=== PATIENT | female | born 1940 | race Caucasian/White ===

== ENCOUNTER 2017-10-14 16:54 | Inpatient (IN) | payer MEDICARE ==
[~2017-10-14] VITALS: Ht 170.2 cm; Wt 63.6 kg
[~2017-10-14 16:54] MED LIST: ALBUTEROL SULF8.5 GM; ALLOPURINOL100 MG PO; AMLODIPINE BESY10 MG PO; FISH OIL500 M1 PO; FUROSEMIDE40 MG PO; KIONEX15 GM/60 M PO; METOPROLOL TART50 MG PO; RENVELA800 MG PO; SODIUM BICARBO650 MG PO; VITAMIN D-32000 UNIT PO; WARFARIN SODIU7.5 MG PO; WARFARIN SODIUM1 MG PO
[2017-10-14] MEDS ORDERED: ONDANSETRON HCL INJ 2 MG/ML VIAL IV STA (17:24)
[2017-10-14] MEDS ORDERED: PANTOPRAZOLE 40 MG 10ML VIAL IV STA (17:24)
[2017-10-14] MEDS ORDERED: SODIUM CHLORIDE 0.9% 1000ML 500 ML IV STA (17:24)
[2017-10-14] MEDS ORDERED: SODIUM CHLORIDE 0.9% 1000ML 1,000 ML IV STA (17:24)
[2017-10-14 17:56] LABS: BASOPHILS % 0.2 % (0.0-1.0); HEMATOCRIT 40.5 % (34.2-44.1); HEMOGLOBIN 13.7 g/dL (12.0-16.0); LYMPHOCYTES # (AUTO) 0.8 (1.0-3.2); LYMPHOCYTES % 12.6 % (18.0-39.1); MEAN CORPUSCULAR HEMOGLOBIN 32.8 pg (28-32); MEAN CORPUSCULAR HGB CONC 33.8 g/dL (31-35); MEAN CORPUSCULAR VOLUME 96.9 fL (81-99); MONOCYTES # (AUTO) 0.7 (0.2-0.8); MONOCYTES % 11.6 % (4.4-11.3); NEUTROPHILS # (AUTO) 4.6 (2.1-6.9); NEUTROPHILS % 75.3 % (38.7-80.0); PLATELET COUNT 208 x10e3/uL (140-360); RED BLOOD COUNT 4.18 x10e6/uL (3.6-5.1); RED CELL DISTRIBUTION WIDTH 13.2 % (11.7-14.4)
--- NOTE | 2017-10-14 18:04 | Diagnostic Imaging Report ---
PROCEDURE: A single AP view of the chest. COMPARISON: 07/17/16 INDICATIONS: DEHYDRATION, COUGH FINDINGS: Lines/tubes: None. Lungs: The lungs are well inflated and clear. There is no evidence of pneumonia or pulmonary edema. Pleura: There is no pleural effusion or pneumothorax. Heart and mediastinum: The heart and the mediastinum are unremarkable. Bones: No acute bony abnormality. Questionable air under right hemidiaphragm. IMPRESSION: No acute cardiopulmonary disease. Questionable air under right hemidiaphragm, suspicious for pneumoperitoneum. Alternatively this could be artifactual. Recommend repeat with left lateral decubitus views to further evaluate. Dictated by: Kingsley Mitchell M.D. on 10/14/2017 at 18:12 Electronically approved by: Kingsley Mitchell M.D. on 10/14/2017 at 18:12
[2017-10-14 18:12] LABS: INR 1.74; PROTHROMBIN TIME 21.3 seconds (11.9-14.5)
[2017-10-14 18:13] LABS: PARTIAL THROMBOPLASTIN TIME 57.7 seconds (23.8-35.5)
[2017-10-14 18:20] LABS: ALBUMIN 2.6 g/dL (3.5-5.0); ALBUMIN/GLOBULIN RATIO 0.7 (0.8-2.0); ANION GAP 20.9 mmol/L (8-16); CALCIUM 8.2 mg/dL (8.4-10.2); CREATININE, SERUM 7.76 mg/dL (0.57-1.11); MAGNESIUM 2.4 MG/DL (1.3-2.1); POTASSIUM 3.9 mmol/L (3.5-5.1)
[2017-10-14] MEDS ORDERED: SODIUM CHLORIDE 0.9% 1000ML 1,000 ML IV SCH (18:22)
[2017-10-14] MEDS ORDERED: LEVALBUTEROL HCL SOLN NEBU 1.25 MG/3 ML NEB INH PRN (18:30)
[2017-10-14] MEDS ORDERED: FENTANYL CITRATE/PF 100MCG/2 ML INJ IV ONE (18:30)
[2017-10-14] MEDS ORDERED: ONDANSETRON HCL INJ 2 MG/ML VIAL IV PRN (18:30)
[2017-10-14 18:39] LABS: THYROID STIMULATING HORMONE 3.884 uIU/mL (0.350-4.940); TROPONIN I 0.056 ng/mL (0-0.300)
[2017-10-14] MEDS: IPRATROPIUM BROMIDE 0.02% 2.5 ML NEB NEB SCH (19:00)
[2017-10-14] MEDS ORDERED: IOPAMIDOL 370 MG/ML 200 ML INFUS..BTL INJ ONE (19:22)
[2017-10-14] MEDS ORDERED: SODIUM CHLORIDE 0.9% 50ML 50 ML ONE (19:22)
--- NOTE | 2017-10-14 19:42 | Diagnostic Imaging Report ---
CT scan abdomen and pelvis. October 14, 2017 Clinical history: Dehydration with abdominal pain Technique: Routine protocol CT abdomen and pelvis performed after 100 mL Isovue-370 intravenous contrast. Water enteric contrast was administered. Coronal, sagittal and axial images generated from source data. Dose: 258.81 mGy-cm Comparison: None Findings: Right lower lobe calcified granuloma. Lung bases otherwise clear. No pleural effusions. Normal heart size. Liver: Normal Gallbladder: Normal. No bile duct dilation. Pancreas: Normal Spleen: Normal Adrenal glands: Normal Kidneys: Bilaterally atrophic. Numerous cysts bilaterally (greater than 10 on each kidney) with the largest measuring up to 2 cm in diameter. Ureters and urinary bladder: Normal. Moderate fluid volume in the urinary bladder. Uterus and adnexa: Normal Bowel: Normal caliber. Normal appendix. Peritoneum: Indwelling peritoneal dialysis catheter. Associated pneumoperitoneum. Trace pelvic ascites. Vasculature: Moderate atherosclerosis of the abdominal aorta, iliac arteries and common femoral arteries. Normal caliber. Lymph nodes: Normal Skeleton: Intact. L5-S1 predominant degenerative disc disease, with near complete loss of disc space height. Soft tissues: Normal Impression: 1. No acute abnormality. 2. Indwelling peritoneal dialysis catheter with expected associated pneumoperitoneum. 3. Polycystic kidney disease with atrophic kidneys. This report was generated with voice-recognition technology. Errors in resistance machine welder setter can occur. Please interpret accordingly and contact a radiologist if there are any questions regarding the report. Signed by: Dr. Johnny Woods M.D. on 10/14/2017 7:39 PM
[2017-10-14 22:31] VITALS: BP 114/65
[2017-10-15] VITALS: BP 114/65
[2017-10-15] MEDS: IPRATROPIUM BROMIDE 0.02% 2.5 ML NEB NEB SCH ×2 (01:25→07:00)
[2017-10-15 04:00] VITALS: BP 107/58
[2017-10-15 08:13] LABS: BASOPHILS % 0.2 % (0.0-1.0); EOSINOPHILS % 0.4 % (0.0-6.0); HEMATOCRIT 33.9 % (34.2-44.1); HEMOGLOBIN 11.2 g/dL (12.0-16.0); LYMPHOCYTES # (AUTO) 1.2 (1.0-3.2); LYMPHOCYTES % 25.8 % (18.0-39.1); MEAN CORPUSCULAR HEMOGLOBIN 32.3 pg (28-32); MEAN CORPUSCULAR VOLUME 97.7 fL (81-99); MONOCYTES # (AUTO) 0.5 (0.2-0.8); MONOCYTES % 10.6 % (4.4-11.3); NEUTROPHILS # (AUTO) 2.9 (2.1-6.9); NEUTROPHILS % 62.8 % (38.7-80.0); PLATELET COUNT 189 x10e3/uL (140-360); RED BLOOD COUNT 3.47 x10e6/uL (3.6-5.1); RED CELL DISTRIBUTION WIDTH 13.2 % (11.7-14.4)
[2017-10-15 08:41] LABS: ALBUMIN/GLOBULIN RATIO 0.7 (0.8-2.0); ANION GAP 19.7 mmol/L (8-16); CALCIUM 7.1 mg/dL (8.4-10.2); CREATININE, SERUM 7.77 mg/dL (0.57-1.11); MAGNESIUM 1.9 MG/DL (1.3-2.1); PHOSPHORUS 10.1 MG/DL (2.3-4.7); POTASSIUM 3.7 mmol/L (3.5-5.1)
[2017-10-15 08:42] VITALS: BP 114/58
== END 2017-10-15 08:44 | disposition left against medical advice (07) | DRG 640 ==
LOC: ER 16:54 → ERHOLD 18:36 → MED/SURG3 20:23
PROVIDERS: ADMIT Internal Medicine; ATTEND Internal Medicine
DX: E86.0 Dehydration (principal); N18.6 End stage renal disease; J44.9 Chronic obstructive pulmonary disease, unspecified; Z99.2 Dependence on renal dialysis; F17.200 Nicotine dependence, unspecified, uncomplicated; R60.0 Localized edema; R00.0 Tachycardia, unspecified
CPT/HCPCS: 36415; 71010; 74177; 80053; 82550; 82553; 83690; 83735; 83880; 84100; 84443; 84484; 85025; 85610; 85730; 86850; 86900; 87040; 93005; 99284; J2405; J7030; Q9967

== ENCOUNTER 2018-04-15 04:57 | Inpatient (IN) | payer MEDICARE ==
[2018-04-15 08:00] VITALS: BP 99/88
[2018-04-15 10:22] LABS: BASOPHILS % 0.2 % (0.0-1.0); EOSINOPHILS % 0.2 % (0.0-6.0); HEMATOCRIT 34.2 % (34.2-44.1); HEMOGLOBIN 11.7 g/dL (12.0-16.0); LYMPHOCYTES # (AUTO) 0.8 (1.0-3.2); LYMPHOCYTES % 5.5 % (18.0-39.1); MEAN CORPUSCULAR HEMOGLOBIN 32.3 pg (28-32); MEAN CORPUSCULAR HGB CONC 34.2 g/dL (31-35); MEAN CORPUSCULAR VOLUME 94.5 fL (81-99); MONOCYTES # (AUTO) 1.1 (0.2-0.8); MONOCYTES % 7.6 % (4.4-11.3); NEUTROPHILS # (AUTO) 12.8 (2.1-6.9); NEUTROPHILS % 85.8 % (38.7-80.0); PLATELET COUNT 268 x10e3/uL (140-360); RED BLOOD COUNT 3.62 x10e6/uL (3.6-5.1); RED CELL DISTRIBUTION WIDTH 13.3 % (11.7-14.4)
[2018-04-15] MEDS ORDERED: VANCOMYCIN 1GM/NS 250 ML 250 ML IV SCH (11:00)
[2018-04-15] MEDS ORDERED: VANCOMYCIN 1GM/NS 250 ML 250 ML IV ONE (11:15)
[2018-04-15] MEDS ORDERED: ONDANSETRON HCL INJ 2 MG/ML VIAL IV PRN (11:30)
[2018-04-15 12:00] VITALS: BP 103/70
[2018-04-15] MEDS ORDERED: ACETAMINOPHEN 325 MG TAB PO PRN (12:15)
[2018-04-15] MEDS ORDERED: SODIUM CHLORIDE 0.9% IV ONE (13:00)
[2018-04-15] MEDS ORDERED: VANCOMYCIN HCL IV ONE (13:00)
[2018-04-15 13:15] LABS: INR 1.16; PROTHROMBIN TIME 13.9 seconds (11.9-14.5)
[2018-04-15 13:16] LABS: PARTIAL THROMBOPLASTIN TIME 33.8 seconds (23.8-35.5)
[2018-04-15 16:00] VITALS: BP 100/56
[2018-04-15 18:17] LABS: BODY FLUID TYPE PERITONEAL
[2018-04-15 18:19] LABS: BODY FLUID APPEARANCE CLEAR; BODY FLUID COLOR YELLOW
[2018-04-15 18:22] LABS: RBC,BODY FLUID 5 cells/uL; WBC,BODY FLUID 22 cells/uL
[2018-04-15 20:00] VITALS: BP 100/46
[2018-04-15 20:18] VITALS: BP 100/46
--- NOTE | 2018-04-15 20:21 | Consultation ---
DATE OF CONSULTATION: April 15, 2018 REQUESTING PHYSICIAN: Dr. Orozco. REASON FOR CONSULTATION: CKD, end-stage renal disease. Thank you for allowing us to participate in Ms. Giselle Mclaughlin's care. HISTORY OF PRESENT ILLNESS: This is a 77-year-old female with history of end-stage renal disease, maintained on peritoneal dialysis, came in with worsening abdominal discomfort, mostly epigastric, nausea and vomiting. Peritoneal dialysis fluid has been cleared. She has already been seen at [facility] and subsequently transferred here as they do not have peritoneal dialysis services nor supplies. It was noted that there possibly was more free air than would be expected from simple PD. She think may have had a fever, which she is not entirely sure. No definite contamination is identified during PD process at home. PAST HISTORY: COPD, hypertension, tobacco use, secondary hyperparathyroidism, history of peritoneal dialysis. ALLERGIES: NONE KNOWN. FAMILY HISTORY: Dementia. SOCIAL HISTORY: A 50-pack year history of smoking in the past. MEDICATIONS: Please see list. REVIEW OF SYSTEMS CONSTITUTIONAL: May have had a fever, currently none. GI: Nausea and vomiting plus. CARDIAC: Denying angina or syncope. RESPIRATORY: Some chronic dyspnea, currently not wheezing. NEURO: Denying headache, seizures, but does feel a bit weak. Rest of review is negative. PHYSICAL EXAMINATION GENERAL: Lying in bed in no distress. VITAL SIGNS: Temperature 98, blood pressure 99/88, and pulse 74. HEENT: Atraumatic. NECK: Neck veins are flat. CHEST: Clear. Diminished breath sounds at the bases. ABDOMEN: Soft, but there is definitely some generalized tenderness mostly in the upper half. PD catheter in place. EXTREMITIES: No edema. SKIN: Some sun damage. NEURO: Alert and appropriate. Speech is normal. LABORATORY DATA: Hemoglobin is 11.7. Electrolytes are pending. ASSESSMENT 1. Abdominal pain and end-stage renal disease. Patient is on peritoneal dialysis. There is concerned for peritoneal dialysis peritonitis. 2. History of hypertension, although currently blood pressure somewhat low. She may be volume depleted. 3. History of secondary hyperparathyroidism and hyperphosphatemia that need to be rechecked. PLAN 1. Recheck chemistries in the morning. Get PD fluid for cell counts and cultures. Given the extended , we would go ahead and put in some vancomycin IP at about 30 mg/kg while we are awaiting on the cell counts and cultures results to confirm. 2. Encourage oral hydration for the time being. 3. We will order IV Zofran for the nausea. Job#: [id number] KEYONA
[2018-04-15] MEDS ORDERED: SODIUM CHLORIDE 0.9% 250ML 250 ML ONE (21:43)
[2018-04-15 21:50] LABS: LYMPHOCYTES,BODY FLUID 30 %; MONO/MACROPHG,BODY FLUID 30 %; NEUTROPHILS,BODY FLUID 40 %
[2018-04-15] MEDS: PIPER-TAZ 3.375 GM / NS 50ML IV SCH (21:54)
[2018-04-16] VITALS (7 sets, daily range): BP systolic 82–117; BP diastolic 37–55
[2018-04-16 06:53] LABS: HEMATOCRIT 34.9 % (34.2-44.1); HEMOGLOBIN 11.7 g/dL (12.0-16.0)
[2018-04-16 07:17] LABS: ANION GAP 20.8 mmol/L (8-16); CALCIUM 8.5 mg/dL (8.4-10.2); CREATININE, SERUM 7.64 mg/dL (0.57-1.11); PHOSPHORUS 8.1 MG/DL (2.3-4.7); POTASSIUM 3.8 mmol/L (3.5-5.1)
[2018-04-16 07:32] LABS: ALBUMIN 2.2 g/dL (3.5-5.0); BILIRUBIN,DIRECT 0.4 mg/dL (0.0-0.5)
[2018-04-16 07:38] LABS: INR 1.1; PROTHROMBIN TIME 13.4 seconds (11.9-14.5)
[2018-04-16 07:39] LABS: PARTIAL THROMBOPLASTIN TIME 29.3 seconds (23.8-35.5)
[2018-04-16] MEDS: PIPER-TAZ 3.375 GM / NS 50ML IV SCH ×2 (09:00→22:41)
[2018-04-16] MEDS: FAMOTIDINE 20 MG TAB PO SCH ×2 (09:11→09:12)
[2018-04-16] MEDS: MIDODRINE 2.5 MG TAB PO SCH ×3 (09:11→18:39)
[2018-04-16] MEDS: SEVELAMER CARBONATE 800 MG TAB PO SCH ×2 (12:00→18:40)
[2018-04-16] MEDS: HEPARIN SOD (PORCINE) 5,000 UNIT/ML VIAL SC SCH (22:41)
[2018-04-17] VITALS (7 sets, daily range): BP systolic 95–113; BP diastolic 51–62
[2018-04-17 06:32] LABS: BASOPHILS # (AUTO) 0.1 (0.0-0.1); BASOPHILS % 0.3 % (0.0-1.0); EOSINOPHILS # (AUTO) 0.2 (0.0-0.4); EOSINOPHILS % 1.5 % (0.0-6.0); HEMATOCRIT 37.3 % (34.2-44.1); HEMOGLOBIN 12.4 g/dL (12.0-16.0); LYMPHOCYTES # (AUTO) 1.3 (1.0-3.2); LYMPHOCYTES % 8.4 % (18.0-39.1); MEAN CORPUSCULAR HEMOGLOBIN 32.4 pg (28-32); MEAN CORPUSCULAR HGB CONC 33.2 g/dL (31-35); MEAN CORPUSCULAR VOLUME 97.4 fL (81-99); MONOCYTES # (AUTO) 1.4 (0.2-0.8); MONOCYTES % 8.7 % (4.4-11.3); NEUTROPHILS # (AUTO) 12.4 (2.1-6.9); NEUTROPHILS % 80.5 % (38.7-80.0); PLATELET COUNT 279 x10e3/uL (140-360); RED BLOOD COUNT 3.83 x10e6/uL (3.6-5.1); RED CELL DISTRIBUTION WIDTH 13.2 % (11.7-14.4)
[2018-04-17 06:44] LABS: ANION GAP 20.9 mmol/L (8-16); CALCIUM 8.6 mg/dL (8.4-10.2); CREATININE, SERUM 7.17 mg/dL (0.57-1.11); POTASSIUM 3.9 mmol/L (3.5-5.1)
[2018-04-17] MEDS: MIDODRINE 2.5 MG TAB PO SCH ×3 (08:43→16:30)
[2018-04-17] MEDS: FAMOTIDINE 20 MG TAB PO SCH (08:43)
[2018-04-17] MEDS: PIPER-TAZ 3.375 GM / NS 50ML IV SCH (08:43)
[2018-04-17] MEDS: SEVELAMER CARBONATE 800 MG TAB PO SCH ×3 (08:43→17:11)
[2018-04-17] MEDS: HEPARIN SOD (PORCINE) 5,000 UNIT/ML VIAL SC SCH (08:45)
--- NOTE | 2018-04-17 19:02 | Consultation ---
DATE OF CONSULTATION: April 17, 2018 REASON FOR CONSULTATION: Abdominal pain and leukocytosis. Thank you, Dr. Orozco, for asking me to see this patient. HISTORY: The patient is a 77-year-old woman here for abdominal pain and leukocytosis. She was transferred from [facility] because they did not have peritoneal dialysis services. She presented there with epigastric pain associated with nausea, but did not vomit. She denies diarrhea and fever. Also, she did not eat out. CT scan of the abdomen and pelvis at [facility] showed moderate free air within the abdomen, which could be related to peritoneal dialysis or bowel perforation was not excluded. Initial laboratory studies showed a white blood cell count of 16,900 and serum lipase 87. Later, peritoneal fluid at [facility] was clear with wbcs of 22 and neutrophils 40. Currently, the patient feels fine and wants to go home. PAST MEDICAL HISTORY: Hypertension, chronic obstructive pulmonary disease, end-stage renal disease, on peritoneal dialysis for 3 years. PAST SURGICAL HISTORY: Subtotal thyroidectomy and peritoneal dialysis catheter placement. ALLERGIES: NO KNOWN DRUG ALLERGIES. MEDICATIONS: The current antibiotic is Zosyn 3.375 g IVPB q.12 h. She received 4 g of vancomycin in dual with dialysate yesterday. IMMUNIZATIONS: She received pneumococcal and tetanus vaccination prior to admission. FAMILY HISTORY: Significant for Alzheimer disease. SOCIAL HISTORY: She still smokes cigarettes about 1 pack a day for more than 50 years. No alcohol use. REVIEW OF SYSTEMS: As per history of present illness. The patient denies fever, chills, cough, shortness of breath, nausea, vomiting. Abdominal pain has resolved. There is no diarrhea. She has a good appetite and eating well. She makes very little urine and has no dysuria. The patient reports having receiving dialysis catheter for more than 3 years, and she is meticulous at home with peritoneal dialysis catheter care. She does not recall any infection of the peritoneal dialysis catheter site or peritonitis since commencing with peritoneal dialysis about 3 years ago. PHYSICAL EXAMINATION GENERAL: In no acute distress. Does not appear toxic. VITAL SIGNS: T-max 97.7, pulse 75, respiratory rate 18, blood pressure 97/56. Weight 142 pounds. HEENT: Normocephalic. There is no icterus or injection of conjunctivae. There is no ear or nasal discharge. Moist oral mucosa. No pharyngeal erythema is noted. NECK: Supple. No lymphadenopathy or meningismus. LUNGS: Clear to auscultation bilaterally. HEART: Normal S1 and S2. ABDOMEN: The peritoneal dialysis catheter site is without redness. Milking the catheter site produced no discharge. There is no tenderness on palpation. Also, there is no rebound tenderness. EXTREMITIES: There is no edema, clubbing or cyanosis. SKIN: There is no acute erythema. DIRECTOR OF LITIGATION: Awake, alert and oriented to person, place and time. Nonfocal. LABORATORY AND DIAGNOSTICS: WBC 15,430, hemoglobin 12.4 and platelets 279,000. Neutrophils 80.5, lymphs 8.4, monos 8.7, eosinophils 1.5, basophils 0.3. AST 8, ALT 10, alk phos 107, total bilirubin 0.7, lipase 11. Gram stain of peritoneal fluid showed few wbcs. No organisms. The culture showed no growth after 2 days. IMPRESSION 1. Leukocytosis: Etiology is unclear at this time. 2. Epigastric pain: May be due to gastritis. Peritonitis appears less likely with peritoneal fluid white blood cells of 22. 3. End-stage renal disease, on peritoneal dialysis. 4. Chronic obstructive pulmonary disease. 5. Tobacco use disorder. PLAN 1. Await peritoneal fluid culture results. 2. Switch Zosyn to 2.25 g IVPB q.12 h. Antibiotics should be stopped if final culture result is negative. 3. Smoking cessation counseling has been provided to the patient. Job#: [id number] NV
[2018-04-17] MEDS: APIXABAN 5 MG TABLET PO SCH (20:51)
--- NOTE | 2018-04-17 21:48 | Consultation ---
DATE OF CONSULTATION: April 16, 2018 REQUESTING PHYSICIAN: Dr. Eugenio Orozco REASON FOR CONSULTATION: Evaluation and management of the patient with known history of right leg DVT, chronic greater saphenous vein thrombosis and history of lupus anticoagulant. HISTORY OF PRESENT ILLNESS: Ms. Mclaughlin is a very pleasant, 77-year-old female with multiple medical problems including known history of COPD, hypertension, secondary hyperparathyroidism, end-stage renal disease on peritoneal dialysis, history of right leg DVT and right greater saphenous vein thrombosis as well as positive lupus anticoagulant. In the past, she had been evaluated by hematology and recommended life-long anticoagulation at [facility]. She had been followed at [facility]mad[facility] clinic, but apparently having hard time maintaining INR. She was admitted to the inpatient floor with abdominal discomfort which was felt to be due to infection. She has been started on IV antibiotics and infectious disease on board. Hematology, oncology has been consulted to assist with the management. Presently, the patient is lying comfortably, not in acute distress. She is breathing normally. She denies any nausea, vomiting. PAST MEDICAL HISTORY: 1. COPD. 2. Hypertension. 3. End-stage renal disease on peritoneal dialysis. 4. Hyperparathyroidism. 5. History of right leg DVT. 6. History of right chronic greater saphenous vein thrombosis. 7. History of positive lupus anticoagulants. 8. Chronic anticoagulation with refractoriness to Coumadin therapy. ALLERGIES: NO KNOWN DRUG ALLERGIES. FAMILY HISTORY: Positive for dementia. SOCIAL HISTORY: The patient has been heavy smoker with [id number] history. Denies alcohol use or illicit drug use. CURRENT MEDICATIONS: As per electronic medical records. SYSTEM REVIEW: A 14-point review of systems negative except as mentioned above in history of presenting illness. PHYSICAL EXAMINATION VITAL SIGNS: Reviewed and as per electronic medical record. HEENT: PERRLA. Extraocular movements are intact. Head atraumatic, normocephalic. NECK: Supple. CVS: S1/S2 audible. RESPIRATORY: Decreased bilateral air entry. ABDOMEN: Positive bowel sounds. EXTREMITIES: Negative edema. NEURO: Patient is alert, awake. LABORATORY DATA: White blood cell count of 15.4, hemoglobin 12.4, hematocrit 37.3, platelets 279,000. INR 1.1. ASSESSMENT AND PLAN: Ms. Mclaughlin is a very pleasant 77-year-old female with multiple medical problems including known history of end-stage renal disease on peritoneal dialysis as well as history of right leg DVT and positive lupus anticoagulant. She presented with abdominal pain. She had been started on IV antibiotics for presumed peritonitis. CT scan of the abdomen was performed and did not show any acute abnormalities. I had a long discussion with the patient about her current status. She has been having difficult time maintaining INR and it continues to stay on the low side. Apparently in the past she has been recommended to be on life-long anticoagulation due to chronic thrombosis as well as positive lupus anticoagulant. At this point, recommendation would be to discontinue Coumadin as well as heparin. I will start the patient on Eliquis, renal adjusted dose at 5 mg p.o. q.12 h. She needs a close followup as an outpatient. Thank you for the consult. I will continue to be available. Please call with questions. Job#: [id number] GH [id number]
[2018-04-17] MEDS: PIPERACILLIN/TAZO 2.25 GM 50 ML IV SCH (22:15)
[2018-04-18] VITALS (7 sets, daily range): BP systolic 102–120; BP diastolic 48–75
[2018-04-18 05:50] LABS: BASOPHILS % 0.3 % (0.0-1.0); EOSINOPHILS % 0.3 % (0.0-6.0); HEMATOCRIT 34.3 % (34.2-44.1); HEMOGLOBIN 11.2 g/dL (12.0-16.0); LYMPHOCYTES # (AUTO) 2.8 (1.0-3.2); MEAN CORPUSCULAR HEMOGLOBIN 29.6 pg (28-32); MEAN CORPUSCULAR HGB CONC 32.7 g/dL (31-35); MEAN CORPUSCULAR VOLUME 90.5 fL (81-99); MONOCYTES # (AUTO) 1.2 (0.2-0.8); MONOCYTES % 8.3 % (4.4-11.3); NEUTROPHILS # (AUTO) 9.8 (2.1-6.9); NEUTROPHILS % 70.6 % (38.7-80.0); PLATELET COUNT 169 x10e3/uL (140-360); RED BLOOD COUNT 3.79 x10e6/uL (3.6-5.1); RED CELL DISTRIBUTION WIDTH 13.6 % (11.7-14.4)
[2018-04-18 07:13] LABS: ANION GAP 15.7 mmol/L (8-16); CREATININE, SERUM 1.77 mg/dL (0.57-1.11); POTASSIUM 3.7 mmol/L (3.5-5.1)
[2018-04-18] MEDS: PIPERACILLIN/TAZO 2.25 GM 50 ML IV SCH ×2 (08:53→22:07)
[2018-04-18] MEDS: MIDODRINE 2.5 MG TAB PO SCH ×3 (08:53→16:26)
[2018-04-18] MEDS: SEVELAMER CARBONATE 800 MG TAB PO SCH ×3 (08:53→16:26)
[2018-04-18] MEDS: APIXABAN 5 MG TABLET PO SCH ×2 (08:53→22:07)
[2018-04-18] MEDS: FAMOTIDINE 20 MG TAB PO SCH (08:53)
[2018-04-18] MEDS ORDERED: LACTULOSE SYRUP 20 GM/30 ML UDC PO ONE (09:00)
[2018-04-18] MEDS ORDERED: HEPARIN SOD (PORCINE) 1000 UNIT/ML 10ML MDV IM ONE (20:45)
[2018-04-18] MEDS ORDERED: HEPARIN SOD (PORCINE) 1000 UNIT/ML SDV IV PRN (20:45)
--- NOTE | 2018-04-18 21:43 | Consultation ---
DATE OF CONSULTATION: April 18, 2018 This is a 77-year-old, who presented with abdominal pain and some leukocytosis. Pain was in epigastric area associated with some nausea, but she denies any vomiting with this problem. She denies any history of ulcer disease in the past. She reports that the pain actually is better now. She had a CAT scan of abdomen and pelvis upon admission initially, which showed moderate free air within the abdomen, which could be related to peritoneal dialysis. Initial laboratory was showing white blood cell count, which is 16.9. She currently feels okay and denies any abdominal pain. Other medical problems include history of hypertension, history of COPD, end-stage renal disease on peritoneal dialysis for 3 years. She is status post subtotal thyroidectomy. ALLERGIES: NONE. CURRENT MEDICATIONS: Renvela, , Eliquis, Pepcid, Zofran. SOCIAL HISTORY: No alcohol use. FAMILY HISTORY: Noncontributory. REVIEW OF SYSTEMS: Denies any chest pain. Denies any shortness of breath. Denies any dysphagia or odynophagia. Denies any dysuria or hematuria or any kind of syncopal episodes. EXAMINATION GENERAL: Awake, alert, appears to be stable. No acute distress at this point. VITAL SIGNS: Afebrile currently with stable vital signs. HEAD, EYES, EARS, NOSE, THROAT: Normocephalic. Sclerae are anicteric. NECK: Supple. HEART: Regular. LUNGS: Clear. ABDOMEN: Soft. There is no distention at this point. Nontender at this point. There is no rebound. EXTREMITIES: No clubbing. LAB VALUES: As of today, WBC of 13.87. BUN 44, creatinine 1.77. IMPRESSIONS 1. Abdominal pain. Patient initially had nausea. Currently is doing better. 2. End-stage renal disease, on hemodialysis. 3. Leukocytosis. Etiology unclear at this point. RECOMMENDATIONS: Continue on the current care at this point. Patient reports that she is doing better, so I will not do any endoscopy at this point. If symptoms persist or recur, then we will consider upper endoscopy. Job#: [id number] cc:MD DR PAN VILLANUEVA
[2018-04-19] VITALS (7 sets, daily range): BP systolic 70–107; BP diastolic 37–60
[2018-04-19] MEDS ORDERED: MIDODRINE 2.5 MG TAB PO ONE (04:45)
[2018-04-19] MEDS ORDERED: MIDODRINE 2.5 MG TAB PO SCH (08:00)
[2018-04-19] MEDS: FAMOTIDINE 20 MG TAB PO SCH (08:15)
[2018-04-19] MEDS: PIPERACILLIN/TAZO 2.25 GM 50 ML IV SCH ×2 (08:15→20:43)
[2018-04-19] MEDS: SEVELAMER CARBONATE 800 MG TAB PO SCH ×3 (08:15→17:15)
[2018-04-19] MEDS: APIXABAN 5 MG TABLET PO SCH ×2 (08:15→20:43)
[2018-04-19] MEDS: MIDODRINE 2.5 MG TAB PO SCH ×2 (11:01→17:15)
[2018-04-20] VITALS (7 sets, daily range): BP systolic 79–116; BP diastolic 47–62
[2018-04-20 06:41] LABS: BASOPHILS % 0.2 % (0.0-1.0); EOSINOPHILS # (AUTO) 0.3 (0.0-0.4); HEMATOCRIT 33.9 % (34.2-44.1); HEMOGLOBIN 11.2 g/dL (12.0-16.0); LYMPHOCYTES # (AUTO) 1.4 (1.0-3.2); LYMPHOCYTES % 9.8 % (18.0-39.1); MEAN CORPUSCULAR HEMOGLOBIN 32.2 pg (28-32); MEAN CORPUSCULAR VOLUME 97.4 fL (81-99); MONOCYTES # (AUTO) 1.1 (0.2-0.8); MONOCYTES % 7.6 % (4.4-11.3); NEUTROPHILS # (AUTO) 11.2 (2.1-6.9); NEUTROPHILS % 79.4 % (38.7-80.0); PLATELET COUNT 360 x10e3/uL (140-360); RED BLOOD COUNT 3.48 x10e6/uL (3.6-5.1); RED CELL DISTRIBUTION WIDTH 13.1 % (11.7-14.4)
[2018-04-20 06:55] LABS: ANION GAP 20.4 mmol/L (8-16); CALCIUM 8.5 mg/dL (8.4-10.2); CREATININE, SERUM 6.07 mg/dL (0.57-1.11); POTASSIUM 3.4 mmol/L (3.5-5.1)
[2018-04-20] MEDS: SEVELAMER CARBONATE 800 MG TAB PO SCH ×3 (08:20→17:12)
[2018-04-20] MEDS: MIDODRINE 2.5 MG TAB PO SCH ×3 (08:20→16:19)
[2018-04-20] MEDS: APIXABAN 5 MG TABLET PO SCH ×2 (09:36→21:20)
[2018-04-20] MEDS: FAMOTIDINE 20 MG TAB PO SCH (09:36)
[2018-04-20] MEDS: PIPERACILLIN/TAZO 2.25 GM 50 ML IV SCH (09:40)
[2018-04-20] MEDS ORDERED: SODIUM CHLORIDE 0.9% 1000ML 1,000 ML IV ONE (15:00)
--- NOTE | 2018-04-20 15:09 | Discharge Summary ---
INCOMPLETE REPORT - CANCELLED REGGIE PERLA M.D. Job#: [id number] EV
[2018-04-21] VITALS (9 sets, daily range): BP systolic 101–112; BP diastolic 48–59
[2018-04-21 06:47] LABS: CREATININE, SERUM 7.19 mg/dL (0.57-1.11)
[2018-04-21 07:12] LABS: BASOPHILS % 0.2 % (0.0-1.0); EOSINOPHILS # (AUTO) 0.3 (0.0-0.4); EOSINOPHILS % 2.4 % (0.0-6.0); HEMATOCRIT 30.4 % (34.2-44.1); HEMOGLOBIN 10.1 g/dL (12.0-16.0); LYMPHOCYTES % 15.8 % (18.0-39.1); MEAN CORPUSCULAR HEMOGLOBIN 32.2 pg (28-32); MEAN CORPUSCULAR HGB CONC 33.2 g/dL (31-35); MEAN CORPUSCULAR VOLUME 96.8 fL (81-99); MONOCYTES # (AUTO) 1.1 (0.2-0.8); MONOCYTES % 8.4 % (4.4-11.3); NEUTROPHILS # (AUTO) 9.2 (2.1-6.9); NEUTROPHILS % 72.3 % (38.7-80.0); PLATELET COUNT 364 x10e3/uL (140-360); RED BLOOD COUNT 3.14 x10e6/uL (3.6-5.1); RED CELL DISTRIBUTION WIDTH 13.1 % (11.7-14.4)
[2018-04-21] MEDS: SEVELAMER CARBONATE 800 MG TAB PO SCH ×3 (08:35→16:26)
[2018-04-21] MEDS: MIDODRINE 2.5 MG TAB PO SCH ×3 (08:35→16:26)
[2018-04-21] MEDS: APIXABAN 5 MG TABLET PO SCH ×2 (08:35→19:55)
[2018-04-21] MEDS: FAMOTIDINE 20 MG TAB PO SCH (08:35)
[2018-04-21] MEDS ORDERED: HEPARIN SOD (PORCINE) 1000 UNIT/ML SDV IV PRN (11:30)
--- NOTE | 2018-04-21 13:28 | Diagnostic Imaging Report ---
PROCEDURE:X-RAY ABDOMEN - KUB COMPARISON:CT abdomen and pelvis with contrast 10/14/2017. INDICATIONS:PERITONITIS FINDINGS: Indwelling peritoneal dialysis catheter is unchanged in position. Bowel gas pattern shows no dilated, air-filled loops of bowel. Gas and fecal material is noted throughout the large bowel. No mass effect or organomegaly. Right lower lobe calcified granuloma with otherwise clear lung bases. Regional skeletal structures are intact. Degenerative changes of the sacroiliac joints. CONCLUSION: Nonobstructive bowel gas pattern. Dictated by: Bob Ghosh M.D. on 04/21/2018 at 13:32 Electronically approved by: Bob Ghosh M.D. on 04/21/2018 at 13:32
--- NOTE | 2018-04-21 17:40 | Diagnostic Imaging Report ---
PROCEDURE:X-RAY ABDOMEN - KUB COMPARISON:Same day at 1251 hrs. INDICATIONS:PD CATHETER FINDINGS: See conclusion. CONCLUSION: Limited study due to underpenetration. Indwelling peritoneal dialysis catheter is unchanged in position. Nonobstructive bowel gas pattern. Dictated by: Kingsley Mitchell M.D. on 04/21/2018 at 17:44 Electronically approved by: Kingsley Mitchell M.D. on 04/21/2018 at 17:44
[2018-04-22 04:40] VITALS: BP 105/49
[2018-04-22 06:21] LABS: BASOPHILS % 0.2 % (0.0-1.0); EOSINOPHILS # (AUTO) 0.3 (0.0-0.4); EOSINOPHILS % 2.6 % (0.0-6.0); HEMATOCRIT 29.7 % (34.2-44.1); HEMOGLOBIN 9.8 g/dL (12.0-16.0); LYMPHOCYTES # (AUTO) 1.9 (1.0-3.2); MEAN CORPUSCULAR VOLUME 97.1 fL (81-99); MONOCYTES # (AUTO) 0.8 (0.2-0.8); NEUTROPHILS # (AUTO) 8.5 (2.1-6.9); NEUTROPHILS % 73.1 % (38.7-80.0); PLATELET COUNT 373 x10e3/uL (140-360); RED BLOOD COUNT 3.06 x10e6/uL (3.6-5.1)
[2018-04-22 06:33] LABS: ANION GAP 17.8 mmol/L (8-16); CALCIUM 8.2 mg/dL (8.4-10.2); CREATININE, SERUM 6.5 mg/dL (0.57-1.11); POTASSIUM 3.8 mmol/L (3.5-5.1)
[2018-04-22 07:57] VITALS: BP 105/49
[2018-04-22] MEDS: MIDODRINE 2.5 MG TAB PO SCH ×2 (08:00→11:56)
[2018-04-22] MEDS: SEVELAMER CARBONATE 800 MG TAB PO SCH ×2 (08:00→11:56)
[2018-04-22 08:11] VITALS: BP 119/59
[2018-04-22] MEDS: APIXABAN 5 MG TABLET PO SCH (08:27)
[2018-04-22] MEDS: FAMOTIDINE 20 MG TAB PO SCH (08:27)
[2018-04-22] MEDS ORDERED: ELIQUIS 5 MG (11:25)
[2018-04-22] MEDS ORDERED: MIDODRINE HCL10 MG PO (11:27)
[2018-04-22 11:50] VITALS: BP 105/60
--- NOTE | 2018-04-22 18:11 | Discharge Summary ---
FINAL DIAGNOSIS: Abdominal pain of unclear etiology. SECONDARY DIAGNOSES 1. Per report, right leg deep venous thrombosis with positive lupus anticoagulant antibody. 2. End-stage renal disease on peritoneal dialysis. 3. Chronic hypotension on midodrine. CONSULTANTS 1. Dr. Choudhary, GI. 2. Dr. Nuñez, infectious disease. 3. Dr. Max, hematology. 4. Dr. Valdez, nephrology. PROCEDURES/STUDIES PERFORMED: CT of the abdomen and pelvis, which was done at [facility], was fairly unremarkable. HISTORY: Per H and P. HOSPITAL COURSE: The patient was admitted. Her peritoneal fluid cell count was negative for peritonitis. However, the patient continued to have leukocytosis of about 14, although she is afebrile. A short course of Zosyn was given. The patient gradually felt better. The nausea and vomiting have resolved. The abdominal pain has resolved. Currently tolerating p.o. The patient is ambulating just fine. At one time, EGD was recommended by GI; however, the patient refused. The patient was continued on peritoneal dialysis here. Midodrine was added for chronic hypotension. The patient was also evaluated by hematology. Given the fact that the patient has right leg DVT and positive lupus anticoagulant antibody, she needs lifelong anticoagulation. However, she had a hard time following up with Coumadin clinic. After evaluation by hematology, Eliquis 5 mg p.o. b.i.d. was started. I have updated her PCP about this hospitalization. It took 32 minutes total to discharge this patient today. The patient was seen and examined today. CONDITION ON DISCHARGE: Stable. DISCHARGE MEDICATIONS: Please see medication reconciliation form. REGGIE PERLA M.D. Job#: [id number] cc:HAYDEE WARREN MD
== END 2018-04-22 12:10 | disposition home or self-care (01) | DRG 391 ==
LOC: MED/SURG2 06:50
PROVIDERS: ADMIT Internal Medicine; ATTEND Internal Medicine
PROC: 3E1M39Z Irrigation of Peritoneal Cavity using Dialysate, Percutaneous Approach (ICD-10-PCS; principal; 2018-04-15)
DX: R10.9 Unspecified abdominal pain (principal); N18.6 End stage renal disease; I12.0 Hypertensive chronic kidney disease with stage 5 chronic kidney disease or end stage renal disease; I82.5Z1 Chronic embolism and thrombosis of unspecified deep veins of right distal lower extremity; E87.1 Hypo-osmolality and hyponatremia; N25.81 Secondary hyperparathyroidism of renal origin; Z99.2 Dependence on renal dialysis; I95.89 Other hypotension; R76.0 Raised antibody titer; Z79.01 Long term (current) use of anticoagulants; F17.210 Nicotine dependence, cigarettes, uncomplicated; J44.9 Chronic obstructive pulmonary disease, unspecified; D72.829 Elevated white blood cell count, unspecified; K29.70 Gastritis, unspecified, without bleeding; E83.39 Other disorders of phosphorus metabolism; D63.1 Anemia in chronic kidney disease
CPT/HCPCS: 36415; 74018; 80048; 80076; 83690; 84100; 85014; 85018; 85025; 85610; 85730; 87070; 87205; 89051; 96367; 97139; J1644; J2405; J2543; J3370; J7030; J7040; J7050

== ENCOUNTER 2018-05-19 11:46 | Emergency (ER) | payer MEDICARE ==
[~2018-05-19] VITALS: Ht 170.2 cm; Wt 64.4 kg
[~2018-05-19 11:46] MED LIST changes: +ELIQUIS 5 MG; +MIDODRINE HCL10 MG PO
[2018-05-19] MEDS ORDERED: SODIUM CHLORIDE 0.9% 250ML 250 ML IV ONE (12:00)
[2018-05-19 12:08] LABS: BASOPHILS % 0.3 % (0.0-1.0); EOSINOPHILS # (AUTO) 0.2 (0.0-0.4); EOSINOPHILS % 1.8 % (0.0-6.0); HEMATOCRIT 33.3 % (34.2-44.1); HEMOGLOBIN 11.2 g/dL (12.0-16.0); LYMPHOCYTES # (AUTO) 1.6 (1.0-3.2); LYMPHOCYTES % 15.7 % (18.0-39.1); MEAN CORPUSCULAR HEMOGLOBIN 33.6 pg (28-32); MEAN CORPUSCULAR HGB CONC 33.6 g/dL (31-35); MONOCYTES # (AUTO) 0.7 (0.2-0.8); MONOCYTES % 6.5 % (4.4-11.3); NEUTROPHILS # (AUTO) 7.6 (2.1-6.9); NEUTROPHILS % 75.2 % (38.7-80.0); PLATELET COUNT 274 x10e3/uL (140-360); RED BLOOD COUNT 3.33 x10e6/uL (3.6-5.1); RED CELL DISTRIBUTION WIDTH 15.1 % (11.7-14.4)
[2018-05-19 12:18] LABS: INR 1.1; PROTHROMBIN TIME 13.4 seconds (11.9-14.5)
[2018-05-19 12:19] LABS: PARTIAL THROMBOPLASTIN TIME 33.8 seconds (23.8-35.5)
[2018-05-19 12:26] LABS: ALBUMIN 2.3 g/dL (3.5-5.0); ALBUMIN/GLOBULIN RATIO 0.8 (0.8-2.0); ANION GAP 18.2 mmol/L (8-16); CREATININE, SERUM 8.05 mg/dL (0.57-1.11); POTASSIUM 3.2 mmol/L (3.5-5.1)
[2018-05-19 12:32] LABS: CREATINE KINASE MB 1.3 ng/mL (0-5.0)
--- NOTE | 2018-05-19 12:50 | Diagnostic Imaging Report ---
PROCEDURE: A single AP view of the chest. COMPARISON: 10/14/2017 INDICATIONS: WEAKNESS, LOW BLOOD PRESSURE FINDINGS: Lines/tubes: None. Lungs: The lungs are well inflated and clear. There is no evidence of pneumonia or pulmonary edema. Healed granuloma in right lung base, unchanged Pleura: There is no pleural effusion or pneumothorax. Biapical pleural/parenchymal scarring. Heart and mediastinum: Normal heart size. Calcific atherosclerosis of the thoracic aorta. Multiple surgical clips along the right side of the trachea, unchanged. Bones: No acute bony abnormality. IMPRESSION: 1. No evidence of infection or edema Dictated by: Alvin Marina M.D. on 05/19/2018 at 12:55 Electronically approved by: Alvin Marina M.D. on 05/19/2018 at 12:55
== END 2018-05-19 15:32 | disposition home or self-care (01) ==
LOC: ER 11:46
DX: R11.0 Nausea (principal); R53.1 Weakness; N19 Unspecified kidney failure; Z99.2 Dependence on renal dialysis; J44.9 Chronic obstructive pulmonary disease, unspecified; Z86.718 Personal history of other venous thrombosis and embolism
CPT/HCPCS: 36415; 71045; 80053; 82550; 82553; 83605; 83690; 84484; 85025; 85610; 85730; 93005; 99284; J7050

== ENCOUNTER 2019-04-07 19:37 | Inpatient (IN) | payer MEDICARE ==
[~2019-04-07] VITALS: Ht 170.2 cm; Wt 79.0 kg
--- NOTE | 2019-04-07 22:00 | NUR ---
Received report from Naye SIFUENTES from [facility] for Direct Admit.
--- OUTSIDE RECORDS SUMMARY | 2019-04-07 22:25 | XMS REPORT | Clinical Summary ---
Author Author LUCY [email or web address] Organization [facility] [employer] [facility] Address Unknown Phone Unavailable Care Team Providers Care Supervisor Baking Name Role Phone Lizzeth Luevano PCP Unavailable Oliver Oconnor Unavailable Allergies Comments Active Allergy Reactions Severity Noted Date Myalgia Pravastatin Other (See 10/29/2015 Comments) Medications End Date Status Medication Sig Dispensed Refills Start Date Active metoprolol (LOPRESSOR) 50 Take 50 mg by 0 MG tabletIndications: mouth 2 (two) ESRD (end stage renal times daily. disease) ([facility]) Active sodium bicarbonate 325 MG Take 650 mg 0 tabletIndications: ESRD by mouth 2 (end stage renal disease) (two) times ([facility]) daily. Active furosemide (LASIX) 20 MG Take 20 mg by 0 tabletIndications: ESRD mouth daily. (end stage renal disease) ([facility]) Active omega-3 fatty Take by mouth 0 acids-vitamin E 1,000 mg daily. CapIndications: ESRD (end stage renal disease) ([facility]) Active cholecalciferol, vitamin Take 2,000 0 D3, 2,000 unit Units by TabIndications: ESRD (end mouth daily. stage renal disease) ([facility]) Active albuterol HFA (VENTOLIN Inhale 1 puff 0 HFA) 90 mcg/actuation by mouth via inhalerIndications: ESRD inhaler as (end stage renal disease) needed for ([facility]) Wheezing. Active allopurinol (ZYLOPRIM) Take 100 mg 0 100 MG tabletIndications: by mouth ESRD (end stage renal daily. disease) ([facility]) Active colchicine (COLCRYS) 0.6 Take 0.6 mg 0 mg tabletIndications: by mouth as ESRD (end stage renal needed. disease) ([facility]) Active warfarin (COUMADIN) 7.5 Take 7.5 mg 0 MG tabletIndications: by mouth ESRD (end stage renal daily 5 days disease) ([facility]) of the week . Active warfarin (COUMADIN) 5 MG Take 5 mg by 0 tabletIndications: ESRD mouth daily 2 (end stage renal disease) days out of ([facility]) the week . Active amLODIPine (NORVASC) 10 Take 10 mg by 0 MG tabletIndications: mouth daily. ESRD (end stage renal disease) ([facility]) Active mupirocin (BACTROBAN) 2 % by Nasal 0 nasal route as ointmentIndications: ESRD needed Use (end stage renal disease) one-half of ([facility]) tube in each nostril twice daily for five (5) days. After application, press sides of nose together and gently massage. . Active SODIUM POLYSTYRENE Take by mouth 0 SULFONATE (KIONEX as needed. ORAL)Indications: ESRD (end stage renal disease) ([facility]) Active Problems Problem Noted Date ESRD (end stage renal disease) 11/03/2015 Encounters Care Team Description Date Type Specialty Doris Waters RN 10/23/2018 Abstract Transplant after 04/06/2018 Family History Relation Name Status Comments Mother Social History Date Tobacco Use Types Packs/Day Years Used Current Every Day Smoker 1 50 Alcohol Use Drinks/Week oz/Week Comments Yes occasionally Sex Assigned at Date Recorded Not on file Industry Job Start Date Occupation Not on file Not on file Not on file Travel End Travel History Travel Start No recent travel history available. Last Filed Vital Signs Not on file Plan of Treatment Health Maintenance Due Date Last Done Comments INFLUENZA VACCINE 07/24/2018 Implants Device Identifier Shelf Expiration Date Model / Serial / Lot Implanted Type Area [facility] 06/24/2020 [id number] / / [id number] Catheter Kit,Peritoneal Dialysis Catheter N/A: Abdomen COVIDIEN Curl 62cm - [id number] Dialysis Implanted: Qty: 1 on 11/03/2015 by Measurement OperatorHeber Jacobs MD Results Not on fileafter 04/06/2018 Insurance Payer Benefit Subscriber ID Type Phone Address Plan / [facility] MEDICARE ADV Advance Directives For more information, please contact: [facility] [address] [place] [address] Date Inactivated Comments Code Status Date Activated 11/03/2015 3:07 PM Full Code 11/03/2015 5:48 AM This code status was determined by: Patient
[2019-04-07] MEDS ORDERED: DEXTROSE 50% SYRINGE 50 ML IV PRN (22:45)
--- NOTE | 2019-04-07 23:00 | NUR ---
Received patient from [place] via stretcher. AAOx3, no resp distress. On 2L n/c. Denies taking O2 at home. Amb to bed to chair with assistance. Noted port to LLQ ABD with swelling and tender to touch. Abd rigid. Denies pain at this time. Call light within reach and instructed to call for assistance. Notified Dialysis nurse of patient's arrival.
[2019-04-07] MEDS: ONDANSETRON HCL INJ 2MG/ML 2ML 2 MG/ML VIAL IV PRN (23:10)
[2019-04-07 23:13] VITALS: BP 141/68
[2019-04-07 23:30] VITALS: BP 141/68
[2019-04-08] VITALS (8 sets, daily range): BP systolic 107–142; BP diastolic 64–75
[2019-04-08] MEDS ORDERED: GENTAMICIN IV ONE (00:45)
[2019-04-08] MEDS ORDERED: [UNRECOGNIZED DRUG - OTHER] IV ONE (00:45)
[2019-04-08] MEDS ORDERED: VANCOMYCIN IV ONE (00:45)
[2019-04-08] MEDS ORDERED: [UNRECOGNIZED DRUG - OTHER] IV ONE (00:45)
--- NOTE | 2019-04-08 00:50 | NUR ---
Received orders from dialysis nurse from for vanco 5grams and Gent 200mg for intraperotonial dialysis
[2019-04-08] MEDS ORDERED: VANCOMYCIN 1GM/NS 250 ML 0 ML IV ONE (01:15)
[2019-04-08] MEDS ORDERED: GENTAMICIN 80MG/NS 100 ML 0 ML IV SCH (01:45)
[2019-04-08] MEDS ORDERED: GENTAMICIN SULFATE 40 MG/ML 2 ML VIAL ONE (01:53)
--- NOTE | 2019-04-08 05:06 | NUR ---
Dialysis nurse call Md and notified of vomiting brown fluids during dialysis. Md stated to continue dialysis.
[2019-04-08] MEDS: ONDANSETRON HCL INJ 2MG/ML 2ML 2 MG/ML VIAL IV PRN ×2 (05:07→11:08)
--- NOTE | 2019-04-08 05:30 | NUR ---
Patient requesting to stop dialysis due to vomiting. Paged Dr. Valdez.
--- NOTE | 2019-04-08 05:35 | NUR ---
call center professional MD agreed to d/c dialysis.
[2019-04-08 06:18] LABS: BASOPHILS % 0.1 % (0.0-1.0); HEMATOCRIT 40.1 % (34.2-44.1); HEMOGLOBIN 12.5 g/dL (12.0-16.0); LYMPHOCYTES # (AUTO) 0.5 (1.0-3.2); MEAN CORPUSCULAR HEMOGLOBIN 30.3 pg (28-32); MEAN CORPUSCULAR HGB CONC 31.2 g/dL (31-35); MEAN CORPUSCULAR VOLUME 97.3 fL (81-99); MONOCYTES # (AUTO) 0.6 (0.2-0.8); NEUTROPHILS # (AUTO) 14.6 (2.1-6.9); NEUTROPHILS % 92.3 % (38.7-80.0); PLATELET COUNT 572 x10e3/uL (140-360); RED BLOOD COUNT 4.12 x10e6/uL (3.6-5.1)
[2019-04-08 06:38] LABS: ANION GAP 19.9 mmol/L (8-16); CREATININE, SERUM 9.48 mg/dL (0.57-1.11); POTASSIUM 3.9 mmol/L (3.5-5.1)
--- NOTE | 2019-04-08 07:00 | NUR ---
BEDSIDE SHIFT REPORT RECEIVED FROM NIGHT RN. PT DENIES NEEDS AT THIS TIME.
[2019-04-08] MEDS: INSULIN LISPRO 100 UNIT/1 ML 3ML VIAL SQ SCH ×2 (07:30→11:30)
--- NOTE | 2019-04-08 13:50 | NUR ---
DIALYSIS CALLED FOR PERITONEAL DIALYSIS TODAY.
[2019-04-08] MEDS: ALBUTEROL/IPRATROPIUM 3 ML NEB NEB SCH ×2 (15:00→23:10)
--- NOTE | 2019-04-08 15:44 | Diagnostic Imaging Report ---
Examination: Single AP view of the chest. COMPARISON: None. INDICATION: COPD DISCUSSION: Lines/tubes: None. Lungs: Left lower lobe opacity with obscured hemidiaphragm. Right lung is clear. Pleura: No pleural effusion or pneumothorax. Heart and mediastinum: The heart and the mediastinum are unremarkable. Bones and soft tissues: No acute bony abnormalities. IMPRESSION: 1. Left lower lobe opacity may reflect atelectasis or pneumonia. Signed by: Dr. Gilbert Barnes M.D. on 04/08/2019 3:41 PM
[2019-04-08] MEDS: APIXABAN 5 MG TABLET PO SCH (15:59)
[2019-04-08] MEDS: SEVELAMER CARBONATE 800 MG TAB PO SCH (15:59)
[2019-04-08] MEDS ORDERED: GENTAMICIN SULFATE 40 MG/ML 2 ML VIAL IV ONE (16:30)
[2019-04-08] MEDS ORDERED: INSULIN LISPRO 100 UNIT/1 ML 3ML VIAL SQ SCH (16:30)
[2019-04-08] MEDS: VANCOMYCIN HCL 750 MG VIAL IV ONE (16:50)
--- NOTE | 2019-04-08 22:30 | Consultation ---
DATE OF CONSULTATION: 04/08/2019 Nephrology Consultation REASON FOR CONSULTATION: End-stage renal disease, on CAPD. HISTORY OF PRESENT ILLNESS: Ms. Mclaughlin is a 78-year-old female with the following problem list: 1. End-stage renal disease. 2. Early dementia. 3. History of hypertension. 4. Metabolic bone disease. 5. Anemia of chronic disease. The patient is on peritoneal dialysis. She does 4 exchanges a day. She exchanges are with 1.5% and one exchanges with 2.5%. The patient had not been feeling well for approximately a week to 10 days. Her appetite had been decreased. She presented to the [facility] Emergency Room yesterday with abdominal pain, nausea, and not feeling well. The patient underwent evaluation of her peritoneal dialysis fluid and was found to have high WBC count. She was diagnosed with peritonitis. The patient was transferred to this facility as [facility] does not provide peritoneal dialysis. Yesterday, the patient was in a lot of pain. She was not able to tolerate her peritoneal dialysis treatment in full. She was administered intravenous antibiotics at [facility] Emergency Room and underwent intraperitoneal antibiotic placement and it did well today. She is less nauseated today and feels much better. PAST MEDICAL HISTORY: As above. ALLERGIES: PER ALLERGY LIST. MEDICATIONS: Per medication list. FAMILY HISTORY: Noncontributory. SOCIAL HISTORY: She denied any tobacco, alcohol, illicit or recreational drug use. She lives by herself. She is able to administer her own dialysis treatments regularly; however, she admits to forgetting to put her mask on, on some occasions. The patient has a caregiver, who visits with the patient daily, but does not get involved with her dialysis treatments. PHYSICAL FINDINGS: GENERAL: Alert elderly female, in no acute distress with some mild confusion from time to time and asking repeat questions. VITAL SIGNS: Blood pressure 138/68, heart rate 64 per minute, pulse ox 99%. SHEENT: Fundi not visualized. Conjunctiva anicteric. Head is normocephalic and atraumatic. NECK: Supple. No JVD. No lymphadenopathy. HEART: Normal heart sounds. No additional sounds. ABDOMEN: Soft, nontender. No organomegaly. LUNGS: Bilaterally clear to auscultation. EXTREMITIES: No cyanosis, clubbing, or edema. Dialysis access to peritoneal dialysis catheter exit site and tunnel are intact. LABORATORY FINDINGS: Noted and reviewed. ASSESSMENT AND PLAN: 1. End-stage kidney disease, on CAPD, now with PD peritonitis due to break in technique as she has admitted to forgetting to place her mask on and possibly her hygiene is not perfect. She has long nails that I have warned her about and she stated that she will take care of it. She is clinically improved; however, she will have to be continued on antibiotics for approximately 6 weeks. I have advised to the patient that this break in technique and peritonitis are risk to her continuing dialysis with the peritoneal modality. She states that she cannot stand the sight of blood and that is why she cannot undergo hemodialysis. The patient will receive 4 exchanges with mixed bags 1.5% and 2.5% 2000 mL fill 1 hour and 10-minute dwell. Last day dwell is 2000 mL that will include today 80 mg of gentamicin. 2. PD peritonitis. 3. Disposition. I have discussed my evaluation, assessment and plan of care with the patient and her caregiver, who is at the bedside. All questions were answered to their satisfaction until they had none. MD HAFSA Hill/LOKI /[id number]
[2019-04-09] VITALS (8 sets, daily range): BP systolic 121–159; BP diastolic 60–74
[2019-04-09] MEDS: ONDANSETRON HCL INJ 2MG/ML 2ML 2 MG/ML VIAL IV PRN (00:09)
[2019-04-09 05:49] LABS: BASOPHILS % 0.1 % (0.0-1.0); EOSINOPHILS % 0.1 % (0.0-6.0); HEMATOCRIT 38.3 % (34.2-44.1); HEMOGLOBIN 11.8 g/dL (12.0-16.0); LYMPHOCYTES # (AUTO) 0.5 (1.0-3.2); LYMPHOCYTES % 3.3 % (18.0-39.1); MEAN CORPUSCULAR HEMOGLOBIN 30.3 pg (28-32); MEAN CORPUSCULAR HGB CONC 30.8 g/dL (31-35); MEAN CORPUSCULAR VOLUME 98.2 fL (81-99); MONOCYTES # (AUTO) 0.7 (0.2-0.8); MONOCYTES % 5.1 % (4.4-11.3); NEUTROPHILS % 90.9 % (38.7-80.0); PLATELET COUNT 593 x10e3/uL (140-360); RED CELL DISTRIBUTION WIDTH 14.1 % (11.7-14.4)
[2019-04-09 06:10] LABS: ANION GAP 19.9 mmol/L (8-16); CALCIUM 7.5 mg/dL (8.4-10.2); CREATININE, SERUM 9.15 mg/dL (0.57-1.11); POTASSIUM 3.9 mmol/L (3.5-5.1)
[2019-04-09] MEDS: ALBUTEROL/IPRATROPIUM 3 ML NEB NEB SCH ×4 (07:18→19:33)
[2019-04-09] MEDS: SODIUM BICARBONATE 650 MG TAB PO SCH (09:23)
[2019-04-09] MEDS: SEVELAMER CARBONATE 800 MG TAB PO SCH ×3 (09:23→17:12)
[2019-04-09] MEDS: APIXABAN 5 MG TABLET PO SCH ×2 (09:23→17:12)
--- NOTE | 2019-04-09 10:21 | Diagnostic Imaging Report ---
EXAM: CHEST SINGLE (PORTABLE), AP Portable DATE: 04/09/2019 Time stamp on exam: 9:08 AM INDICATION: Lung opacities COMPARISON: 6 10/29/2018 FINDINGS: LINES/TUBES: Multiple small surgical clips are present in the right lower neck LUNGS: Increased pulmonary vascularity compatible with mild pulmonary vascular congestion appears more prominent compared to the prior study. PLEURA: Left pleural effusion. HEART AND MEDIASTINUM: Normal size and contour. Calcification within the aortic knob. BONES AND SOFT TISSUES: No acute findings. IMPRESSION: Increased pulmonary vascular congestion. Left pleural effusion. Signed by: Dr. Keith Bradshaw DO on 04/09/2019 10:18 AM
[2019-04-09] MEDS ORDERED: LACTULOSE SYRUP 20 GM/30 ML UDC PO SCH (10:30)
[2019-04-09] MEDS ORDERED: BISACODYL 10 MG SUPP PR SCH (10:30)
[2019-04-09] MEDS ORDERED: HEPARIN SOD (PORCINE) 5,000 UNIT/ML VIAL SC SCH (10:45)
[2019-04-09] MEDS ORDERED: HEPARIN SOD (PORCINE) 1000 UNIT/ML SDV IV PRN ×2 (11:00→14:30)
[2019-04-09] MEDS: AMLODIPINE BESYLATE 5 MG TAB PO SCH (11:21)
[2019-04-09] MEDS ORDERED: SODIUM CHLORIDE 0.9% 250ML 250 ML ONE (11:28)
--- NOTE | 2019-04-09 11:50 | Consultation ---
DATE OF CONSULTATION: 04/09/2019 INFECTIOUS DISEASE CONSULTATION REASON FOR CONSULTATION: Peritonitis and peritoneal dialysis. Thank you, Dr. Orozco, for asking me to see this patient. HISTORY OF PRESENT ILLNESS: The patient is a 78-year-old woman, who was admitted through the emergency department and transferred to this facility from [facility] because peritoneal dialysis was not provided there. The patient had presented to the emergency room at [facility] with complaint of feeling unwell with decreased appetite for several days. Two days prior to admission, she developed abdominal pain and nausea. She denies fever. She has end-stage renal disease managed with peritoneal dialysis for three years without prior peritonitis. Patient had peritoneal dialysate fluid analysis at the [facility], which showed WBC 630 with 91.7 % neutrophils but culture was pending at the time of transfer. CT scan of the abdomen and pelvis showed peritoneal dialysis catheter without evidence of bowel perforation, as well as bilateral pleural effusion with subsegmental atelectasis. PAST MEDICAL HISTORY: Hypertension, end-stage renal disease, kidney stones, deep venous thrombosis, gout, and dementia. PAST SURGICAL HISTORY: Bladder suspension and skin cancer excision. ALLERGIES: NO KNOWN DRUG ALLERGIES. MEDICATIONS: The patient received gentamicin 80 mg IV piggyback once and vancomycin 750 mg IV piggyback once. Also, she got intraperitoneal gentamicin and vancomycin at [facility]. IMMUNIZATION: Pneumococcal vaccination status cannot be verified at this time. FAMILY HISTORY: Noncontributory. SOCIAL HISTORY: She smokes a pack of cigarettes a day and she has been smoking for 60 years. No alcohol or recreational drug use. REVIEW OF SYSTEMS: As per history of present illness. The patient feels a little bit better since admission and management. She has chronic baseline cough, which has not changed. The nausea is less. She has not had a bowel movement in several days. The patient complains of decreased ability to ambulate for several days. PHYSICAL EXAMINATION: GENERAL: No acute distress on peritoneal dialysis; hard of hearing. VITAL SIGNS: T-max 97.5, pulse rate 74, respiratory rate 16, blood pressure 142/66, weight 142 pounds. HEENT: Normocephalic. There is no icterus or injection of conjunctivae. There is no ear or nasal discharge. Moist oral mucosa. No pharyngeal erythema or exudate. NECK: Supple. No meningismus. LUNGS: Decreased breath sounds bilaterally. ABDOMEN: Distended with peritoneal fluid, and diffuse tenderness. EXTREMITIES: There is 2+ edema of the left lower extremity. SKIN: There is no acute erythema. ART CLASS MODEL: Awake and alert with decreased hearing acuity. LABORATORY AND DIAGNOSTICS: WBC 14,250, hemoglobin 11.8, platelets 593,000, neutrophils 90.9, lymphocytes 3.3, monocytes 5.1, eosinophils 0.1, and basophils 0.1. Blood glucose 129. IMPRESSION: 1. Peritonitis complicating peritoneal dialysis, present on admission. 2. End-stage renal disease. 3. Deep venous thrombosis. 4. Gout. 5. Early dementia. 6. Ambulatory dysfunction. PLAN: 1. Request peritoneal fluid culture result from [facility]. 2. Switch gentamicin to meropenem 500 mg IV piggyback q.24 hours since the patient appears to have hearing problem. Continue vancomycin 1 g IV piggyback three times a week. Laxative per renal service. 3. Smoking cessation counseling has been provided to the patient. Currently, she declined pharmacologic intervention and she is not ready to quit smoking. 4. Consult Physical Therapy for acute evaluation and management. MD ROSALEE Wright/LOKI /[id number] MTDD
[2019-04-09] MEDS: MEROPENEM 500MG/ NS 50ML 50 ML IV SCH (12:09)
[2019-04-09] MEDS ORDERED: LACTULOSE SYRUP 20 GM/30 ML UDC PO ONE (15:00)
[2019-04-09] MEDS ORDERED: BISACODYL 10 MG SUPP PR ONE (15:00)
--- NOTE | 2019-04-09 16:02 | NUR ---
Nutrition Screen Note RD Recommendation for Physician: -Continue current diet as ordered -Pt refused any nutrition intervention at this time. Plan of Care: RD following, monitoring for tolerance and adequacy Nutrition reason for involvement: Nutrition Risk Trigger MST Primary Diagnose(s): PD peritonitis PMH: 1. End-stage renal disease on PD 2. Early dementia. 3. Hypertension. 4. Metabolic bone disease. 5. Anemia of chronic disease. Ht: 67in Wt: 142lb BMI: 22.2kg/m2 IBW: 135lb RD Assessment: (04/09) Chart reviewed. Labs and meds reviewed. 78yo F, who was admitted for peritonitis complicating peritoneal dialysis. Visited pt in the room. Pt reported poor appetite for several days. Pt stated I get sick if I eat too much. PCT recorded 25-50% meal intake since admission. Pt denied any chewing or swallowing difficulty at this time. RD offered oral nutrition supplements but pt refused. Pt stated I dont want anything right now.Unknown weight loss history. Will continue to monitor and follow. Current Diet: renal diabetic diet Malnutrition Evaluation (04/09/2019) The patient does not meet criteria for a specified degree of malnutrition at this time. Will re-evaluate at follow-up as appropriate. Diet Education Needs Assessment: Diet education indicated, pt is not appropriate at this time. Nutrition Care Level: low Signed: Brielle Buckley, , RD, LD
--- NOTE | 2019-04-09 20:00 | NUR ---
patient up to the bathroom at that time, pulled the call light from the restroom. Patient was found standing next to the toilet holding onto the wall bar. The patient had blood dripping from rectum. She has had frequent bowel movement due to medication given for constipation. The patient was cleaned and moved back to the bed at this time. The patient states she has never had this happen before when asked. The patient is noted to have a hemorrhoid when cleaning. The day nurse Francisco paged the attending at this time. A message was left per day nurse.
[2019-04-10] VITALS (8 sets, daily range): BP systolic 108–142; BP diastolic 53–63
--- NOTE | 2019-04-10 01:04 | NUR ---
patient in bed sleeping, bed alarm on at this time, lights are out,
--- NOTE | 2019-04-10 03:59 | NUR ---
patient up to the restroom at this time, no pain, IV intact,
[2019-04-10 05:41] LABS: BASOPHILS % 0.1 % (0.0-1.0); EOSINOPHILS # (AUTO) 0.1 (0.0-0.4); EOSINOPHILS % 0.6 % (0.0-6.0); HEMATOCRIT 34.6 % (34.2-44.1); HEMOGLOBIN 10.7 g/dL (12.0-16.0); LYMPHOCYTES # (AUTO) 0.6 (1.0-3.2); LYMPHOCYTES % 4.8 % (18.0-39.1); MEAN CORPUSCULAR HEMOGLOBIN 30.6 pg (28-32); MEAN CORPUSCULAR HGB CONC 30.9 g/dL (31-35); MEAN CORPUSCULAR VOLUME 98.9 fL (81-99); MONOCYTES # (AUTO) 0.8 (0.2-0.8); MONOCYTES % 7.2 % (4.4-11.3); NEUTROPHILS % 86.6 % (38.7-80.0); PLATELET COUNT 495 x10e3/uL (140-360); RED CELL DISTRIBUTION WIDTH 14.3 % (11.7-14.4)
[2019-04-10 05:52] LABS: ANION GAP 16.6 mmol/L (8-16); CREATININE, SERUM 9.09 mg/dL (0.57-1.11); POTASSIUM 3.6 mmol/L (3.5-5.1)
[2019-04-10 06:13] LABS: CALCIUM 6.9 mg/dL (8.4-10.2)
[2019-04-10] MEDS: ALBUTEROL/IPRATROPIUM 3 ML NEB NEB SCH ×4 (07:00→19:40)
--- NOTE | 2019-04-10 07:00 | NUR ---
road production general manager physician called back made aware of the critical calcium 6.9. They will see the patient this morning. no new orders received. Day nurse made aware
[2019-04-10] MEDS: SEVELAMER CARBONATE 800 MG TAB PO SCH ×3 (09:03→17:05)
[2019-04-10] MEDS: AMLODIPINE BESYLATE 5 MG TAB PO SCH (09:03)
[2019-04-10] MEDS: MEROPENEM 500MG/ NS 50ML 50 ML IV SCH ×2 (09:03→10:31)
[2019-04-10] MEDS: APIXABAN 5 MG TABLET PO SCH ×2 (09:03→17:05)
[2019-04-10] MEDS: SODIUM BICARBONATE 650 MG TAB PO SCH (09:06)
[2019-04-10] MEDS: ONDANSETRON HCL INJ 2MG/ML 2ML 2 MG/ML VIAL IV PRN (12:37)
[2019-04-10] MEDS ORDERED: MORPHINE SULFATE 2 MG/ML SYR 1ML IV PRN (12:45)
[2019-04-10] MEDS: MORPHINE SULFATE INJ 4 MG/ML INJ 1ML IV PRN (13:02)
[2019-04-10] MEDS ORDERED: VANCOMYCIN 1GM/NS 250 ML 250 ML IV ONE (14:00)
--- NOTE | 2019-04-10 17:05 | NUR ---
Dialysis nurse here to initiate peritoneal dialysis treatment.
[2019-04-10] MEDS ORDERED: HEPARIN SOD (PORCINE) 1000 UNIT/ML SDV IV PRN (17:15)
--- NOTE | 2019-04-10 22:47 | NUR ---
Report received from Francisco SIFUENTES. Patient was placed on ca dialysis at 5pm per day nurse. She stated that the dialysis nurse informed her to hit stop and start if the machine if beeping. The machine was beeping every 10 minutes or sooner. The dialysis machine showed dwell 1 of 5. The patient then began to complain on abdominal pain. Dialysis nurse was paged at this time. Once I received a call from the dialysis nurse I went to the room to explain what was showing on the dialysis machine. The screen was now on dwell 2 of 5 time remaining 1hr 14 minutes out of 1hr 30 minutes. The dialysis nurse asked about the amount of drainage in the bags below the machine. There was very little in there at this time. The patients abdomen was distended and hard at this time. The patient was complaining of pain as well in the abdominal area. Instructed to make sure there were not kinks in the lines. No kinks were found at this time. The patient was still complaining of abdominal pain. The road conductor dialysis nurse stated he would call back once he spoke with the physician (Dr. Valdez). myself and the charge nurse Yoli waited in the room with the patient. Received a call back from the dialysis nurse around [phone] stating that he spoke with Dr. Valdez. Dr. Valdez agreed to stop dialysis. Nurse walked charge nurse through the process. The machine was stopped in which the screen showed yellow with the time remaining. There was not very much drainage in the bags below the machine at this time. Then instructed to start the machine again and hit the stop button and hold it down for 5 to 10 seconds. Next instruction was to hit the STAT drain button. Told to watch the output volume. The machine may stop at 1500 ml but not to let it go past 1900 ml and he would be on his was to check the machine and patient. The patient began to get relief. A call was placed to Dr. Valdez's office to inform him of what was going on with the patient. The on-call physician called back and was informed that dialysis nurse spoke to Dr. Valdez who agreed a stat drain was necessary at this time.
--- NOTE | 2019-04-10 23:55 | NUR ---
patients dialysis machine has pulled off 1500. The machine showed dwell 3 of 5 filling up. The machine was stopped and the verification lead dialysis nurse was contacted. Ivan the verification lead nurse called back he stated to stop the process and turn the machine completely off from the back and clamp the tubing near the patient. This was completed and Ivan stated he would be here in 2 to 3 hrs to evaluate the patient.
[2019-04-11] VITALS (7 sets, daily range): BP systolic 110–138; BP diastolic 51–62
--- NOTE | 2019-04-11 03:13 | NUR ---
dialysis nurse pb here to take the patient off the dialysis machine.
--- NOTE | 2019-04-11 04:41 | NUR ---
patient in bed awake, no complaints of pain at this time. IV intact
[2019-04-11] MEDS: ALBUTEROL/IPRATROPIUM 3 ML NEB NEB SCH ×4 (06:45→19:30)
--- NOTE | 2019-04-11 07:10 | NUR ---
RCD PT AT BED PT IS ALERT AND ORIENTED PT RESTING ON BED NO SIGNS OF ANY DISTRESS NOTED IV PATENT BED LOW AND LOCKED CALL LIGHT IN REACH
[2019-04-11] MEDS: SEVELAMER CARBONATE 800 MG TAB PO SCH ×3 (08:00→17:00)
[2019-04-11] MEDS: AMLODIPINE BESYLATE 5 MG TAB PO SCH (09:00)
[2019-04-11] MEDS: MEROPENEM 500MG/ NS 50ML 50 ML IV SCH (09:00)
[2019-04-11] MEDS: SODIUM BICARBONATE 650 MG TAB PO SCH (09:00)
[2019-04-11] MEDS: APIXABAN 5 MG TABLET PO SCH ×2 (09:00→17:00)
[2019-04-11 09:15] LABS: INR 1.58; PROTHROMBIN TIME 19.5 seconds (11.9-14.5)
[2019-04-11] MEDS ORDERED: LIDOCAINE HCL 1% LOCAL INJ 20 ML VIAL ONE (13:54)
--- NOTE | 2019-04-11 15:00 | NUR ---
PT BACK AFTER PROCEDURE PT IS ALERT AND ORIENTED VITALS CHECKED NO SIGNS OF BLEEDING ON THE RT IJ CATHETER BED LOW AND LOCKED CALL LIGHT IN REACH NOTIFIED DIALYSIS NURSE FOR DIALYSIS
--- NOTE | 2019-04-11 16:05 | Diagnostic Imaging Report ---
Exam: Ultrasound and fluoroscopic guidance for placement of a temporary right IJ hemodialysis catheter. History: Patient with end-stage renal disease who normally gets dialysis via a peritoneal catheter. Temporary IJ hemodialysis catheter is requested. Comparison: None available Findings: Consent was obtained and saved to the medical record. Formal timeout was accomplished. Preliminary ultrasound evaluation of the right IJ shows patency with normal compressibility. Image was saved to the medical record. Sterile preparation with full barrier sterile technique. Local anesthesia with 1% Xylocaine was administered. Utilizing ultrasound guidance a 21-gauge skinny needle was placed into the internal jugular vein. This was followed by a 0.018 " wire and then a micropuncture sheath. Through the micropuncture sheath a 0.035 " Amplatz superstiff wire was advanced centrally under fluoroscopic guidance. Serial dilatation was accomplished. A 13 Bur[place]ian 15 cm long temporary hemodialysis catheter was then advanced with fluoroscopic guidance. Tip localized to the SVC. This was secured to the skin with 3-0 Ethilon. Line is okay for immediate use. Fluoroscopy time: 0.1 minutes Total dose: 0.610 mGy Impression: 1. Successful placement of a temporary right hemodialysis catheter utilizing ultrasound for vascular access and fluoroscopy for placement. 2. The line is okay for immediate use. Signed by: Dr. Keith Bradshaw DO on 04/11/2019 4:02 PM
[2019-04-11] MEDS ORDERED: SODIUM CHLORIDE 0.9% 1000ML 2,000 ML IV PRN (16:45)
[2019-04-11] MEDS ORDERED: HEPARIN SOD (PORCINE) 1000 UNIT/ML SDV IV PRN (16:45)
[2019-04-11] MEDS ORDERED: SODIUM CHLORIDE 0.9% 250ML 500 ML IV PRN (16:45)
--- NOTE | 2019-04-11 19:16 | NUR ---
PT ON DIALYSIS BED SIDE REPORT GIVEN TO ONCOMING NURSE
[2019-04-11] MEDS: MORPHINE SULFATE INJ 4 MG/ML INJ 1ML IV PRN (23:32)
--- NOTE | 2019-04-11 23:49 | NUR ---
patient in the semi pavon position, bed in low and locked position, patient had complaints of pain was given IV morphine, IJ (HD) in tact. Talked with the patient about her process of manual dialysis at home. light dimmed and tv on
[2019-04-12] VITALS (8 sets, daily range): BP systolic 106–145; BP diastolic 51–76
[2019-04-12 06:10] LABS: BASOPHILS % 0.3 % (0.0-1.0); EOSINOPHILS # (AUTO) 0.1 (0.0-0.4); HEMATOCRIT 33.9 % (34.2-44.1); HEMOGLOBIN 10.3 g/dL (12.0-16.0); LYMPHOCYTES # (AUTO) 0.7 (1.0-3.2); LYMPHOCYTES % 8.9 % (18.0-39.1); MEAN CORPUSCULAR HEMOGLOBIN 30.1 pg (28-32); MEAN CORPUSCULAR HGB CONC 30.4 g/dL (31-35); MEAN CORPUSCULAR VOLUME 99.1 fL (81-99); MONOCYTES # (AUTO) 0.8 (0.2-0.8); MONOCYTES % 9.5 % (4.4-11.3); NEUTROPHILS # (AUTO) 6.3 (2.1-6.9); NEUTROPHILS % 79.5 % (38.7-80.0); PLATELET COUNT 366 x10e3/uL (140-360); RED BLOOD COUNT 3.42 x10e6/uL (3.6-5.1); RED CELL DISTRIBUTION WIDTH 14.4 % (11.7-14.4)
[2019-04-12 06:32] LABS: ANION GAP 15.1 mmol/L (8-16); CREATININE, SERUM 7.28 mg/dL (0.57-1.11); POTASSIUM 4.1 mmol/L (3.5-5.1)
[2019-04-12 06:36] LABS: CALCIUM 6.5 mg/dL (8.4-10.2)
--- NOTE | 2019-04-12 07:14 | NUR ---
PT LYING IN BED SIDE RESP EVEN AND UNLABORED AT THIS TIME, NO DISTRESS NOTED, NO C/O PAIN WHEN ASKED, CALL LIGHT IN REACH.
--- NOTE | 2019-04-12 07:19 | NUR ---
report and walking rounds Daniel RN
[2019-04-12] MEDS: ALBUTEROL/IPRATROPIUM 3 ML NEB NEB SCH ×4 (07:36→20:45)
[2019-04-12] MEDS ORDERED: CALCIUM GLUCONATE 10% INJ 4.65 MEQ in SODIUM CHLORIDE 0.9% 50ML 50 ML IV ONE (08:45)
[2019-04-12] MEDS: AMLODIPINE BESYLATE 5 MG TAB PO SCH (08:56)
[2019-04-12] MEDS: APIXABAN 5 MG TABLET PO SCH (08:56)
[2019-04-12] MEDS: SEVELAMER CARBONATE 800 MG TAB PO SCH (08:57)
[2019-04-12] MEDS: MEROPENEM 500MG/ NS 50ML 50 ML IV SCH (09:11)
[2019-04-12] MEDS: SODIUM BICARBONATE 650 MG TAB PO SCH (09:43)
[2019-04-12] MEDS: ONDANSETRON HCL 4 MG ORAL DISINTEGRATING TAB PO PRN (11:50)
[2019-04-12] MEDS: MORPHINE SULFATE INJ 4 MG/ML INJ 1ML IV PRN (12:22)
[2019-04-12] MEDS ORDERED: PROMETHAZINE 25MG/ NS 50ML (IV) IV PRN (12:45)
[2019-04-12] MEDS ORDERED: SIMETHICONE 40 MG/0.6 ML BTL PO ONE (12:45)
[2019-04-12] MEDS ORDERED: PROMETHAZINE 25MG/ NS 50ML (IV) IV ONE (12:45)
[2019-04-12] MEDS: CALCIUM CARBONATE 500 MG CHEWABLE TABS PO SCH ×2 (12:58→21:15)
[2019-04-12] MEDS ORDERED: VANCOMYCIN 1GM/NS 250 ML 250 ML IV ONE (14:15)
--- NOTE | 2019-04-12 14:38 | Diagnostic Imaging Report ---
EXAMINATION: CT of the abdomen and pelvis without contrast. TECHNIQUE: Spiral CT images of the abdomen and pelvis were performed from the lung bases to the lesser trochanters. No intravenous contrast was given per referring physician request. Coronal and sagittal reformatted images were obtained. COMPARISON: CT abdomen and pelvis 10/14/2017 CLINICAL HISTORY:Peritoneal dialysis catheter dysfunction DISCUSSION: ABSENCE OF INTRAVENOUS CONTRAST DECREASES SENSITIVITY FOR DETECTION OF FOCAL LESIONS AND VASCULAR PATHOLOGY. ABDOMEN/PELVIS: LOWER THORAX: Moderate bilateral pleural effusions with passive atelectasis of the lower lobes. Anterior right lower lobe calcified granuloma again noted. Filling defects in multiple bilateral lower lobe segmental bronchi. HEPATOBILIARY:No focal hepatic lesion or intrahepatic biliary ductal dilatation. Small calculus in the dependent portion of the gallbladder. SPLEEN: No splenomegaly. PANCREAS: Atrophic. No focal mass or ductal dilatation. ADRENALS: No nodules. KIDNEYS/URETERS:Multiple bilateral exophytic renal cysts, average internal attenuation less than 20 Hounsfield units, similar to that noted on prior. Kidneys are atrophic. No hydronephrosis or calculus. PELVIC ORGANS/BLADDER: The bladder is normal. PERITONEUM/RETROPERITONEUM: Moderate small volume ascites (5-10 Hounsfield units in attenuation). Small focus of pneumoperitoneum along hepatic segment 8, presumably peritoneal dialysis related. LYMPH NODES: No pelvic sidewall, retroperitoneal, or mesenteric lymphadenopathy within limitations of noncontrast examination. VESSELS: Limited evaluation without intravenous contrast. Atherosclerotic calcification of the abdominal aorta, branch vessels, and iliac arterial systems without aneurysmal dilatation. GI TRACT: The large bowel shows no evidence of distention or wall thickening. Innumerable sigmoid diverticula without wall thickening or adjacent inflammatory change. The appendix is poorly visualized. No right lower quadrant inflammation. The stomach is collapsed with prominent rugal folds. No small bowel dilatation to suggest obstruction. BONES AND SOFT TISSUES: Diffuse anasarca. Peritoneal dialysis catheter enters the skin of the left lower quadrant, traverses the superficial-subcutaneous fat, and enters the peritoneal cavity just to the right of midline inferior to the umbilicus. The catheter is intact and extends into the deep pelvis, coiling just above the bladder dome. No acute angulation/kink of the catheter material. Overall appearance is similar to 10/14/2017. No acute osseous abnormalities. Multilevel degenerative disc changes and facet arthropathy of the lumbar spine. IMPRESSION: Peritoneal dialysis catheter appears similar in course to the examination 10/14/2017, without evidence of discontinuity or abrupt angulation. Punctate focus of pneumoperitoneum in the upper abdomen is presumably dialysis related. Anasarca, moderate ascites, and moderate bilateral pleural effusions in keeping with volume overload. Bilateral lower lobe pulmonary consolidations, combination of atelectasis and aspiration. Cholelithiasis. Sigmoid diverticulosis without findings of diverticulitis. Signed by: Dr. Bob Ghosh M.D. on 04/12/2019 2:34 PM
--- NOTE | 2019-04-12 15:38 | Consultation ---
DATE OF CONSULTATION: 04/12/2019 ADDITIONAL REFERRING PHYSICIAN: Dr. Viktoria Valdez. HISTORY OF PRESENT ILLNESS: The patient is a 78-year-old female with history of end-stage renal disease, currently on peritoneal dialysis, who has complaints of epigastric abdominal pain with nausea. The patient says she has had symptoms for about two weeks. She presumably has peritonitis secondary to peritoneal dialysis catheter. Request is made for removal of peritoneal dialysis catheter. The patient has normal bowel function. She had not been having pain prior to two weeks ago. PAST MEDICAL HISTORY: Significant for end-stage renal disease, lupus, deep venous thrombosis in the right leg, hypertension. PAST SURGICAL HISTORY: Only surgery was a bladder suspension and placement of dialysis catheter. ALLERGIES: SHE HAS NO KNOWN DRUG ALLERGIES. MEDICATIONS: Listed in the chart. FAMILY HISTORY: Noncontributory. SOCIAL HISTORY: The patient is smoker. She does not drink alcohol. REVIEW OF SYSTEMS: Significant for cough. She has not had any definite fever. PHYSICAL EXAMINATION: GENERAL: The patient is awake and alert, in no distress. VITAL SIGNS: Normal. She is afebrile. HEENT: There is no scleral icterus. NECK: Has no masses. LUNGS: Equal breath sounds, they are clear bilaterally. CARDIAC: Regular rate and rhythm with no murmur. ABDOMEN: Tender in the epigastrium. There is no definite sign of peritonitis. There is a dialysis catheter from the left side of the abdomen. There was no organomegaly. EXTREMITIES: Slight edema. NEUROLOGIC: Grossly intact. LAB TESTS: The white blood cell count is normal today, it was 15.8 on admission. Hemoglobin and hematocrit are normal. Chemistries reveal elevated BUN and creatinine consistent with the renal failure. ASSESSMENT: A 78-year-old female with presumably infected dialysis catheter. PLAN: Removal of the catheter to be done tomorrow. Procedure was explained to the patient including risks, benefits, and alternatives. She understands. She has had the opportunity to ask questions. Thank you for asking me to see Ms. Mclaughlin. MD SAGE Ardon/LOKI /[id number]
--- NOTE | 2019-04-12 17:34 | NUR ---
Call and spoke with Kaleb at [facility] and informed that patient needs to be done first thing in the morning before surgery
--- NOTE | 2019-04-12 19:33 | NUR ---
report given to oncoming nurse, pt stable at this time.
--- NOTE | 2019-04-12 21:30 | NUR ---
PATIENT IN STABLE CONDITION, NO RESPIRATORY DISTRESS NOTED. PATIENT VOICED THAT SHE IS NOT IN ANY PAIN ANYMORE AND THAT SHE WAS GLAD TO FINALLY GET SOME REST. THE PATIENT WAS ALSO NOTIFIED AND VOICED UNDERSTANDING OF NPO AFTER MIDNIGHT. BED IS IN THE LOWEST POSITION AND LOCKED, CALL LIGHT WITHIN EASY REACH, WILL CONTINUE TO MONITOR.
[2019-04-13] VITALS (19 sets, daily range): BP systolic 92–151; BP diastolic 31–78
[2019-04-13] MEDS: ALBUTEROL/IPRATROPIUM 3 ML NEB NEB SCH ×4 (07:35→19:10)
[2019-04-13] MEDS: MORPHINE SULFATE INJ 4 MG/ML INJ 1ML IV PRN (07:40)
--- NOTE | 2019-04-13 07:40 | NUR ---
Patient complaining of intense pain to epigastric area. Patient is writhing and kicking. Patient stating, "I'm going to . Don't leave me." Reassured patient. Made her comfortable and administered pain medication per the eMAR. Patient states pain is 8/10. Will continue to monitor.
--- NOTE | 2019-04-13 08:05 | NUR ---
Patient's saturation is in the 80's, lung sounds exhibit crackles, noticeable phlegm and gurgling in throat. Called Dr. Valdez regarding dialysis. He said that he gave the order yesterday for treatment today. Spoke with [facility] and they said they are sending another nurse to complete her dialysis this morning.
--- NOTE | 2019-04-13 08:30 | NUR ---
Ivan with [facility] here to initiate hemodialysis.
[2019-04-13] MEDS: CALCIUM CARBONATE 500 MG CHEWABLE TABS PO SCH ×3 (08:55→21:00)
[2019-04-13] MEDS: AMLODIPINE BESYLATE 5 MG TAB PO SCH (08:55)
[2019-04-13] MEDS: CALCITRIOL 0.25 MCG CAP PO SCH (08:55)
--- NOTE | 2019-04-13 09:12 | Diagnostic Imaging Report ---
EXAM: CHEST SINGLE (PORTABLE), AP Portable DATE: 04/13/2019 Time stamp on exam: 8:50 AM INDICATION: Increased shortness of breath COMPARISON: 04/09/2019 FINDINGS: LINES/TUBES: Right IJ temporary hemodialysis catheter with its tip overlying the distal SVC. LUNGS: Increasing pulmonary edema. PLEURA: Increasing bilateral pleural effusions. HEART AND MEDIASTINUM: Cardiomegaly persists. BONES AND SOFT TISSUES: No acute findings. IMPRESSION: Increasing pulmonary edema with bilateral effusions. Signed by: Dr. Keith Bradshaw DO on 04/13/2019 9:08 AM
[2019-04-13] MEDS ORDERED: KETOROLAC TROMETHAMINE 30 MG/ML VIAL IV ONE (10:00)
[2019-04-13] MEDS: MEROPENEM 500MG/ NS 50ML 50 ML IV SCH (10:02)
[2019-04-13] MEDS ORDERED: SODIUM CHLORIDE 0.9% 250ML 500 ML IV PRN (10:15)
[2019-04-13] MEDS ORDERED: HEPARIN SOD (PORCINE) 1000 UNIT/ML SDV IV PRN (10:15)
[2019-04-13] MEDS ORDERED: SODIUM CHLORIDE 0.9% 1000ML 2,000 ML IV PRN (10:15)
[2019-04-13] MEDS ORDERED: BACITRACIN 50,000 UNIT VIAL ONE ×2 (13:08→16:48)
[2019-04-13] MEDS ORDERED: HEPARIN SOD (PORCINE) 1000 UNIT/ML SDV ONE (13:08)
[2019-04-13] MEDS ORDERED: SODIUM CHLORIDE 0.9% 50ML 100 ML ONE (13:10)
[2019-04-13 13:40] LABS: ANION GAP 15.9 mmol/L (8-16); CALCIUM 7.6 mg/dL (8.4-10.2); CREATININE, SERUM 4.29 mg/dL (0.57-1.11); POTASSIUM 3.9 mmol/L (3.5-5.1)
--- NOTE | 2019-04-13 13:41 | NUR ---
Patient taken down to OR at this time. Patient is awake but drowsy. No signs of distress. No pain at this time.
[2019-04-13] MEDS ORDERED: SODIUM CHLORIDE 0.9% 500ML 500 ML ONE (13:50)
[2019-04-13] MEDS ORDERED: ATROPINE SULFATE 0.1 MG/ML 10ML SYR ONE (14:58)
[2019-04-13] MEDS ORDERED: MIDAZOLAM HCL 2 MG/2 ML VIAL IV STA ×2 (15:01→16:34)
[2019-04-13] MEDS ORDERED: MIDAZOLAM HCL 2 MG/2 ML VIAL ONE ×2 (15:01→17:47)
--- NOTE | 2019-04-13 15:10 | NUR ---
notified dr wilson of new consult and also that heart rhythm appears to be 3rd degree heart block. picture sent to md, he states to start dopamine drip and atropine prn. also to consult dr. perez. call placed to dr. perez.
[2019-04-13] MEDS ORDERED: ATROPINE SULFATE 1 MG/ML VIAL IV ONE ×2 (15:15)
[2019-04-13] MEDS ORDERED: ATROPINE SULFATE 1 MG/ML VIAL IV PRN (15:30)
--- NOTE | 2019-04-13 15:30 | NUR ---
spoke to dr. arellano about need to use dialysis line for central venous access for pressors, he orders for a central line and to change to levophed. dr. alba rounds, states please continue dopamine instead until pacemaker is placed.
[2019-04-13] MEDS ORDERED: NOREPINEPHRINE 8 MG/D5W 250 ML 250 ML IV PRN (15:45)
[2019-04-13 15:52] LABS: ANION GAP 16.2 mmol/L (8-16); CREATININE, SERUM 5.47 mg/dL (0.57-1.11); POTASSIUM 4.2 mmol/L (3.5-5.1)
[2019-04-13 15:56] LABS: CALCIUM 6.9 mg/dL (8.4-10.2)
--- NOTE | 2019-04-13 16:06 | Diagnostic Imaging Report ---
EXAM: CHEST SINGLE (PORTABLE), AP Portable DATE: 04/13/2019 Time stamp on exam: 3:21 PM INDICATION: Intubation COMPARISON: Study performed earlier today FINDINGS: LINES/TUBES: Endotracheal tube is in place which is in good position. Right IJ non-tunneled hemodialysis catheter is present. LUNGS: Worsening pulmonary edema. PLEURA: No effusions or pneumothorax. HEART AND MEDIASTINUM: Normal size and contour. BONES AND SOFT TISSUES: No acute findings. IMPRESSION: 1. Endotracheal tube appropriate in location. 2. Worsening pulmonary edema. Signed by: Dr. Keith Bradshaw DO on 04/13/2019 4:02 PM
[2019-04-13] MEDS ORDERED: PANTOPRAZOLE 40 MG 10ML VIAL IV SCH (16:45)
[2019-04-13] MEDS ORDERED: FENTANYL CITRATE/PF 100MCG/2 ML INJ ONE (16:47)
[2019-04-13] MEDS ORDERED: LIDOCAINE HCL 2% LOCAL 20 ML VIAL ONE ×2 (16:48→18:06)
[2019-04-13] MEDS ORDERED: SODIUM CHLORIDE 0.9% 1000ML 2,000 ML ONE (16:48)
--- NOTE | 2019-04-13 16:56 | NUR ---
trialysis line transfer done by dr villa, cxr ordered
--- NOTE | 2019-04-13 16:57 | NUR ---
notified fresenious of need for hd in am
--- NOTE | 2019-04-13 17:09 | Diagnostic Imaging Report ---
Exam: Exchange of a double-lumen temporary right IJ hemodialysis catheter for a triple-lumen temporary hemodialysis catheter. History: Patient with end-stage renal disease who needs central line access in addition to hemodialysis access. Comparison: None available Findings: The previously placed double lumen 11.5 Divehi right IJ temporary hemodialysis catheter was exchanged over a 0.035 " Amplatz wire for a new 13 Divehi Bard Trialysis triple-lumen temporary hemodialysis catheter 15 cm long. The catheter was secured to the skin with 3-0 Ethilon. Each lumen was packed with 1000 units of heparin. Line is okay for immediate use. Chest x-ray following placement to confirm location was ordered. Impression: Successful exchange of a double-lumen temporary hemodialysis catheter for a triple-lumen Bard Trialysis catheter. Signed by: Dr. Keith Bradshaw DO on 04/13/2019 5:06 PM
[2019-04-13 17:12] LABS: ABG PCO2 39 mmHg (41-51); ABG PH 7.37 (7.31-7.41); ABG PO2 62 mmHg (80-105)
[2019-04-13 17:13] LABS: ABG HCO3 22 mmol/L (23-28)
[2019-04-13] MEDS ORDERED: VANCOMYCIN 1GM/NS 250 ML 250 ML IV ONE (17:30)
[2019-04-13] MEDS ORDERED: PROPOFOL IV EMULSION 10 MG/ML 20 ML VIAL ONE (17:30)
[2019-04-13] MEDS ORDERED: EPHEDRINE SULFATE INJ 50 MG/10 ML SYR ONE (17:30)
[2019-04-13] MEDS ORDERED: SEVOFLURANE INHAL SOLN 250 ML PEN BTL ONE (17:30)
[2019-04-13] MEDS ORDERED: LIDOCAINE HCL 2% LOCAL INJ 5 ML SDV VIAL INJ ONE (17:30)
--- NOTE | 2019-04-13 17:47 | NUR ---
pt transferred to process laboratory specialist via bed in critical condition for temporary or permanent pacemaker placement.
--- NOTE | 2019-04-13 17:56 | Diagnostic Imaging Report ---
EXAMINATION: CHEST XRAY LINE PLACEMENT COMPARISON: Chest x-ray 1521 hours INDICATION: Central line placement ^trialysis DISCUSSION: Frontal view of the chest obtained at 1717 hours. HEART AND MEDIASTINUM: Stable mild cardiomegaly LINES: Right IJ triple-lumen catheter terminates in the SVC. Double-lumen catheter has been removed. Endotracheal tube terminates 6 to 7 cm above the lisandra. LUNGS: Bilateral pleural effusions and bibasilar atelectasis. There has been clearing of the upper lung zones. PLEURA: No pneumothorax BONES AND SOFT TISSUES: No focal osseous lesion. Surgical clips in the lower right neck are stable. IMPRESSION: Support devices as described above. No pneumothorax. Bilateral pleural effusions and bibasilar atelectasis. Signed by: Dr. Indigo Kerr MD on 04/13/2019 5:52 PM
[2019-04-13] MEDS ORDERED: CALCIUM GLUCONATE 10% INJ 4.65 MEQ in SODIUM CHLORIDE 0.9% 100 ML IV ONE (18:00)
--- NOTE | 2019-04-13 19:39 | Diagnostic Imaging Report ---
EXAMINATION: CHEST XRAY POST PROCEDURE COMPARISON: Chest x-ray 1713 hours INDICATION: Pacemaker placement ^R/O Pneumothorax DISCUSSION: Frontal view of the chest obtained at 1905 hours. HEART AND MEDIASTINUM: The heart is poorly visualized due to bilateral pleural effusions and atelectasis LINES: Endotracheal tube terminates 5 to 6 cm above the lisandra. Right IJ triple-lumen catheter terminates in the SVC. Single lead pacemaker terminates in the right ventricle. Battery pack is in the upper left chest wall. LUNGS/PLEURA: Diffuse pulmonary vascular congestion. Bilateral pleural effusions and bibasilar atelectasis. No pneumothorax. BONES AND SOFT TISSUES: No focal osseous lesion. Clips in the lower neck are stable. IMPRESSION: AICD lead terminates in the right ventricle without pneumothorax. Pulmonary vascular congestion with bilateral pleural effusions and atelectasis. Endotracheal tube as described above. Signed by: Dr. Indigo Kerr MD on 04/13/2019 7:36 PM
[2019-04-13] MEDS: MIDAZOLAM HCL 2 MG/2 ML VIAL IV PRN (21:21)
--- NOTE | 2019-04-13 23:10 | Consultation ---
DATE OF CONSULTATION: 04/13/2019 Pulmonary Consultation The patient of Dr. Viktoria Valdez, , Dr. Granger, Dr. Gaines, and Dr. Orozco. HISTORY OF PRESENT ILLNESS: Unfortunate 78-year-old woman with a history of end-stage renal disease, lupus anticoagulation, lupus erythematosus, on chronic peritoneal dialysis, catheter became infected with cloudy drainage and she was admitted for antibiotic therapy. Peritoneal catheter was to be changed today, but while the patient was being adequately ventilated with LMA mask, she became increasingly bradycardic and arrested. CPR and epinephrine were administered according to ACLS protocol and she was successfully resuscitated and intubated. She has persistent heart block. This was discussed with Dr. Viktoria Valdez and Dr. Gaines as well as Dr. Jara. Plan is to proceed with pacemaker catheter this evening. We will maintain her on dopamine until that has been accomplished. HOME MEDICATIONS: Have included albuterol, allopurinol, amlodipine, Lasix, metoprolol, vitamin D, midodrine, fish oil, Kionex, Eliquis, sevelamer, and sodium bicarb. PHYSICAL EXAMINATION: VITAL SIGNS: Temperature 96.5, pulse 61, respirations 19, blood pressure 100/70. GENERAL: Frail, white female awakening, currently intubated on mechanical ventilator support. Dialysis catheter is noted. Hemodialysis is noted in the right internal jugular. Peritoneal catheter is noted. LUNGS: Essentially clear anteriorly. HEART: Regular rhythm. ABDOMEN: Catheters in place. Moderate ascites. EXTREMITIES: Nonedematous. IMAGING: Chest x-ray reveals bilateral pleural effusions. PLAN: Plan is to proceed with pacemaker today. Continue mechanical ventilator support. Consider thoracentesis in the future. Moderate dose anticoagulation pending placement of lines. Dopamine until pacemaker wire has been implanted to maintain heart rate prophylactic Protonix. Spoke with Dr. Valdez and caregiver in the ICU. Bob Tamayo MD DS/MODL /[id number]
[2019-04-14] VITALS (13 sets, daily range): BP systolic 14–172; BP diastolic 33–66
[2019-04-14] MEDS: HEPARIN SOD (PORCINE) 5,000 UNIT/ML VIAL SC SCH ×3 (00:13→20:49)
--- NOTE | 2019-04-14 00:40 | Consultation ---
DATE OF CONSULTATION: 04/13/2019 Cardiology Consultation REASON FOR CONSULTATION: Third-degree AV block. CONSULTING PHYSICIAN: Blaze Cristina, Interventional Cardiology. HISTORY OF PRESENT ILLNESS: Ms. Mclaughlin is a 78-year-old woman with a history of early dementia, hypertension, anemia of chronic disease, and end-stage renal disease on peritoneal dialysis, who presents with peritonitis, for which she has been receiving antibiotics. She was scheduled for a catheter exchange today after anesthesia was provided. The patient had asystole cardiac arrest requiring approximately 6 minutes of CPR and epinephrine with return of spontaneous circulation. She is noted to have an EKG sinus rhythm with third-degree AV block, left anterior fascicular block, and right bundle branch block/bifascicular block. She has been maintaining her heart rate in the 30s to 40s and persistent third-degree AV block on telemetry. Preceding this she was noted to have further review sinus rhythm with some episodes of Mobitz 2 second-degree AV block. She is currently intubated and sedated. Dopamine has been initiated to assist with heart rate optimization as atropine has provided no significant improvement. EP has been consulted and preparation for temporary pacemaker implant. REVIEW OF SYSTEMS: A 12 system review unable to assess, given the patient is in an intubated state. ALLERGIES: NO KNOWN DRUG ALLERGIES. PAST MEDICAL HISTORY: Significant for hypertension, ESRD, kidney stones, DVT, gout, and dementia. SOCIAL HISTORY: Unable to assess per EMR. Smoker. No alcohol or drugs. FAMILY HISTORY: Noncontributory. PHYSICAL EXAMINATION: VITAL SIGNS: Temperature 96.5, heart rate 39, blood pressure 80/40, O2 saturation 98% on vent support that will be on PEEP of 5. GENERAL: Intubated, moving four extremities. Altered mental status. CHEST: Clear to auscultation. CARDIOVASCULAR: Irregular rhythm. Normal S1 and S2. Systolic ejection murmur /6. ABDOMEN: Soft. Catheter in place. EXTREMITIES: No edema. MEDICATIONS: Cardiovascular medications reviewed. Dopamine, meropenem, amlodipine, now getting vancomycin and subcu heparin 5 q.12. LABORATORY DATA: Her EKG as discussed above. White blood cell 7.9, hemoglobin 10.3, platelets 366. INR 1.5. Sodium 138, potassium 4.2, chloride 100, bicarbonate 26, BUN 40, creatinine 5.4, glucose 71, calcium 6.9. BNP 736. Chest x-ray, ET tube in proper location, worsening pulmonary edema. ASSESSMENT: 1. A 78-year-old woman, status post asystole cardiac arrest. 2. Third-degree AV block with concomitant bifascicular block, right bundle, and left anterior fascicular. 3. End-stage renal disease. 4. Hypertension. 5. Peritonitis in a patient with PD catheter. 6. Sepsis. RECOMMENDATIONS: Overall guarded prognosis in critical state, high risk for , and worsening condition. I have discussed extensively with the patient's family members over the phone. I will coordinate care with cardiac electrophysiology with plans for devise today. Given electrical instability. Dopamine continued for now. Appreciate close monitoring in ICU postoperatively. Continue antibiotics. Obtain echocardiogram. MD MARTHA Ramirez/LOKI /[id number]
[2019-04-14] MEDS: ALBUTEROL/IPRATROPIUM 3 ML NEB NEB SCH ×4 (01:05→19:40)
[2019-04-14] MEDS: MIDAZOLAM HCL 2 MG/2 ML VIAL IV PRN ×4 (01:30→18:53)
--- NOTE | 2019-04-14 01:30 | Progress Note ---
DATE: 04/13/2019 Medicine Progress Note. Coverage for Dr. Gilbert Orozco. HISTORY OF PRESENT ILLNESS: Ms. Mclaughlin was seen and examined at bedside. The patient was on 8 L/minute nasal cannula earlier today. The patient was getting dialysis with goal of 4 L negative balance. She had eaten very well earlier. She was planned preoperatively for surgery. The patient went to the OR and prior to operation went into cardiac arrest. The patient had CPR and resuscitation. The patient was sent to the emergency room and Dr. Tamayo was consulted by harvest worker fruit Dr. Valdez. The patient underwent some resuscitation. Noted third-degree heart block and the patient was recommended for temporary or permanent pacemaker placement. REVIEW OF SYSTEMS: Earlier, no headaches, no nose bleeds. OBJECTIVE: VITAL SIGNS: Earlier vitals were noted, more stable than they were towards the evening and afternoon. HEENT: Normocephalic, atraumatic. NECK: Supple. Throat midline. LUNGS: Bilateral air entry, decreased effort, rare rhonchi. CARDIOVASCULAR: S1, S2. No murmurs, rubs, or gallops. ABDOMEN: Soft, nontender in the upper part, although lower parts with some discomfort. EXTREMITIES: No clubbing. No cyanosis. INTEGUMENT: No rash or purpura. LABORATORY DATA: 4.1 potassium earlier, 53 BUN, 7.3 creatinine. 8 white count, 34 hematocrit, 306 platelets. INR 1.58. Chest x-ray had increasing pleural/pulmonary edema. IMPRESSION AND PLAN: 1. Acute respiratory failure, intubated. 2. Status post cardiac arrest to include heart block, status post AICD. 3. Pulmonary edema, fluid overload. 4. End-stage renal disease, on dialysis. 5. History of lupus. 6. History of DVT, right leg. 7. History of hypertension. 8. History of early dementia. 9. Anemia. 10. History of peritoneal dialysis related peritonitis, GPCs with specimen going to reference lab. Continue close followup. Eventually will need conversion to long-term dialysis access. Emergency AICD today. Dialysis earlier as was done. The patient remains in critical condition at this time. Hopeful as the patient stabilizes to get negative fluid balance once again and extubation soon. We will allow lumber tripper to do this. MD MEET Hwang/LOKI /[id number]
[2019-04-14] MEDS: MORPHINE SULFATE INJ 4 MG/ML INJ 1ML IV PRN (03:25)
[2019-04-14 04:33] LABS: BASOPHILS % 0.2 % (0.0-1.0); EOSINOPHILS # (AUTO) 0.2 (0.0-0.4); EOSINOPHILS % 2.4 % (0.0-6.0); HEMATOCRIT 28.3 % (34.2-44.1); LYMPHOCYTES # (AUTO) 0.7 (1.0-3.2); LYMPHOCYTES % 7.9 % (18.0-39.1); MEAN CORPUSCULAR HEMOGLOBIN 30.7 pg (28-32); MEAN CORPUSCULAR HGB CONC 31.8 g/dL (31-35); MEAN CORPUSCULAR VOLUME 96.6 fL (81-99); MONOCYTES # (AUTO) 0.6 (0.2-0.8); MONOCYTES % 7.1 % (4.4-11.3); NEUTROPHILS # (AUTO) 7.2 (2.1-6.9); NEUTROPHILS % 81.9 % (38.7-80.0); PLATELET COUNT 283 x10e3/uL (140-360); RED BLOOD COUNT 2.93 x10e6/uL (3.6-5.1); RED CELL DISTRIBUTION WIDTH 14.2 % (11.7-14.4)
[2019-04-14 04:49] LABS: ALBUMIN 1.4 g/dL (3.5-5.0); ALBUMIN/GLOBULIN RATIO 0.6 (0.8-2.0); ANION GAP 18.2 mmol/L (8-16); CREATININE, SERUM 6.11 mg/dL (0.57-1.11); POTASSIUM 4.2 mmol/L (3.5-5.1)
[2019-04-14 04:57] LABS: CALCIUM 6.7 mg/dL (8.4-10.2)
--- NOTE | 2019-04-14 05:10 | NUR ---
Serum calcium 6.7. Called to Dr Valdez's service to notify. Await call back.
[2019-04-14] MEDS ORDERED: CALCIUM GLUCONATE 10% INJ 4.65 MEQ in SODIUM CHLORIDE 0.9% 50ML 50 ML IV ONE (05:45)
[2019-04-14] MEDS ORDERED: CALCIUM GLUCONATE 10% INJ 0.465 MEQ/ML VIAL ONE ×2 (05:48→06:16)
[2019-04-14] MEDS ORDERED: CALCIUM GLUCONATE 10% INJ 4.65 MEQ in SODIUM CHLORIDE 0.9% 50ML 100 ML IV ONE (06:00)
--- NOTE | 2019-04-14 06:09 | NUR ---
Called Dr. Valdez's answering service to relay critical Ca+ of 6.7. Spoke with Dr. Jagruti Ward, obtained order for Calcium Gluconate 1g.
[2019-04-14] MEDS ORDERED: SODIUM CHLORIDE 0.9% 100 ML ONE (06:13)
[2019-04-14 06:25] LABS: INR 1.31; PROTHROMBIN TIME 16.9 seconds (11.9-14.5)
[2019-04-14] MEDS ORDERED: CALCIUM GLUCONATE 10% INJ 4.65 MEQ in SODIUM CHLORIDE 0.9% 100 ML IV ONE (06:30)
--- NOTE | 2019-04-14 07:36 | Diagnostic Imaging Report ---
EXAMINATION: CHEST SINGLE (PORTABLE) INDICATION: ^intubation ^[id number] ^0540 COMPARISON: 04/13/2019 FINDINGS: AP view TUBES and LINES: The pacemaker is intact. Overlying the right ventricle. LUNGS: Lungs are well inflated. Bibasilar atelectasis. No new consolidations. Bilateral interstitial edema. PLEURA: Persistent moderate bilateral pleural effusions. No pneumothorax. HEART AND MEDIASTINUM: Mild enlargement of the cardiac silhouette is unchanged. Moderate calcifications of the aortic arch. BONES AND SOFT TISSUES: No acute osseous lesion. Soft tissues are unremarkable. UPPER ABDOMEN: No free air under the diaphragm. IMPRESSION: Unchanged moderate bilateral pleural effusions and interstitial edema. Signed by: Dr. Dennise Monet M.D. on 04/14/2019 7:33 AM
[2019-04-14] MEDS: CALCITRIOL 0.25 MCG CAP PO SCH (08:19)
[2019-04-14] MEDS: AMLODIPINE BESYLATE 5 MG TAB PO SCH (08:19)
[2019-04-14] MEDS: CALCIUM CARBONATE 500 MG CHEWABLE TABS PO SCH ×3 (08:19→20:49)
[2019-04-14] MEDS: FENTANYL CITRATE INJ 2,000 MCG in SODIUM CHLORIDE 0.9% 250ML 210 ML IV PRN ×2 (08:30→23:15)
[2019-04-14] MEDS ORDERED: NOREPINEPHRINE 8 MG/D5W 250 ML 250 ML IV PRN (11:00)
[2019-04-14] MEDS: ALBUMIN 25% 12.5GM 0.25 GM/ML BTL IV PRN (11:06)
[2019-04-14] MEDS ORDERED: NOREPINEPHRINE 8 MG/D5W 250 ML 250 ML ONE ×2 (11:17→11:20)
--- NOTE | 2019-04-14 13:53 | NUR ---
Nutrition Intervention Note RD Recommendation(s) for Physician: - If GI is ok to feed, rec to initiate continuous TF of Vital HP@55ml/hr, providing 1320kcal, 116g protein, and 1104mL water - 50mL water q 4hr, additional per MD - Check labs, gastric residual, weight daily Plan of Care: RD following, monitoring for tolerance and adequacy, TF rec Nutrition reason for involvement: Follow up, ventilated RD Assessment (04/14) Pt went into cardiac arrest prior to operation on 04/13. Currently intubated and ventilated. HD was completed today. Visited pt in the room. Pt was getting fentanyl and norepinephrine @4mcg/min. Will continue to monitor and follow. (04/09) Chart reviewed. Labs and meds reviewed. 78yo F, who was admitted for peritonitis complicating peritoneal dialysis. Visited pt in the room. Pt reported poor appetite for several days. Pt stated I get sick if I eat too much. PCT recorded 25-50% meal intake since admission. Pt denied any chewing or swallowing difficulty at this time. RD offered oral nutrition supplements but pt refused. Pt stated I dont want anything right now.Unknown weight loss history. Will continue to monitor and follow. Principal Problems/Diagnoses: 1. Acute respiratory failure, intubated. 2. Status post cardiac arrest to include heart block, status post AICD. 3. Pulmonary edema, fluid overload. 4. PD peritonitis PMH: 1. End-stage renal disease on PD 2. Early dementia. 3. Hypertension. 4. Metabolic bone disease. 5. Anemia of chronic disease. GI: abdomen distended, round, large, soft, LBM - 04/13 Skin: no pressure wound noted Labs: (04/14) BUN 45 H, Creatinine 6.11 H, Glucose 66 L, calcium 6.7 L Meds: albumin, heparin, fentanyl, norepinephrine @4mcg/min Ht: 67in Wt: 142lb BMI: 22.2kg/m2 IBW: 135lb Malnutrition Evaluation (04/09/2019) The patient does not meet criteria for a specified degree of malnutrition at this time. Will re-evaluate at follow-up as appropriate. Nutrition Prescription (Diet Order): NPO Estimated Nutritional Needs: Calories: 1300 - 1625kcal(20-25kcal/kg/d) Weight used: ABW Protein: 98 - 163g (1.5-2.5g/kg/d) Weight used: ABW Diet Adequacy: Not meeting calorie needs, Not meeting protein needs Diet Education Needs Assessment: Diet education indicated, but patient not appropriate for education at this time. Nutrition Care Level: mod Nutrition Diagnosis: Inadequate oral intake related to current medical status (ventilated) as evidenced by pt requring EN as main source of nutrition. Goal: Patient will meet 75-100% of estimated needs by follow up Progress: N/A Interventions: Composition, Rate, Route, IVF, Prescription medications Monitoring/Evaluation: Total energy intake, Total protein intake, Formula/Solution, IVF, Prescription medication, Weight change, Labs, Gastric tolerance Signed: Brielle Buckley MS, RD, LD
--- NOTE | 2019-04-14 14:36 | NUR ---
Medicine Progress Note. Encounter: 04/14/[address] Gilbert Orozco. SUBJECTIVE: Since yesterday the patient has had cardiac arrest and was intubated. Transvenous pacer placed and is pacing. patient with good neurologic function per caregiver and staff. levophed 1/. fentanyl iv. CXR with mod to large effusions/overload REVIEW OF SYSTEMS: Cant get, AMS OBJECTIVE: VITAL SIGNS: Semi-unstable per record GENERAL: Intubated, arouses on mild stimuli HEENT: Normocephalic, atraumatic. NECK: Supple. Throat midline. LUNGS: Bilateral air entry rhonchi. CARDIOVASCULAR: S1, S2. No murmurs, rubs, or gallops. ABDOMEN: Soft, mostly non-tender EXTREMITIES: No clubbing. No cyanosis. INTEGUMENT: No rash. Thin skin, bruises LABORATORY DATA: 4.2 k, 9 wbc, 28 hct, 283 plt CXR as above IMPRESSION AND PLAN: 1. Acute respiratory failure, intubated. 2. Status post cardiac arrest to include heart block, status post AICD. 3. Pulmonary edema, fluid overload. 4. End-stage renal disease, on dialysis. 5. History of lupus. 6. History of DVT, right leg. 7. History of hypertension. 8. History of early dementia. 9. Anemia. 10. History of peritoneal dialysis related peritonitis, GPCs/specimen at reference lab. Maintain intubated, ventilator support, sedation per land acquisition specialist pressors maintain TVP, convert to permanent device when cleared by ID Eventually will need conversion to long-term dialysis access. Fluid balance, HD per renal expert. patient may need pleural drainage
[2019-04-14] MEDS ORDERED: VANCOMYCIN 1GM/NS 250 ML 250 ML IV ONE (15:15)
[2019-04-14] MEDS: MEROPENEM 500MG/ NS 50ML 50 ML IV SCH (16:00)
--- NOTE | 2019-04-14 16:18 | Progress Note ---
DATE: 04/14/2019 Cardiology Progress Note. SUBJECTIVE: Status post temporary pacemaker implant, known telemetry paced rhythm, now on dialysis, requiring low-dose Levophed during dialysis. She was previously not on intubated with fentanyl sedation. Currently able to open eyes and calmly respond by nodding and follows transcript, moves extremities. OBJECTIVE: VITAL SIGNS: Temperature 96.8, heart rate 69, blood pressure 156/61, respiratory rate 16, O2 saturation 99%. GENERAL: In no acute distress, intubated, calm. HEENT: Pupils equal, react to light and accommodation. CHEST: With coarse breath sounds. CARDIOVASCULAR: Regular rate and rhythm. Normal S1, S2. Systolic ejection murmur. ABDOMEN: Distended. Dressings in place. EXTREMITIES: With trace edema and warm. CARDIOVASCULAR MEDICATIONS: Reviewed. Amlodipine 10 mg daily, Levophed low-dose, dopamine has been discontinued, on meropenem antibiotic. STUDIES: Sodium 142, potassium 4.2, chloride 104, bicarbonate 24, BUN 45, creatinine 6.1, glucose 66. White blood cells 8.7, hemoglobin 9, platelets 283. INR 1.3. AST 11, ALT 6, alkaline phosphatase 54, total bilirubin 0.4. ASSESSMENT: A 78-year-old woman presents with secondary peritonitis in patient with PD catheter in place, status post asystole cardiac arrest and third-degree AV block associated with right bundle-branch block and left anterior fascicular block for which she has received a temporary pacemaker. RECOMMENDATIONS: 1. Continue supportive care. Patient remains in shock, requiring low-dose Levophed during dialysis. However, hemodynamics somewhat better and is status post pacemaker implant. 2. Anemia. Monitor is currently stable. 3. Acute respiratory failure, on vent support. Wean as tolerated. 4. History of peritonitis, Ancef and severe sepsis on antibiotics. Continue recommendations per ID. 5. Antihypertensives, currently on hold given the issues with labile hemodynamics. Continue to hold for now. 6. Overall guarded prognosis in critical state updated family and care provider. 7. If patient improves and once more stable and with negative cultures and infection treated prior to discharge, would benefit for permanent pacemaker implant. Blaze Cristina MD AFV/MODL /[id number]
[2019-04-14] MEDS: PANTOPRAZOLE 40 MG 10ML VIAL IV SCH (16:30)
[2019-04-15] VITALS (25 sets, daily range): BP systolic 100–157; BP diastolic 40–86
[2019-04-15] MEDS: MIDAZOLAM HCL 2 MG/2 ML VIAL IV PRN ×2 (00:04→08:04)
[2019-04-15] MEDS: DEXTROSE 5% 1,000 ML IV SCH ×2 (00:59→23:32)
[2019-04-15] MEDS: ALBUTEROL/IPRATROPIUM 3 ML NEB NEB SCH ×4 (01:25→19:22)
[2019-04-15 05:09] LABS: PHOSPHORUS 4.6 MG/DL (2.3-4.7); POTASSIUM 4.1 mmol/L (3.5-5.1)
[2019-04-15 05:12] LABS: CALCIUM IONIZED 0.9 mmol/L (1.09-1.30)
[2019-04-15 05:28] LABS: ANION GAP 18.2 mmol/L (8-16); CALCIUM 7.1 mg/dL (8.4-10.2); CREATININE, SERUM 4.17 mg/dL (0.57-1.11); POTASSIUM 4.2 mmol/L (3.5-5.1)
--- NOTE | 2019-04-15 06:27 | NUR ---
Poor pulse quality intermittent. Upon evaluating pulse quality disparity, noted some of the patients natural heartbeats are of poor quality while all of the paced beats are strong. This is occurring with some regularity at this time. Have spoken with Dr Gaines to notify. Stip placed on chart which demonstrates with the arterial line/ ekg tracing.
--- NOTE | 2019-04-15 07:00 | Diagnostic Imaging Report ---
EXAMINATION: CHEST SINGLE (PORTABLE) INDICATION: ^intubated ^[id number] ^[id number] COMPARISON: 04/14/2019 FINDINGS: AP view TUBES and LINES: Stable left chest wall cardiac device, endotracheal tube, and right internal jugular central line. LUNGS and pleura: Lungs are well inflated. Not significantly changed mild interstitial edema and moderate size bilateral pleural effusions, right greater than left. Right apical scarring. No visible pneumothorax. HEART AND MEDIASTINUM: The cardiomediastinal silhouette is unremarkable. BONES AND SOFT TISSUES: No acute osseous lesion. Soft tissues are unremarkable. UPPER ABDOMEN: No free air under the diaphragm. IMPRESSION: Mild interstitial edema and bilateral layering moderate size pleural effusions, not significantly changed from prior exam. Underlying atelectasis/pneumonia cannot be excluded. Signed by: Dr. Kingsley Mitchell MD on 04/15/2019 6:57 AM
[2019-04-15] MEDS: CALCIUM CARBONATE 500 MG CHEWABLE TABS PO SCH ×3 (07:53→21:00)
[2019-04-15] MEDS: AMLODIPINE BESYLATE 5 MG TAB PO SCH (07:53)
[2019-04-15] MEDS: CALCITRIOL 0.25 MCG CAP PO SCH (07:53)
[2019-04-15] MEDS: PANTOPRAZOLE 40 MG 10ML VIAL IV SCH (08:00)
[2019-04-15] MEDS: MEROPENEM 500MG/ NS 50ML 50 ML IV SCH (08:00)
[2019-04-15] MEDS: HEPARIN SOD (PORCINE) 5,000 UNIT/ML VIAL SC SCH ×2 (08:01→21:47)
--- NOTE | 2019-04-15 11:10 | NUR ---
Kendell Mclaughlin ([facility]) patient's son calls and states he is bringing the advance directive later today. states he wants to hold the surgery right now d/t patient's advance directive, and he says she was ok with the "gravity fed" dialysis but that she wasn't wanting machines. Awaiting md's to round to discuss
--- NOTE | 2019-04-15 12:12 | NUR ---
mpoa and ad placed in chart
--- NOTE | 2019-04-15 13:20 | NUR ---
Medicine Progress Note. Encounter: 04/15/[address] Gilbert Orozco. SUBJECTIVE: intubated orally on ventilator 45% fio2, 5 peep CXR with overload/effusions moderate to large off pressors temporary pacer in place REVIEW OF SYSTEMS: Ольга rose AMS OBJECTIVE: VITAL SIGNS: Semi-unstable per record GENERAL: Intubated, arouses on mild stimuli HEENT: Normocephalic, atraumatic. NECK: Supple. Throat midline. LUNGS: Bilateral air entry rhonchi. CARDIOVASCULAR: S1, S2. No murmurs, rubs, or gallops. ABDOMEN: Soft, mostly non-tender EXTREMITIES: No clubbing. No cyanosis. INTEGUMENT: No rash. Thin skin, bruises LABORATORY DATA: 4.2 k, 9 wbc, 28 hct, 283 plt CXR as above IMPRESSION AND PLAN: 1. Acute respiratory failure, intubated. 2. Status post cardiac arrest to include heart block, status post AICD. 3. Pulmonary edema, fluid overload. 4. End-stage renal disease, on dialysis. 5. History of lupus. 6. History of DVT, right leg. 7. History of hypertension. 8. History of early dementia. 9. Anemia. 10. History of peritoneal dialysis related peritonitis, GPCs/specimen at reference lab. abx for PD continue multidisciplinary care plan continue plan for ventilator support, sedation, need for pleural drainage per copy messenger pressors d/c maintain TVP, convert to permanent device when cleared by ID / infection Eventually will need conversion to long-term dialysis access.and removal of PD access Fluid balance, HD per renal updated caregiver and son.
[2019-04-15] MEDS ORDERED: MIDAZOLAM HCL 2 MG/2 ML VIAL IV PRN (13:45)
[2019-04-15] MEDS ORDERED: FENTANYL CITRATE INJ 2,000 MCG in SODIUM CHLORIDE 0.9% 250ML 210 ML IV PRN (13:45)
[2019-04-15 14:19] LABS: ABG PCO2 40 mmHg (41-51); ABG PH 7.36 (7.31-7.41); ABG PO2 94 mmHg (80-105)
[2019-04-15 14:20] LABS: ABG HCO3 22 mmol/L (23-28)
--- NOTE | 2019-04-15 23:24 | Progress Note ---
DATE: 04/15/2019 Cardiology Progress Note SUBJECTIVE: Remains intubated, now off pressors. Temporary pacemaker in place. OBJECTIVE: VITAL SIGNS: Temperature 98.4, heart rate 74, respiratory rate 16, blood pressure 118/59. GENERAL: Intubated, sedated. CHEST: With coarse breath sounds. CARDIOVASCULAR: Regular rate and rhythm. Normal S1 and S2. ABDOMEN: Soft. EXTREMITIES: No edema, warm distal extremities. CARDIOVASCULAR MEDICATIONS: Reviewed. Fentanyl, Versed, heparin 5000 units subcu q.12 hours, meropenem, amlodipine discontinued. STUDIES: White blood cells 8.7, hemoglobin 9, platelets 283. Sodium 140, potassium 4.2, chloride 103, bicarbonate 23, BUN 28, creatinine 4.1, glucose 75, calcium 7.1. Telemetry, paced rhythm. ASSESSMENT: A 78-year-old woman, presents with, 1. 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 2. Status post septic shock. 3. Anemia. 4. Acute respiratory failure, requiring ventilator support. 5. Hypertension, history of. RECOMMENDATIONS: 1. Discontinue amlodipine, which the patient has not been receiving as it has been held. 2. Continue antibiotics. 3. Has been off pressors today. Continue to monitor hemodynamics. 4. Temporary pacemaker in place, await recovery, once no infection and prior to discharge if improved, will need consideration of permanent pacemaker implantation preceding discharge. MD MARTHA Ramirez/LOKI /[id number]
[2019-04-16] VITALS (24 sets, daily range): BP systolic 112–145; BP diastolic 42–76
--- NOTE | 2019-04-16 00:26 | NUR ---
Pt is seen scooting down in bed. Have reeducated pt to not try to reposition herself in this manner, this causes wounds. Pt shook her head in agreement to push the button and call for assist if she needs anything. Cont q2 hr positioning and toileting offerings. Will monitor.
[2019-04-16] MEDS: ALBUTEROL/IPRATROPIUM 3 ML NEB NEB SCH ×4 (01:12→19:30)
[2019-04-16 05:38] LABS: BASOPHILS % 0.3 % (0.0-1.0); EOSINOPHILS # (AUTO) 0.3 (0.0-0.4); EOSINOPHILS % 3.2 % (0.0-6.0); HEMATOCRIT 29.5 % (34.2-44.1); LYMPHOCYTES # (AUTO) 0.9 (1.0-3.2); LYMPHOCYTES % 10.2 % (18.0-39.1); MEAN CORPUSCULAR HGB CONC 30.5 g/dL (31-35); MEAN CORPUSCULAR VOLUME 98.3 fL (81-99); MONOCYTES # (AUTO) 0.6 (0.2-0.8); MONOCYTES % 7.1 % (4.4-11.3); NEUTROPHILS # (AUTO) 6.9 (2.1-6.9); NEUTROPHILS % 77.8 % (38.7-80.0); PLATELET COUNT 270 x10e3/uL (140-360); RED CELL DISTRIBUTION WIDTH 14.5 % (11.7-14.4)
[2019-04-16 05:46] LABS: INR 1.23; PROTHROMBIN TIME 16.1 seconds (11.9-14.5)
[2019-04-16 05:48] LABS: PARTIAL THROMBOPLASTIN TIME 57.5 seconds (23.8-35.5)
[2019-04-16 05:57] LABS: ANION GAP 17.1 mmol/L (8-16); CREATININE, SERUM 5.21 mg/dL (0.57-1.11); POTASSIUM 4.1 mmol/L (3.5-5.1)
[2019-04-16 06:12] LABS: CALCIUM 6.9 mg/dL (8.4-10.2)
--- NOTE | 2019-04-16 06:17 | Diagnostic Imaging Report ---
EXAMINATION: CHEST SINGLE (PORTABLE) COMPARISON: Chest x-ray 04/15/2019 INDICATION: Pleural effusions ^Follow up ^[id number] ^[id number] DISCUSSION: Frontal view of the chest obtained at 0549 hours. HEART AND MEDIASTINUM: The cardiomediastinal silhouette is stable. LINES: Endotracheal tube terminates at the thoracic inlet, approximately 7 cm above the lisandra. Right IJ catheter terminates in the SVC. AICD lead is stable. LUNGS/PLEURA: Bibasilar airspace opacities are redemonstrated with moderate sized pleural effusions. BONES AND SOFT TISSUES: No focal osseous lesion. Surgical clips in the lower right neck are stable IMPRESSION: No change in pleural effusions and bibasilar atelectasis or infiltrates. Support devices as described above. Signed by: Dr. Indigo Kerr MD on 04/16/2019 6:14 AM
[2019-04-16] MEDS ORDERED: CALCIUM GLUCONATE 10% INJ 4.65 MEQ in SODIUM CHLORIDE 0.9% 50ML 50 ML IV ONE (06:45)
[2019-04-16] MEDS: CALCIUM CARBONATE 500 MG CHEWABLE TABS PO SCH ×3 (09:00→20:57)
[2019-04-16] MEDS: HEPARIN SOD (PORCINE) 5,000 UNIT/ML VIAL SC SCH ×2 (09:00→20:58)
[2019-04-16] MEDS: PANTOPRAZOLE 40 MG 10ML VIAL IV SCH (09:00)
[2019-04-16] MEDS: CALCITRIOL 0.25 MCG CAP PO SCH (09:00)
[2019-04-16] MEDS: MEROPENEM 500MG/ NS 50ML 50 ML IV SCH (09:00)
--- NOTE | 2019-04-16 11:01 | Diagnostic Imaging Report ---
Date and Time: 04/16/2019 Procedure: Ultrasound-guided right thoracentesis first press operator: Dr. Ghosh Pre-operative diagnosis: Right pleural effusion Post-operative diagnosis: Right pleural effusion Conscious Sedation: None The patient's heart rate and pulse oximetry were continuously monitored by the ICU nurse. Blood pressure was monitored at 5 minute intervals. Additional Medications: Lidocaine 1% for local anesthesia Estimated blood loss: Less than 10 cc Blood products administered: None Specimens: 900 cc straw-colored fluid Implants: None Complications: No immediate Condition at completion: Guarded Disposition: Remain in ICU DISCUSSION: Informed consent was obtained and documented in the medical record. The patient was placed in the left lateral decubitus position and the right posterolateral chest wall was prepped and draped in standard sterile fashion. A suitable percutaneous approach to the moderate right pleural effusion was identified and 1% lidocaine was infiltrated into the skin and subcutaneous tissues for local anesthesia. Then under continuous sonographic guidance a 5 Trin[place] Yueh needle catheter was advanced into the right pleural space. A permanent sonographic image was stored in the medical record. The catheter was advanced off the needle and connected to vacuum bottle with subsequent evacuation of 900 cc straw-colored fluid. The catheter was then removed and a sterile, occlusive dressing was applied. The patient tolerated the procedure well without immediate complication. FINDINGS: Moderate right pleural effusion. IMPRESSION: Successful ultrasound-guided right thoracentesis with evacuation of 900 cc straw-colored fluid. Specimen was submitted for laboratory analysis as requested by the referring clinical team. Signed by: Dr. Bob Ghosh M.D. on 04/16/2019 10:58 AM
--- NOTE | 2019-04-16 13:46 | Progress Note ---
DATE: 04/16/2019 Cardiology Progress Note SUBJECTIVE: Undergoing vent weaning trial, status post thoracentesis. Hemodialysis catheter placement pending. PD catheter discontinued. OBJECTIVE: VITAL SIGNS: Temperature 98.8, heart rate 68, respiratory rate 16, blood pressure 124/57 on vent support, saturating 100% on telemetry in sinus rhythm with v-paced rhythm. GENERAL: In no acute distress, alert. NECK: No JVD. Catheter in place. CHEST: Coarse breath sounds. CARDIOVASCULAR: Regular rate and rhythm. Normal S1, S2. No S3. Systolic ejection murmur. ABDOMEN: Soft. PD catheter in place. EXTREMITIES: No edema, warm distal extremities. CARDIOVASCULAR MEDICATIONS: Reviewed. Heparin 5000 units subcu q.12 hours. Atropine p.r.n. Pressors have been on hold for more than 48 hours. LABORATORY DATA: White blood cells 8.8, hemoglobin 9, platelets 270. INR 1.2. Sodium 139, potassium 4.1, chloride 103, bicarbonate 23, BUN 35, creatinine 5.2, glucose 283, calcium 6.9. Blood cultures negative x48 hours. ASSESSMENT: A 78-year-old woman with secondary bacterial peritonitis, end-stage renal disease on previously peritoneal dialysis, presents with septic shock, anemia, acute respiratory failure requiring ventilatory support and asystole, sudden cardiac as well as third-degree AV block associated with right bundle and left anterior fascicular block, now status post temporary pacemaker. RECOMMENDATIONS: 1. Continue weaning vent as tolerated. 2. Monitor hemodynamics. At this point, can discontinue arterial line. 3. Antibiotics per ID's expertise. 4. Monitor cultures prior to discharge home, would benefit from permanent pacemaker implant. 5. Volume management per Nephrology. Blaze Cristina MD AFV/MODL /[id number]
[2019-04-16 13:52] LABS: ABG PCO2 42 mmHg (41-51); ABG PH 7.36 (7.31-7.41); ABG PO2 67 mmHg (80-105)
[2019-04-16 13:53] LABS: ABG HCO3 24 mmol/L (23-28)
[2019-04-17] VITALS (24 sets, daily range): BP systolic 97–139; BP diastolic 53–92
[2019-04-17] MEDS: DEXTROSE 5% 1,000 ML IV SCH (00:47)
[2019-04-17] MEDS: ALBUTEROL/IPRATROPIUM 3 ML NEB NEB SCH ×4 (01:15→19:36)
[2019-04-17 05:03] LABS: BASOPHILS % 0.2 % (0.0-1.0); EOSINOPHILS # (AUTO) 0.3 (0.0-0.4); EOSINOPHILS % 2.5 % (0.0-6.0); HEMATOCRIT 30.2 % (34.2-44.1); HEMOGLOBIN 9.6 g/dL (12.0-16.0); LYMPHOCYTES # (AUTO) 0.9 (1.0-3.2); LYMPHOCYTES % 8.1 % (18.0-39.1); MEAN CORPUSCULAR HEMOGLOBIN 30.8 pg (28-32); MEAN CORPUSCULAR HGB CONC 31.8 g/dL (31-35); MEAN CORPUSCULAR VOLUME 96.8 fL (81-99); MONOCYTES # (AUTO) 0.9 (0.2-0.8); MONOCYTES % 8.3 % (4.4-11.3); NEUTROPHILS # (AUTO) 8.5 (2.1-6.9); PLATELET COUNT 265 x10e3/uL (140-360); RED BLOOD COUNT 3.12 x10e6/uL (3.6-5.1); RED CELL DISTRIBUTION WIDTH 14.5 % (11.7-14.4)
[2019-04-17 05:30] LABS: ANION GAP 17.5 mmol/L (8-16); CREATININE, SERUM 5.8 mg/dL (0.57-1.11); POTASSIUM 4.5 mmol/L (3.5-5.1)
[2019-04-17 05:57] LABS: CALCIUM 6.9 mg/dL (8.4-10.2)
[2019-04-17] MEDS: CALCITRIOL 0.25 MCG CAP PO SCH (08:57)
[2019-04-17] MEDS: MEROPENEM 500MG/ NS 50ML 50 ML IV SCH (08:57)
[2019-04-17] MEDS: CALCIUM CARBONATE 500 MG CHEWABLE TABS PO SCH ×3 (08:57→20:11)
[2019-04-17] MEDS: PANTOPRAZOLE 40 MG 10ML VIAL IV SCH (08:57)
[2019-04-17] MEDS: HEPARIN SOD (PORCINE) 5,000 UNIT/ML VIAL SC SCH ×2 (08:58→20:10)
[2019-04-17] MEDS ORDERED: CALCIUM GLUCONATE 10% INJ 4.65 MEQ in SODIUM CHLORIDE 0.9% 50ML 50 ML IV ONE (09:00)
[2019-04-17] MEDS ORDERED: HEPARIN SOD (PORCINE) 1000 UNIT/ML SDV IV PRN (14:15)
[2019-04-17] MEDS ORDERED: SODIUM CHLORIDE 0.9% 250ML 500 ML IV PRN (14:15)
[2019-04-17] MEDS ORDERED: SODIUM CHLORIDE 0.9% 1000ML 2,000 ML IV PRN (14:15)
--- NOTE | 2019-04-17 14:32 | NUR ---
PT DISCUSSED IN BARRIER ROUNDS EXTUBATED YESTERDAY, HAS TRALYSIS CATH STILL NEEDS TUNNEL PLACEMENT, WILL ATTEMPT AGAIN IN 2-3 DAYS. ALEXANDREAA PRODUCED 900 FROM RIGHT LUNG AND GOING TO CT TODAY AND POSSIBLE THORA TOMORROW ON LEFT.
[2019-04-17] MEDS ORDERED: ALTEPLASE RECOMBINANT 2 MG/2 ML VIAL IV PRN (15:00)
[2019-04-17] MEDS: VANCOMYCIN 1GM/NS 250 ML 250 ML IV SCH (17:19)
--- NOTE | 2019-04-17 20:07 | Diagnostic Imaging Report ---
EXAM: CT Chest WITHOUT contrast 04/17/2019 10:40 AM INDICATION: Peritoneal dialysis. COMPARISON: 04/16/2019 TECHNIQUE: Chest was scanned utilizing a multidetector helical scanner from the lung apex through the level of the adrenal glands without administration of IV contrast. Absence of intravenous contrast decreases sensitivity for detection of lymphadenopathy and vascular pathology. Coronal and sagittal reformations were obtained. Routine protocol was performed. IV CONTRAST: None RADIATION DOSE: Total DLP: 448 mGy*cm Estimated effective dose: (DLP x 0.014 x size factor) mSv Dose modulation, iterative reconstruction and weight based adjustment of the MA/KV was utilized to reduce the patient dose to as low as reasonably achievable. COMPLICATIONS: None FINDINGS: LINES/ TUBES: Left anterior chest cardiac device LUNGS AND AIRWAYS: Chronic appearing changes in the lungs with emphysema most pronounced in the upper lobes. Calcified granuloma in the right lung base. Atelectasis and scarring in the lung bases. Airways are normal. PLEURA: Large pleural effusions left side greater than right with associated atelectasis. HEART AND MEDIASTINUM: Surgical clips in the region of the right thyroid bed. A large heterogeneous left thyroid lobe. Prominent mediastinal and hilar lymph nodes could be reactive. Cardiomegaly with dilated pulmonary arteries consistent with pulmonary hypertension.. No pericardial effusion. Scattered atherosclerotic calcification in the visualized aorta, coronary arteries and branch vessels. UPPER ABDOMEN: Upper abdominal ascites and anasarca. BONES: Scattered degenerative change SOFT TISSUES: Unremarkable. IMPRESSION: Chronic appearing changes in the lungs with large pleural effusions and associated atelectasis. Cardiomegaly with pulmonary hypertension. Findings most consistent with volume overload. Signed by: Dr. Benedict Wade M.D. on 04/17/2019 8:03 PM
--- NOTE | 2019-04-17 20:29 | Progress Note ---
DATE: 04/17/2019 Cardiology Progress Note SUBJECTIVE: Extubated, no complaints. OBJECTIVE: VITAL SIGNS: Temperature 98.2, heart rate 74, blood pressure 117/71, respiratory rate 16, O2 saturation 99%. GENERAL: In no acute distress, alert. NECK: Dialysis catheter in place and temporary pacemaker in place. CHEST: Clear to auscultation with decreased breath sounds in the bases. CARDIOVASCULAR: Regular rate and rhythm. Normal S1, S2. No S3 or S4. ABDOMEN: Soft with PD catheter in place. EXTREMITIES: Trace edema. Warm distal extremities. CARDIOVASCULAR MEDICATIONS: Reviewed. P.r.n. atropine, vancomycin, meropenem, off pressors and inotropes. LABORATORY DATA: Reviewed. Potassium 4.5, bicarbonate 23, BUN 42, creatinine 5.8, glucose 110. White blood cells 10, hemoglobin 9.6, platelets 265. INR 1.2. AST 11, ALT 6, alkaline phosphatase 54. ASSESSMENT: 1. A 78-year-old woman presenting with secondary bacterial peritonitis in a patient with end-stage renal disease and PD at home previously now status post acute respiratory failure, now extubated. 2. Status post severe sepsis with septic shock, now off pressors. 3. Status post third-degree AV block, right bundle-branch block and left anterior fascicular block with temporary pacemaker in place. Plans for permanent pacemaker implantation prior to discharge. 4. History of hypertension. 5. Anemia. RECOMMENDATIONS: 1. Continue supportive care and antibiotics. 2. Cultures so far negative on repeat blood cultures drawn on the day of temporary pacemaker implant. Blaze Cristina MD AFRafael/MODL /[id number]
--- NOTE | 2019-04-17 21:55 | Operative Report ---
DATE OF PROCEDURE: 04/13/2019 SURGEON: Abiodun Fuchs MD PREPROCEDURE DIAGNOSES: High degree atrioventricular block, the patient is septic. PROCEDURE PERFORMED: Temporary/permanent pacemaker placement. DESCRIPTION OF PROCEDURE: The patient was brought into the EP Lab in fasting state. Left neck was prepped and draped in a sterile fashion. One guidewire was inserted in the patient's left internal jugular vein using a modified Seldinger technique. No complications. A wire was passed to the right atrium and a pacing lead was advanced to RV apex and fixated in place, sensing 5, threshold 0.9, impedence 500 ohms. Lead was sutured to the skin and was connected to [place] permanent pacemaker, stitched to the skin. The patient tolerated the procedure well. No complications. CONCLUSION: Temporary pacemaker with a permanent pacemaker lead placement. We will await still the sepsis recovers and plan for either explant or permanent pacemaker accordingly. MD ADIS Henderson/MODL /[id number]
--- NOTE | 2019-04-17 22:38 | NUR ---
Left message with answering service for Dr. Braga at [address] results. returned call and notified of CT chest results. No new orders received.
[2019-04-18] VITALS (23 sets, daily range): BP systolic 117–166; BP diastolic 56–99
[2019-04-18] MEDS: DEXTROSE 5% 1,000 ML IV SCH
[2019-04-18] MEDS: ALBUTEROL/IPRATROPIUM 3 ML NEB NEB SCH ×4 (01:08→19:30)
[2019-04-18 05:00] LABS: BASOPHILS % 0.3 % (0.0-1.0); EOSINOPHILS # (AUTO) 0.1 (0.0-0.4); HEMATOCRIT 31.9 % (34.2-44.1); HEMOGLOBIN 9.9 g/dL (12.0-16.0); LYMPHOCYTES # (AUTO) 0.6 (1.0-3.2); LYMPHOCYTES % 6.2 % (18.0-39.1); MEAN CORPUSCULAR VOLUME 96.7 fL (81-99); MONOCYTES # (AUTO) 0.6 (0.2-0.8); MONOCYTES % 5.7 % (4.4-11.3); NEUTROPHILS # (AUTO) 8.8 (2.1-6.9); NEUTROPHILS % 86.1 % (38.7-80.0); PLATELET COUNT 238 x10e3/uL (140-360); RED CELL DISTRIBUTION WIDTH 14.3 % (11.7-14.4)
[2019-04-18 05:15] LABS: ANION GAP 15.3 mmol/L (8-16); CALCIUM 7.4 mg/dL (8.4-10.2); CREATININE, SERUM 3.93 mg/dL (0.57-1.11); POTASSIUM 4.3 mmol/L (3.5-5.1)
[2019-04-18] MEDS: HEPARIN SOD (PORCINE) 5,000 UNIT/ML VIAL SC SCH ×2 (07:09→20:32)
[2019-04-18] MEDS: PANTOPRAZOLE 40 MG 10ML VIAL IV SCH (09:00)
[2019-04-18] MEDS: MEROPENEM 500MG/ NS 50ML 50 ML IV SCH (09:00)
[2019-04-18] MEDS: CALCIUM CARBONATE 500 MG CHEWABLE TABS PO SCH ×3 (09:00→20:30)
[2019-04-18] MEDS: CALCITRIOL 0.25 MCG CAP PO SCH (09:00)
[2019-04-18] MEDS ORDERED: LORAZEPAM 0.5 MG TAB PO ONE (11:30)
[2019-04-18] MEDS: NYSTATIN 15 GM POWDER UD BTL TOP SCH (12:00)
[2019-04-18 12:10] LABS: BODY FLUID TYPE PLEURAL
--- NOTE | 2019-04-18 12:14 | Diagnostic Imaging Report ---
Examination: Single AP view of the chest. COMPARISON: Chest CT 04/17/2019 INDICATION: Post left thoracentesis DISCUSSION: Right internal jugular high flow central venous catheter and left internal jugular approach implantable cardiac device are unchanged in position. Interval left thoracentesis with essentially complete evacuation of pleural effusion. No pneumothorax. Trace right pleural effusion with probable subsegmental atelectasis of the right lower lobe. No acute osseous abnormality. IMPRESSION: Interval left thoracentesis with complete evacuation of the left pleural effusion. No pneumothorax. Signed by: Dr. Bob Ghosh M.D. on 04/18/2019 12:11 PM
[2019-04-18] MEDS ORDERED: HEPARIN SOD (PORCINE) 1000 UNIT/ML 30ML ONE (12:18)
[2019-04-18] MEDS ORDERED: MIDAZOLAM HCL 2 MG/2 ML VIAL ONE (12:18)
[2019-04-18] MEDS ORDERED: SODIUM CHLORIDE 0.9% 1000ML 2,000 ML ONE (12:19)
[2019-04-18] MEDS ORDERED: LIDOCAINE HCL 2% LOCAL 20 ML VIAL ONE (12:19)
[2019-04-18] MEDS ORDERED: FENTANYL CITRATE/PF 100MCG/2 ML INJ ONE (12:19)
--- NOTE | 2019-04-18 12:30 | Diagnostic Imaging Report ---
Date and Time: 04/18/2019 Procedure: Ultrasound-guided left thoracentesis tower switch operator: Dr. Ghosh Pre-operative diagnosis: Left pleural effusion Post-operative diagnosis: Left pleural effusion Conscious Sedation: None The patient's heart rate and pulse oximetry were continuously monitored by the ICU nurse. Blood pressure was monitored at 5 minute intervals. Additional Medications: Lidocaine 1% for local anesthesia Estimated blood loss: Less than 10 cc Blood products administered: None Specimens: 800 cc straw-colored fluid Implants: None Complications: No immediate Condition at completion: Guarded Disposition: Remain in ICU DISCUSSION: Informed consent was obtained and documented in the medical record. The patient was placed in the right lateral decubitus position and the left posterolateral chest wall was prepped and draped in standard sterile fashion. A suitable percutaneous approach to the moderate left pleural effusion was identified and 1% lidocaine was infiltrated into the skin and subcutaneous tissues for local anesthesia. Then under continuous sonographic guidance a 5 Maltese Yueh needle catheter was advanced into the left pleural space. A permanent sonographic image was stored in the medical record. The catheter was advanced off the needle and connected to vacuum bottle with subsequent evacuation of 800 cc straw-colored fluid. The catheter was then removed and a sterile, occlusive dressing was applied. The patient tolerated the procedure well without immediate complication. FINDINGS: Moderate left pleural effusion. IMPRESSION: Successful ultrasound-guided left thoracentesis with evacuation of 800 cc straw-colored fluid. Specimen was submitted for laboratory analysis as requested by the referring clinical team. Signed by: Dr. Bob Ghosh M.D. on 04/18/2019 12:27 PM
--- NOTE | 2019-04-18 13:17 | Progress Note ---
DATE: 04/18/2019 SUBJECTIVE: No new complaints. OBJECTIVE: VITAL SIGNS: Temperature 97.7, heart rate 84, respiratory rate 19, blood pressure 152/76, O2 saturation 100% on 2 L/minute nasal cannula. GENERAL: In no acute distress, alert. NECK: No JVD. Temporary pacemaker and dialysis catheter in place. CHEST: Clear to auscultation. CARDIOVASCULAR: Regular rate and rhythm. Normal S1 and S2. No S3 or S4. ABDOMEN: Soft. Peritoneal dialysis catheter in place. EXTREMITIES: No edema, warm distal extremities. SKIN: Intact. CARDIOVASCULAR MEDICATIONS: Reviewed. Vancomycin, meropenem antibiotics, atropine p.r.n. STUDIES: Reviewed. White blood cells 10.2, hemoglobin 9.9, platelets 238. Sodium 137, potassium 4.3, chloride 102, bicarbonate 24, BUN 23, creatinine 3.9, glucose 110, calcium 7.4, pH 7.36/42/67. Blood cultures negative x72 hours. ASSESSMENT: 1. Third-degree AV block requiring temporary pacemaker. 2. Asystole, cardiac arrest, with return of spontaneous circulation. 3. Secondary bacterial peritonitis. 4. End-stage renal disease previously on peritoneal dialysis, currently undergoing intermittent hemodialysis. 5. Status post severe sepsis with septic shock, now off pressors. 6. History of hypertension. 7. Anemia. RECOMMENDATIONS: 1. Negative blood cultures. EP considering permanent pacemaker implant, different timing to EP's expertise. 2. Volume optimization per Nephrology. 3. Antibiotics. Blaze Cristina MD AFRafael/MODL /[id number]
[2019-04-18 13:45] LABS: BODY FLUID APPEARANCE CLEAR; BODY FLUID COLOR COLORLESS
[2019-04-18 14:17] LABS: RBC,BODY FLUID 13 cells/uL; WBC,BODY FLUID 12 cells/uL
--- NOTE | 2019-04-18 15:25 | Diagnostic Imaging Report ---
Procedure: Tunneled hemodialysis catheter placement. Crib Tender: Bob Ghosh M.D.. Health And Social Care Teacher: None. Preprocedure diagnosis: End-stage renal disease Postprocedure diagnosis: End-stage renal disease Sedation/anesthesia: Versed 1 mg intravenous, fentanyl 50 mcg intravenous. The patient's heart rate and pulse oximetry were continuously monitored by the interventional radiology nurse. Blood pressure was monitored at 5 minute intervals. Total intraservice time for sedation: 30 minutes Fluoroscopy time: 2.1 minutes Dose area product: 258.1 cGycm2 Contrast used: None Estimated blood loss: Minimal. Blood products administered: None Implants/grafts: 16 English, 19 cm tip-cuff tunneled hemodialysis catheter Specimens: Temporary hemodialysis catheter, discarded Complications: No immediate. Condition at completion: Stable Disposition: Returned to ICU Procedure in detail: Informed consent for the procedure was obtained from the patient's power of consumer attorney after discussion of risks and benefits. The right neck and upper chest was prepped and draped in the standard sterile fashion after the patient was placed in the supine position on the fluoroscopic table. Preliminary sonographic evaluation confirmed patency of the right internal jugular vein, evidenced by compressibility. 1% lidocaine was administered into the skin and subcutaneous tissues of the right lower neck for local anesthesia. Then, under continuous sonographic guidance, a 21-gauge micropuncture needle was advanced into the right internal jugular vein. A permanent sonographic image was stored in the medical record. A 0.018 inch wire was advanced centrally under fluoroscopic guidance. The needle was then removed and access was secured with a micropuncture sheath. Intravascular length to the upper right atrium was determined using the microwire, which was then removed along with the inner dilator of the micropuncture sheath. A 0.035 inch Amplatz wire was then advanced through the micropuncture sheath into the inferior vena cava under fluoroscopic guidance. Attention was then turned to the right upper chest. A suitable catheter exit site was determined, approximately 3 fingerbreadths inferior to the clavicle. The skin was marked. 1% lidocaine was used to anesthetize a subcutaneous tract extending from the planned catheter exit site to the venotomy at the right lower neck. A stab incision was made on the right upper chest. Subsequently, the catheter was tunneled from the exit site of the right upper chest to the venotomy at the right lower neck. The retention cuff of the catheter was advanced well into the subcutaneous tunnel. The micropuncture sheath was then removed over the wire and the tract was serially dilated. Finally, a 16.5-English peel-away sheath was advanced over the wire under fluoroscopic guidance. The wire and inner dilator of the sheath were removed and the catheter was advanced through the peel-away sheath, which was then broken and removed. The catheter tip was positioned in the upper right atrium. Each catheter lumen showed good bidirectional flow. Each lumen was then packed with 2000 units of heparin. The catheter was secured at the exit site on the right upper chest with monofilament nylon suture. The venotomy at the right lower neck was closed with tissue adhesive. A sterile dressing was applied. The patient tolerated the procedure well without immediate complication. The retention sutures for the right internal jugular temporary hemodialysis catheter were then cut and the catheter was removed in total. Hemostasis was achieved with manual compression and a sterile dressing was applied. Impression: Successful placement of a tunneled dual-lumen hemodialysis catheter (16-English, 19-cm tip-cuff length) by a right internal jugular approach, followed by removal of right internal jugular temporary hemodialysis catheter Signed by: Dr. Bob Ghosh M.D. on 04/18/2019 3:21 PM
[2019-04-18 17:12] LABS: LYMPHOCYTES,BODY FLUID 32 %; MONO/MACROPHG,BODY FLUID 56 %; NEUTROPHILS,BODY FLUID 10 %; OTHER CELLS,BODY FLUID 2 %
[2019-04-18] MEDS: ACETAMINOPHEN 325 MG TAB PO PRN (22:40)
[2019-04-19] VITALS (23 sets, daily range): BP systolic 79–198; BP diastolic 53–115
[2019-04-19] MEDS: DEXTROSE 5% 1,000 ML IV SCH
[2019-04-19] MEDS: ALBUTEROL/IPRATROPIUM 3 ML NEB NEB SCH ×4 (01:00→19:30)
[2019-04-19] MEDS: HEPARIN SOD (PORCINE) 5,000 UNIT/ML VIAL SC SCH ×2 (09:00→20:51)
[2019-04-19] MEDS: PANTOPRAZOLE 40 MG 10ML VIAL IV SCH (09:09)
[2019-04-19] MEDS: CALCIUM CARBONATE 500 MG CHEWABLE TABS PO SCH ×3 (09:09→20:50)
[2019-04-19] MEDS: CALCITRIOL 0.25 MCG CAP PO SCH (09:09)
[2019-04-19] MEDS: NYSTATIN 15 GM POWDER UD BTL TOP SCH ×3 (09:10→17:25)
[2019-04-19] MEDS: MEROPENEM 500MG/ NS 50ML 50 ML IV SCH (09:35)
--- NOTE | 2019-04-19 09:53 | NUR ---
WOUND CARE CONSULTATION: THIS IS A 78 YEAR OLD FEMALE PATIENT ADMITTED TO [facility] FOR PERITONEAL DIALYSIS AND SPONTANEOUS BACTERIAL PERITONITIS. HEAD TO TOE SKIN ASSESSMENT PERFORMED. PATIENT HAS BILATERAL BUTTOCKS AREAS OF DENUDED SKIN FROM INCONTINENCE. PATIENT HAS UPPER BUTTOCKS SKIN IRRITATION NOTED FROM ALLEVYN FOAM ADHESIVE BORDERS, SKIN INTACT. BILATERAL UPPER ARMS HAVE MULTIPLE BRUISES NOTED FROM VENOUS STICKS. PATIENT HAS A LEFT PLANTAR FOOT CALLUS NOTED THAT MEASURES 2X1CM. PATIENT HAS A RIGHT PLANTAR CALLUS THAT MEASURES 0.5X0.5CM. LABS: WBC10.23 ALB1.4 BLOOD CULTURE = NEGATIVE SPUTUM CULTURE = PENDING MEDICATIONS: MEROPENEM VANCOMYCIN RECOMMENDATIONS: -CONTINUE ALTERNATING PRESSURE RELIEF MATTRESS. -CONTINUE BILATERAL HEEL PROTECTORS WITH PILLOW SUSPENSION. -NURSING TO CLEAN BILATERAL BUTTOCKS DENUDED SKIN WITH SOAP AND WATER, PAT DRY, APPLY VENELEX OINTMENT MIXED WITH NYSTATIN POWDER AND LEAVE SPORTS APPAREL INTERNSHIP; PERFORM WOUND CARE BID AND PRN. -STRICT TURN EVERY 2 HOURS AND PRN. THANK YOU FOR THIS WOUND CARE CONSULT. Addendum: 04/19/19 at 1008 by Kristine Padilla RN Amended: Links added.
[2019-04-19] MEDS ORDERED: HEPARIN SOD (PORCINE) 1000 UNIT/ML SDV IV PRN (12:00)
--- NOTE | 2019-04-19 13:36 | NUR ---
Nutrition Intervention Note RD Recommendation(s) for Physician: -Continue current diet as ordered -RD discussed menu options and obtained food preferences -Pt is not interested in any oral nutrition supplements Plan of Care: RD following, monitoring for tolerance and adequacy Nutrition reason for involvement: Follow up RD Assessment (04/19) Visited pt in the room. Renal diet day 2 after extubation. Pt reports that her appetite has declined. RN recorded 50-75% meal intake. No complains of nausea or vomiting. Normal BM. Pt denies any chewing or swallowing issue. Discussed menu options and obtained food preferences. Pt is not interested in any oral nutrition supplements. Will continue to monitor and follow. (04/14) Pt went into cardiac arrest prior to operation on 04/13. Currently intubated and ventilated. HD was completed today. Visited pt in the room. Pt was getting fentanyl and norepinephrine @4mcg/min. Will continue to monitor and follow. (04/09) Chart reviewed. Labs and meds reviewed. 78yo F, who was admitted for peritonitis complicating peritoneal dialysis. Visited pt in the room. Pt reported poor appetite for several days. Pt stated I get sick if I eat too much. PCT recorded 25-50% meal intake since admission. Pt denied any chewing or swallowing difficulty at this time. RD offered oral nutrition supplements but pt refused. Pt stated I dont want anything right now.Unknown weight loss history. Will continue to monitor and follow. Principal Problems/Diagnoses: 1. Third-degree AV block requiring temporary pacemaker. 2. Asystole, cardiac arrest, with return of spontaneous circulation. 3. Secondary bacterial peritonitis. 4. End-stage renal disease previously on peritoneal dialysis, currently undergoing intermittent hemodialysis. PMH: 1. End-stage renal disease on PD 2. Early dementia. 3. Hypertension. 4. Metabolic bone disease. 5. Anemia of chronic disease. GI: abdomen soft and tender Skin: no pressure wound noted Labs: (04/18) reviewed (04/14) BUN 45 H, Creatinine 6.11 H, Glucose 66 L, calcium 6.7 L Meds: protonix, tums, calcitriol Ht: 67in Wt: 142lb; 174.13lb BMI: 22.2kg/m2 IBW: 135lb Malnutrition Evaluation (04/09/2019) The patient does not meet criteria for a specified degree of malnutrition at this time. Will re-evaluate at follow-up as appropriate. Nutrition Prescription (Diet Order): renal diet Estimated Nutritional Needs: Calories: 1950 - 2275kcal (30-35kcal/kg/d) Weight used: CBW Protein: 98 - 130g (1.5-2.0g/kg/d) Weight used: CBW Diet Adequacy: Meeting calorie needs, Not meeting protein needs Diet Education Needs Assessment: Diet education indicated, but patient not appropriate for education at this time. Nutrition Care Level: low Nutrition Diagnosis: No nutrition diagnosis at this time. Goal: Patient will meet 75-100% of estimated needs by follow up Progress: Progressing Interventions: Modified diet Monitoring/Evaluation: Total energy intake, Total protein intake, Weight change, and Modified diet Signed: Brielle Buckley MS, RD, LD
--- NOTE | 2019-04-19 14:16 | NUR ---
SPOKE WITH PT AND STILL OPERATOR BRANDY, STATES LIVES AROUND CORNER FROM [facility] BY TRACIE WEBB W AND TUESDAY AFTERNOONE SLOT. FAXED REQUIRED CLINICALS TO [facility] [phone]
[2019-04-19] MEDS ORDERED: BACITRACIN 50,000 UNIT VIAL ONE (16:03)
[2019-04-19] MEDS ORDERED: MIDAZOLAM HCL 2 MG/2 ML VIAL ONE (16:03)
[2019-04-19] MEDS ORDERED: LIDOCAINE HCL 2% LOCAL 20 ML VIAL ONE (16:04)
[2019-04-19] MEDS ORDERED: SODIUM CHLORIDE 0.9% 1000ML 2,000 ML ONE (16:04)
[2019-04-19] MEDS ORDERED: SODIUM CHLORIDE 0.9% 500ML 500 ML ONE (16:05)
[2019-04-19] MEDS ORDERED: FENTANYL CITRATE/PF 100MCG/2 ML INJ ONE (16:05)
--- NOTE | 2019-04-19 16:29 | Progress Note ---
DATE: 04/19/2019 Cardiology Progress Note SUBJECTIVE: No complaints. Undergoing dialysis today. Tunneled dialysis catheter to right side and left side of neck with temporary pacemaker in place. OBJECTIVE: VITAL SIGNS: Temperature 98 degrees, heart rate 72, respiratory rate 18, blood pressure 165/77, O2 saturation 100% on 2 L/minute nasal cannula. GENERAL: In no acute distress, alert. NECK: No JVD. CHEST: Clear to auscultation. CARDIOVASCULAR: Regular rate and rhythm. Normal S1 and S2. No S3, no S4. ABDOMEN: Soft. Dressings in place. EXTREMITIES: Trace edema. Warm distal extremities. Telemetry revealed paced rhythm. CARDIOVASCULAR MEDICATIONS: Reviewed. P.r.n. atropine, on antibiotics. LABORATORY DATA: White blood cells 10.2, hemoglobin 9.9, platelets 238. INR 1.2. Most recent creatinine 3.9. Sodium 137, potassium 4.3, chloride 102, bicarbonate 24, BUN 23, glucose 77, calcium 7.4. Blood cultures negative x5 days. ASSESSMENT: 1. Third-degree AV block pending transition from temporary to permanent pacemaker implantation prior to discharge. 2. Asystole, cardiac arrest, with return of spontaneous circulation. 3. Secondary bacterial peritonitis for which the patient has been receiving antibiotics now with most recent culture negative x5 days. 4. End-stage renal disease. 5. Status post severe sepsis with septic shock, now off pressors. 6. History of hypertension. 7. Anemia. RECOMMENDATIONS: 1. EP likely to implant permanent device today. 2. Continue antibiotics per ID expertise. 3. Volume optimization ongoing per Nephrology. Blaze Cristina MD AFV/MODL /[id number]
[2019-04-19] MEDS ORDERED: BALSAM PERU/CASTOR OIL 5 GM OINT...G. TP SCH (17:00)
[2019-04-19] MEDS: BALSAM PERU/CASTOR OIL 60 GM OINT...G. TP SCH (17:25)
[2019-04-19] MEDS: ALBUMIN 25% 12.5GM 0.25 GM/ML BTL IV PRN (17:25)
--- NOTE | 2019-04-19 18:25 | Progress Note ---
DATE: 04/19/2019 This is Infectious Disease cross cover for Dr. Nuñez. SUBJECTIVE: The patient is alert and responsive. Her sensorium is clear. She is currently being dialyzed. She is not coughing. No dyspnea at rest. No report of vomiting, no report of diarrhea. No overmedication reaction reported in the past 24 hours. OBJECTIVE: VITAL SIGNS: Her maximum temperature was 98.4 degrees Fahrenheit. She is hemodynamically stable. HEENT: She has no pallor. There is no icterus, no oropharyngeal lesions. NECK: Supple. CHEST: Symmetric. LUNGS: Decreased sounds at the bases. CARDIOVASCULAR: Heart sounds are regular. There is no new murmur. ABDOMEN: Soft. Bowel sounds are present. EXTREMITIES: No acute erythema of extremities. Her dialysis access site is clean. LABORATORY DATA: Her white count is 10.2 from April 18, hemoglobin 9.9, and platelet count 238. Creatinine 3.9 with dialysis. Blood cultures from April 13 are reported negative. On April 18, peritoneal fluid culture shows no growth in 24 hours. IMPRESSION AND PLAN: She is on empiric treatment for peritonitis. She has end-stage renal disease. She is currently being dialyzed. I suggest continue current management. Monitor temperature, CBC, and renal function. Continue order supportive care. MD AGUSTÍN Garcia/MODL /[id number]
--- NOTE | 2019-04-19 18:30 | NUR ---
Patient to Room 196 via bed. VSS, patient is lethargic. Son, Kendell, updated on patient condition.
[2019-04-19] MEDS: ONDANSETRON HCL 4 MG ORAL DISINTEGRATING TAB PO PRN (20:51)
[2019-04-20] VITALS (14 sets, daily range): BP systolic 150–183; BP diastolic 70–88
[2019-04-20] MEDS: ALBUTEROL/IPRATROPIUM 3 ML NEB NEB SCH ×4 (00:30→20:30)
[2019-04-20] MEDS: HEPARIN SOD (PORCINE) 5,000 UNIT/ML VIAL SC SCH ×2 (08:32→20:31)
[2019-04-20] MEDS: NYSTATIN 15 GM POWDER UD BTL TOP SCH ×4 (09:00→17:00)
[2019-04-20] MEDS: BALSAM PERU/CASTOR OIL 60 GM OINT...G. TP SCH ×2 (09:00→17:00)
[2019-04-20] MEDS: CALCITRIOL 0.25 MCG CAP PO SCH (09:00)
[2019-04-20] MEDS: CALCIUM CARBONATE 500 MG CHEWABLE TABS PO SCH ×3 (09:00→20:29)
--- NOTE | 2019-04-20 10:06 | NUR ---
RCD PT FROM ICU BY BED PT IS ALERT AND ORIENTED VITALS CHECKED PT RESTING ON BED NO SIGNS OF ANY DISTRESS NOTED FAMILY AT BED SIDE BED LOW AND LOCKED CALL LIGHT IN REACH
--- NOTE | 2019-04-20 12:14 | Progress Note ---
DATE: 04/20/2019 SUBJECTIVE: No new complaints. OBJECTIVE: VITAL SIGNS: Temperature 97.7, heart rate 90, respiratory rate 20, blood pressure 154/76, and O2 saturation 100% on 2 L/minute nasal cannula. GENERAL: In no acute distress. Alert. NECK: No JVD. CHEST: Clear to auscultation. CARDIOVASCULAR: Regular rate and rhythm. Normal S1, S2. ABDOMEN: Soft. EXTREMITIES: No edema. Permanent pacemaker implant to left anterior chest. Dressings in place. MEDICATIONS: Cardiovascular medication reviewed. STUDIES: Reviewed. No lab work for today. Telemetry in sinus rhythm with paced beats. ASSESSMENT: 1. Third-degree AV block, status post permanent pacemaker implant. 2. Status post asystole, sudden cardiac with return of spontaneous circulation. 3. Secondary bacterial peritonitis, on antibiotics, recent blood culture negative x5 days plus. 4. End-stage renal disease. 5. Status post severe sepsis with septic shock. 6. History of hypertension. 7. Anemia. RECOMMENDATIONS: 1. Blood pressure continues to be elevated. We will add antihypertensives. 2. Status post permanent pacemaker implant. Continue antibiotics per ID. Given recent infection, however, the patient has had negative cultures recently. 3. Outpatient followup on discharge, for now initiated rehab evaluation. Blaze Cristina MD AFRafael/MODL /[id number]
--- NOTE | 2019-04-20 12:41 | NUR ---
FAXED REQUESTED CLINICALS FROM [facility] TO [facility]
--- NOTE | 2019-04-20 18:42 | NUR ---
PT RESTING ON BED BED SIDE REPORT GIVEN TO ONCOMING NURSE
--- NOTE | 2019-04-20 20:56 | Progress Note ---
DATE: 04/20/2019 This is Infectious Disease cross covering for Dr. Nuñez. SUBJECTIVE: I met the patient resting quietly. She is in no acute distress. She has no respiratory, gastrointestinal, or genitourinary complaints. No adverse medication reaction reported. OBJECTIVE: VITAL SIGNS: In the past 24 hours, her maximum temperature was 98.6 degrees Fahrenheit. She is hemodynamically stable. HEENT: She has no gross pallor, no obvious icterus, and no oropharyngeal lesions. NECK: Supple. CHEST: Symmetric. There is a dialysis catheter in the right chest. The site is clean. RESPIRATORY: The lung sounds fairly clear. HEART: Sounds are regular without any significant murmur. ABDOMEN: Soft. Bowel sounds are present. No significant tenderness currently. A peritoneal dialysis catheter still in place. EXTREMITIES: No acute erythema of her extremities. LABORATORY DATA: Her white count on April 18 was 10.2, hemoglobin 9.9, and platelet count 238. Serum creatinine 3.9. fluid from April 18 reported negative. Blood cultures from April 13 are negative. There is a sputum culture pending from April 18. IMPRESSION AND PLAN: She has been on treatment for peritonitis. Peritoneal dialysis catheter is still in place. She has a hemodialysis catheter. She received hemodialysis yesterday. She is afebrile. She has no significant leukocytosis. She has end-stage renal disease. I suggest continue current management. Followup on her cultures. Continue other supportive care. MD AGUSTÍN Garcia/CHUCKIEL /[id number]
[2019-04-20] MEDS: ONDANSETRON HCL 4 MG ORAL DISINTEGRATING TAB PO PRN (23:35)
[2019-04-21] VITALS (9 sets, daily range): BP systolic 139–188; BP diastolic 69–96
[2019-04-21] MEDS: ALBUTEROL/IPRATROPIUM 3 ML NEB NEB SCH ×4 (02:05→19:25)
--- NOTE | 2019-04-21 07:13 | NUR ---
report given to Gale Anand; made aware of HD due today,
--- NOTE | 2019-04-21 07:30 | NUR ---
Received patient this morning an alert and responsive, in bed, RIJ in place for dialysis, call light within reach and will monitor
--- NOTE | 2019-04-21 08:34 | NUR ---
Rounds by Dr. Valdez and stat orders for CMP and CBC, patient to have dialysis today, call to dialysis center and confirmed patient is on schedule for today.
[2019-04-21] MEDS: BALSAM PERU/CASTOR OIL 60 GM OINT...G. TP SCH ×2 (09:00→17:32)
[2019-04-21] MEDS: CALCITRIOL 0.25 MCG CAP PO SCH (09:18)
[2019-04-21] MEDS: CALCIUM CARBONATE 500 MG CHEWABLE TABS PO SCH ×3 (09:18→21:35)
[2019-04-21] MEDS: AMLODIPINE BESYLATE 5 MG TAB PO SCH ×2 (09:18→17:40)
[2019-04-21] MEDS: HEPARIN SOD (PORCINE) 5,000 UNIT/ML VIAL SC SCH ×2 (09:30→22:07)
--- NOTE | 2019-04-21 09:30 | NUR ---
Patient started on dialysis at this time.
[2019-04-21] MEDS: SERTRALINE HCL 50 MG TAB PO SCH (10:00)
[2019-04-21] MEDS: ACETAMINOPHEN 325 MG TAB PO PRN (11:03)
[2019-04-21] MEDS ORDERED: ACETAMINOPHEN 325 MG TAB PO PRN (11:15)
--- NOTE | 2019-04-21 11:16 | NUR ---
Patient experiencing some nausea and generalized discomfort with dialysis and medicated as ordered
[2019-04-21 12:11] LABS: BASOPHILS % 0.3 % (0.0-1.0); EOSINOPHILS # (AUTO) 0.4 (0.0-0.4); EOSINOPHILS % 3.1 % (0.0-6.0); HEMATOCRIT 30.5 % (34.2-44.1); HEMOGLOBIN 9.5 g/dL (12.0-16.0); LYMPHOCYTES # (AUTO) 0.8 (1.0-3.2); LYMPHOCYTES % 6.7 % (18.0-39.1); MEAN CORPUSCULAR HEMOGLOBIN 30.4 pg (28-32); MEAN CORPUSCULAR HGB CONC 31.1 g/dL (31-35); MEAN CORPUSCULAR VOLUME 97.8 fL (81-99); MONOCYTES # (AUTO) 0.7 (0.2-0.8); MONOCYTES % 5.9 % (4.4-11.3); NEUTROPHILS # (AUTO) 9.2 (2.1-6.9); NEUTROPHILS % 82.7 % (38.7-80.0); PLATELET COUNT 254 x10e3/uL (140-360); RED BLOOD COUNT 3.12 x10e6/uL (3.6-5.1); RED CELL DISTRIBUTION WIDTH 14.8 % (11.7-14.4)
[2019-04-21 12:27] LABS: ALBUMIN 1.7 g/dL (3.5-5.0); ALBUMIN/GLOBULIN RATIO 0.6 (0.8-2.0); ANION GAP 15.5 mmol/L (8-16); CALCIUM 7.6 mg/dL (8.4-10.2); CREATININE, SERUM 4.76 mg/dL (0.57-1.11); POTASSIUM 4.5 mmol/L (3.5-5.1)
[2019-04-21] MEDS: VANCOMYCIN 1GM/NS 250 ML 250 ML IV SCH (12:30)
--- NOTE | 2019-04-21 13:30 | NUR ---
Vancomycin given during dialysis and confirmed administration by Dr. Tucker the ID
--- NOTE | 2019-04-21 13:34 | NUR ---
Dialysis completed at this time and 2.5 liters extracted. BP 128/65 and patient is comfortable.
[2019-04-21] MEDS: NYSTATIN 15 GM POWDER UD BTL TOP SCH ×2 (14:00→17:32)
[2019-04-21] MEDS ORDERED: CLONIDINE HCL 0.1 MG TAB PO PRN (14:00)
--- NOTE | 2019-04-21 14:02 | NUR ---
Patient alert and responsive, call from patient's son and stated patient has been depressed and made statements of killing her self in the past, has attempted to bring for psych eval but unsuccessful. Patient has not expressed intent to kill herself during this time of care but psych has been consulted for eval and being called at this time.
--- NOTE | 2019-04-21 14:16 | NUR ---
Rounds by Dr. Jara and confirms the peritoneal dialysis catheter will be taken out but did not confirm when yet. Patient also seen by attending and orders in place for KUB to r/o constipation.
--- NOTE | 2019-04-21 14:39 | Progress Note ---
DATE: 04/21/2019 This is Infectious Disease cross covering for Dr. Nuñez. SUBJECTIVE: The patient is awake and responsive. She is currently complaining of abdominal discomfort. She is being dialyzed. There is no respiratory or genitourinary complaints. OBJECTIVE: VITAL SIGNS: In the past 24 hours, she was afebrile and hemodynamically stable. HEENT: She has no gross pallor. No obvious icterus. No oropharyngeal lesions. NECK: Supple. CHEST: Symmetric. LUNGS: Clear. HEART: Sounds are regular. There is no new murmur. ABDOMEN: Soft. Dialysis catheter is in place. Bowel sounds are present. EXTREMITIES: No acute erythema of the extremities. LABORATORY DATA: The computer system is currently down. IMPRESSION AND PLAN: She has been on treatment for peritonitis. She has a peritoneal dialysis catheter that is still in place. She is receiving hemodialysis. She is still complaining of abdominal discomfort. There are no recent significant positive cultures. I suggest continue current antimicrobial therapy. Check vancomycin level just before dialysis. Monitor temperature, CBC, and renal function. Continue other supportive care. MD AGUSTÍN Garcia/MODL /[id number]
--- NOTE | 2019-04-21 16:20 | Diagnostic Imaging Report ---
Exam: KUB - 2 views Clinical History: Evaluate for constipation. Comparison: CT abdomen/pelvis 04/12/2019. Findings: There is a moderate amount of stool in the proximal colon. Nonobstructive bowel gas pattern. Peritoneal dialysis catheter overlies the pelvis. No acute osseous abnormality. Impression: No evidence of bowel obstruction. Moderate amount of stool in the proximal colon. Signed by: Dr. Mu Antonio MD on 04/21/2019 4:17 PM
--- NOTE | 2019-04-21 17:48 | NUR ---
no tx due to HD, f/u on tuesday Addendum: 04/21/19 at 1749 by Oliver Pereira PTA Amended: Links added.
[2019-04-22] VITALS (9 sets, daily range): BP systolic 140–185; BP diastolic 56–81
[2019-04-22] MEDS: ALBUTEROL/IPRATROPIUM 3 ML NEB NEB SCH ×4 (01:10→19:45)
[2019-04-22 05:20] LABS: BASOPHILS % 0.4 % (0.0-1.0); EOSINOPHILS # (AUTO) 0.4 (0.0-0.4); EOSINOPHILS % 3.8 % (0.0-6.0); HEMATOCRIT 31.2 % (34.2-44.1); HEMOGLOBIN 9.7 g/dL (12.0-16.0); LYMPHOCYTES # (AUTO) 0.9 (1.0-3.2); LYMPHOCYTES % 9.4 % (18.0-39.1); MEAN CORPUSCULAR HEMOGLOBIN 30.2 pg (28-32); MEAN CORPUSCULAR HGB CONC 31.1 g/dL (31-35); MEAN CORPUSCULAR VOLUME 97.2 fL (81-99); MONOCYTES # (AUTO) 0.7 (0.2-0.8); MONOCYTES % 7.4 % (4.4-11.3); NEUTROPHILS # (AUTO) 7.5 (2.1-6.9); NEUTROPHILS % 78.4 % (38.7-80.0); PLATELET COUNT 141 x10e3/uL (140-360); RED BLOOD COUNT 3.21 x10e6/uL (3.6-5.1); RED CELL DISTRIBUTION WIDTH 14.6 % (11.7-14.4)
[2019-04-22 05:38] LABS: ANION GAP 15.4 mmol/L (8-16); CALCIUM 7.7 mg/dL (8.4-10.2); CREATININE, SERUM 3.71 mg/dL (0.57-1.11); POTASSIUM 4.4 mmol/L (3.5-5.1)
--- NOTE | 2019-04-22 07:30 | NUR ---
Received patient this morning and alert and responsive, call light within reach, bed in low locked position, will monitor.
[2019-04-22] MEDS: NYSTATIN 15 GM POWDER UD BTL TOP SCH ×2 (09:00→16:45)
[2019-04-22] MEDS: BALSAM PERU/CASTOR OIL 60 GM OINT...G. TP SCH ×2 (09:00→16:45)
[2019-04-22] MEDS: CALCITRIOL 0.25 MCG CAP PO SCH (09:18)
[2019-04-22] MEDS: AMLODIPINE BESYLATE 5 MG TAB PO SCH ×2 (09:18→16:44)
[2019-04-22] MEDS: HEPARIN SOD (PORCINE) 5,000 UNIT/ML VIAL SC SCH (09:18)
[2019-04-22] MEDS: SERTRALINE HCL 50 MG TAB PO SCH (09:18)
[2019-04-22] MEDS: CALCIUM CARBONATE 500 MG CHEWABLE TABS PO SCH ×4 (09:18→21:35)
--- NOTE | 2019-04-22 09:50 | NUR ---
Visit made by the Spiritual Care Department Pastoral Visitor, Cal Blackwell. PV provided pastoral presence, hospitality, and supportive listening. Pastoral Visitor informed pt/family of the scope of [employer] and availability. EDMUND MANUEL Manager Of Tax Spiritual Care Department O: [phone] Pager: [phone] ([phone] number calling from)
[2019-04-22] MEDS ORDERED: LACTULOSE SYRUP 20 GM/30 ML UDC PO NR (12:30)
--- NOTE | 2019-04-22 18:00 | NUR ---
Patient alert and responsive, wound care provided to sacrum, no distress, no c/o pains, appetite fair, call light within reach. Tolerated Lactulose 60mg and no BM yet at this time, will monitor,
--- NOTE | 2019-04-22 18:09 | Progress Note ---
DATE: 04/22/2019 Cardiology Progress Note SUBJECTIVE: Ms. Mclaughlin denies any chest discomfort or shortness of breath. Today, she is progressing and is transferred out of the ICU to telemetry. OBJECTIVE: VITAL SIGNS: Reviewed. Temperature 98.6, heart rate 88, respiratory rate 17, blood pressure 163/81, O2 saturation 93%. GENERAL: In no acute distress, alert. NECK: No JVD. CHEST: Clear to auscultation. CARDIOVASCULAR: Regular rate and rhythm. Normal S1 and S2. ABDOMEN: Soft, nontender. EXTREMITIES: No edema. covered with dressings, looks okay overall. Warm extremities. CARDIOVASCULAR MEDICATIONS: Reviewed. On amlodipine 5 mg twice daily, clonidine 0.1 mg every 4 hours, vancomycin antibiotic yu. STUDIES: Reviewed. Sodium 142, potassium 4.4, chloride 105, bicarbonate 26, BUN 19, creatinine 3.7, glucose 78. White blood cells 9.6, hemoglobin 9.7, platelets 141. INR 1.2. PT 16.1, PTT 57.5, AST 13, ALT 6, total bilirubin 0.5, alkaline phosphatase 92. ASSESSMENT: 1. A 78-year-old woman presents with third-degree AV block, status post permanent pacemaker placement. 2. Secondary bacterial peritonitis for which antibiotic therapy has been continued by ID. 3. End-stage renal disease. 4. Hypertension. 5. Anemia. RECOMMENDATIONS: 1. Monitor blood pressure over the next 48 hours and consider further up titration of antihypertensives depending on these. 2. Continue antibiotics as per ID. 3. Monitor pacemaker site. Blaze Cristina MD AFRafael/MODLeeann /[id number]
--- NOTE | 2019-04-22 19:23 | NUR ---
Bedside report walking rounds complete. Pt resting in bed and in no apparent distress. Pt on O2 and tele. All safety measures ensured, bed alarm on, and pt call pratt near.
[2019-04-23] VITALS (7 sets, daily range): BP systolic 117–169; BP diastolic 58–78
[2019-04-23] MEDS: ALBUTEROL/IPRATROPIUM 3 ML NEB NEB SCH ×4 (02:00→19:50)
[2019-04-23 05:49] LABS: BASOPHILS % 0.4 % (0.0-1.0); EOSINOPHILS # (AUTO) 0.4 (0.0-0.4); EOSINOPHILS % 4.1 % (0.0-6.0); HEMATOCRIT 28.5 % (34.2-44.1); HEMOGLOBIN 8.8 g/dL (12.0-16.0); LYMPHOCYTES # (AUTO) 0.9 (1.0-3.2); LYMPHOCYTES % 9.8 % (18.0-39.1); MEAN CORPUSCULAR HEMOGLOBIN 29.9 pg (28-32); MEAN CORPUSCULAR HGB CONC 30.9 g/dL (31-35); MEAN CORPUSCULAR VOLUME 96.9 fL (81-99); MONOCYTES # (AUTO) 0.8 (0.2-0.8); MONOCYTES % 8.5 % (4.4-11.3); NEUTROPHILS # (AUTO) 7.1 (2.1-6.9); NEUTROPHILS % 76.2 % (38.7-80.0); PLATELET COUNT 173 x10e3/uL (140-360); RED BLOOD COUNT 2.94 x10e6/uL (3.6-5.1); RED CELL DISTRIBUTION WIDTH 14.8 % (11.7-14.4)
[2019-04-23 06:12] LABS: ANION GAP 13.2 mmol/L (8-16); CALCIUM 7.9 mg/dL (8.4-10.2); CREATININE, SERUM 4.68 mg/dL (0.57-1.11); POTASSIUM 4.2 mmol/L (3.5-5.1)
--- NOTE | 2019-04-23 07:12 | NUR ---
Beside report, walking rounds complete with day shift RN.
--- NOTE | 2019-04-23 08:17 | NUR ---
ON PHONE WITH [facility] ADMISSION, THIS PT ASSIGNED TO [facility] OFFICE, [place] STATES THAT SHE IS ALREADY ASSIGNED TO THAT CLINIC THROUGH HER PD, SHE STATES THEY CANCELLED THE REFERRAL AND WE WILL JUST NEED TO CONTACT THAT FACILITY [phone] TO GET CHAIR TIME.
[2019-04-23] MEDS: NYSTATIN 15 GM POWDER UD BTL TOP SCH ×2 (09:00→17:00)
[2019-04-23] MEDS: BALSAM PERU/CASTOR OIL 60 GM OINT...G. TP SCH ×2 (09:00→17:00)
[2019-04-23] MEDS: CALCIUM CARBONATE 500 MG CHEWABLE TABS PO SCH ×3 (09:15→21:28)
[2019-04-23] MEDS: SERTRALINE HCL 50 MG TAB PO SCH ×2 (09:15→21:31)
[2019-04-23] MEDS: AMLODIPINE BESYLATE 5 MG TAB PO SCH ×2 (09:15→17:30)
[2019-04-23] MEDS: CALCITRIOL 0.25 MCG CAP PO SCH (09:15)
--- NOTE | 2019-04-23 10:31 | Progress Note ---
DATE: 04/23/2019 Cardiology Progress Note SUBJECTIVE: Giselle is drinking coffee and having breakfast today. She denies any chest discomfort or shortness of breath and feels better overall. OBJECTIVE: VITAL SIGNS: Temperature 96.2, heart rate 72, blood pressure 169/78, respiratory rate 17, O2 saturation 99%. GENERAL: In no acute distress, alert. NECK: No JVD. CHEST: Clear to auscultation. CARDIOVASCULAR: Regular rate and rhythm. Normal S1, S2. No S3 or S4. ABDOMEN: Soft. EXTREMITIES: Trace edema. Dialysis catheter in place. Pacemaker pocket site covered with dressings. MEDICATIONS: Cardiovascular medications reviewed. Amlodipine 5 mg b.i.d., clonidine 0.1 mg every 4 hours. LABORATORY DATA: Sodium 142, potassium 4.2, chloride 106, bicarbonate 27, BUN 27, creatinine 4.6, glucose 87. White blood cells 9.2, hemoglobin 8.8, platelets 173. INR 1.2. PT 16.1, PTT 57.5, AST 13, ALT 6, alkaline phosphatase 92, total bilirubin 0.5. ASSESSMENT: 1. A 78-year-old woman presents with third-degree AV block, now status post permanent pacemaker implant. 2. Hypertension. 3. Anemia. 4. Secondary bacterial peritonitis, status post antibiotic, being monitored by ID with most recent blood cultures negative. RECOMMENDATIONS: Continue further evaluation for rehab needs and continue otherwise antihypertensives. Blood pressure overall is still uncontrolled in spite of current regimen including p.r.n. clonidine and amlodipine. If persists in the next 24 hours after recent initiation of amlodipine, we will further up titrate antihypertensives. MD MARTHA Ramirez/LOKI /[id number]
--- NOTE | 2019-04-23 11:05 | NUR ---
SPOKE WITH FACILITY SHE WILL HAVE A T, TH AND SAT CHAIR TIME AT 330, SPOKE WITH PATIENT PER DOCTOR REQUEST SPOKE WITH PATIENT WHOM IS IN AGREEMENT TO GO TO [facility], SIGNED CHOICE AND FAXED CLINICALS TO [phone] NUMBER TO FACILITY [phone]
--- NOTE | 2019-04-23 11:08 | NUR ---
SPOKE WITH NURSE TO SEE IF PD CATH CAN BE TAKEN OUT TODAY, SHE WILL CHECK AND LET ME KNOW.
--- NOTE | 2019-04-23 14:16 | NUR ---
COMPLETED RTF AND PASRR AND FILED IN CHART AND PACKET FOR COMPLETION OF TRANSFER.
--- NOTE | 2019-04-23 15:42 | NUR ---
Spoke to the OR scheduling and they said Dr. Fernandes posted patient for PD catheter removal on Tuesday04/25/19 for 0700. Case mgmt notified. Dr. Valdez notified.
--- NOTE | 2019-04-23 18:55 | Consultation ---
DATE OF CONSULTATION: 04/23/2019 Psychiatric consultation. The patient is evaluated and events noted. REASON FOR CONSULTATION: To evaluate the patient's depression. HISTORY OF PRESENT ILLNESS: The patient is a 78-year-old female, admitted to the hospital for peritoneal dialysis. Psychiatric consultation is called to evaluate the patient's mood. As per medical record, the patient has history of dementia, hypertension, metabolic bone disease, anemia, and end-stage renal disease. Upon evaluation today, the patient is found to be lying on the bed in the room. She is alert, awake, and oriented to situation. She is thin appearing. The patient is calm, pleasant, cooperative, sometimes hard of hearing. Grossly her memory appears to be intact. She reports some depression and anxiety due to her health and also recent passing of her in November of this year, they have for 52 years. According to the patient, she complained of poor appetite and claims that she sleeps all the time. She denies any suicidal or homicidal ideation. She claims that intermittently she does have thoughts of passive wishes. She is not agitated or combative at this time. PAST PSYCHIATRIC HISTORY: The patient denies past psychiatric history. She denies past suicide attempts. She denies alcohol or drug use. FAMILY HISTORY: Denies. SOCIAL HISTORY: The patient states she lives alone. MENTAL STATUS EXAM: The patient is elderly female. She is alert, awake, and oriented to situation. Her mood is depressed and anxious. She denies any suicidal or homicidal ideation. She denies any hallucination. Thought process is concrete. No delusion elicited. Insight and judgment are fair. Memory appears to be grossly intact. CURRENT MEDICATIONS: 1. Albuterol/ipratropium. 2. Norvasc. 3. Zoloft 50 mg p.o. daily. 4. Calcium carbonate. 5. Calcitriol. 6. Clonidine. 7. Nystatin. 8. Vancomycin. 9. Tylenol. 10. Zofran. 11. Albumin. 12. Acetaminophen. 13. Heparin. 14. Sodium chloride. 15. Dextrose. CURRENT LABORATORY DATA: WBCs 9.29, RBCs 2.94, hemoglobin 8.8, hematocrit 28.5, and platelets 173. Sodium 142, potassium 4.2, chloride 106, CO2 is 27, BUN 27, and creatinine 4.68. AST 13 and ALT 6. ASSESSMENT: Major depressive disorder, single episode, moderate. PLAN: 1. Discontinue Zoloft 50 mg p.o. daily. 2. Add Zoloft 75 mg p.o. at bedtime. 3. Monitor for mood. 4. Supportive therapy. Dictated by Debbi Ray PA-C Lucrecia Mcmillan MD QTV/MODL /[id number]
--- NOTE | 2019-04-23 19:07 | NUR ---
Notified Corby that patient needs hemodialysis tomorrow 04/24/19
[2019-04-23] MEDS: ONDANSETRON HCL 4 MG ORAL DISINTEGRATING TAB PO PRN (21:33)
[2019-04-24] VITALS: BP 159/76
[2019-04-24] MEDS: ALBUTEROL/IPRATROPIUM 3 ML NEB NEB SCH ×4 (00:30→19:15)
[2019-04-24 04:00] VITALS: BP 165/77
--- NOTE | 2019-04-24 07:07 | NUR ---
report and walking rounds with Fabiola SIFUENTES, bed low and locked, iv intact
[2019-04-24 07:53] VITALS: BP 133/70
[2019-04-24] MEDS: CALCIUM CARBONATE 500 MG CHEWABLE TABS PO SCH ×3 (09:00→21:36)
[2019-04-24] MEDS: NYSTATIN 15 GM POWDER UD BTL TOP SCH ×2 (09:00→17:00)
[2019-04-24] MEDS: BALSAM PERU/CASTOR OIL 60 GM OINT...G. TP SCH ×2 (09:00→17:00)
[2019-04-24] MEDS: AMLODIPINE BESYLATE 5 MG TAB PO SCH ×2 (09:00→17:45)
[2019-04-24 09:04] LABS: BASOPHILS % 0.3 % (0.0-1.0); EOSINOPHILS # (AUTO) 0.3 (0.0-0.4); EOSINOPHILS % 3.2 % (0.0-6.0); HEMOGLOBIN 8.6 g/dL (12.0-16.0); LYMPHOCYTES # (AUTO) 0.9 (1.0-3.2); MEAN CORPUSCULAR HEMOGLOBIN 30.3 pg (28-32); MEAN CORPUSCULAR HGB CONC 30.7 g/dL (31-35); MEAN CORPUSCULAR VOLUME 98.6 fL (81-99); MONOCYTES # (AUTO) 0.5 (0.2-0.8); MONOCYTES % 6.1 % (4.4-11.3); NEUTROPHILS % 79.5 % (38.7-80.0); PLATELET COUNT 193 x10e3/uL (140-360); RED BLOOD COUNT 2.84 x10e6/uL (3.6-5.1); RED CELL DISTRIBUTION WIDTH 14.9 % (11.7-14.4)
[2019-04-24 09:28] LABS: ANION GAP 14.7 mmol/L (8-16); CALCIUM 7.7 mg/dL (8.4-10.2); CREATININE, SERUM 5.61 mg/dL (0.57-1.11); POTASSIUM 4.7 mmol/L (3.5-5.1)
[2019-04-24] MEDS ORDERED: LACTULOSE SYRUP 20 GM/30 ML UDC PO ONE (11:30)
[2019-04-24 11:48] VITALS: BP 130/64
--- NOTE | 2019-04-24 14:10 | NUR ---
Physical therapy at bedside. Patient does not want to work with physical therapy at this time. She states, "later". Patient was encouraged by RN, director process, and PT to participate in PT and the risks of continuing to stay in bed. Patient continues to refuse. Patient does not want to sit up in chair either.
[2019-04-24] MEDS: VANCOMYCIN 1GM/NS 250 ML 250 ML IV SCH (14:25)
[2019-04-24 15:26] VITALS: BP 142/67
--- NOTE | 2019-04-24 17:04 | Progress Note ---
DATE: 04/24/2019 Cardiology Progress Note SUBJECTIVE: No complaints. OBJECTIVE: VITAL SIGNS: Temperature 96 degrees, heart rate 76, respiratory rate 16, blood pressure 142/67, O2 saturation 96% on 2 L/minute nasal cannula. GENERAL: In no acute distress, alert. NECK: No JVD. CHEST: Clear to auscultation. CARDIOVASCULAR: Regular rate and rhythm. Normal S1 and S2. No S3 or S4. Systolic ejection murmur 1/6. ABDOMEN: Soft, nontender. EXTREMITIES: Trace edema. Warm distal extremities. SKIN: With pacemaker pocket site covered with dressings. CARDIOVASCULAR MEDICATIONS: Reviewed. Vancomycin, clonidine 0.1 mg every 4 hours p.r.n., amlodipine 5 mg every 12 hours. STUDIES: White blood cells 8.8, hemoglobin 8.6, platelets 193. Sodium 140, potassium 4.7, chloride 103, bicarbonate 27, BUN 36, creatinine 5.6, glucose 78, calcium 7.7, random vancomycin 25. PT 16, INR 1.2. PTT 57.5. Blood culture negative x5 days. TELEMETRY: A sensed V paced rhythm. ASSESSMENT: 1. A 78-year-old woman with third-degree AV block status post permanent pacemaker implantation. 2. Hypertension. 3. Anemia. 4. Secondary bacterial peritonitis status post negative blood cultures on antibiotics followed by ID. 5. Continue current cardiovascular medications. 6. Blood pressure improving with systolic blood pressure 130s to 140s. 7. Monitor closely for any signs of recurrent infection. 8. Volume status optimization per Nephrology. MD MARTHA Ramirez/LOKI /[id number]
[2019-04-24] MEDS: CALCITRIOL 0.25 MCG CAP PO SCH (17:45)
[2019-04-24 20:00] VITALS: BP_SYST 148; BP_SYST 157; BP_DIAS 65; BP_DIAS 76
[2019-04-24] MEDS: SERTRALINE HCL 50 MG TAB PO SCH (21:36)
--- NOTE | 2019-04-24 21:45 | NUR ---
OBTAINED CONSENT FORM FOR REMOVAL OF PD CATHETER
[2019-04-25] VITALS: BP 171/75
[2019-04-25 04:00] VITALS: BP 160/74
[2019-04-25] MEDS: ALBUTEROL/IPRATROPIUM 3 ML NEB NEB SCH ×2 (06:30)
[2019-04-25] MEDS ORDERED: BUPIVACAINE 0.25%/EPI 30ML SDV INJ ONE (06:31)
--- NOTE | 2019-04-25 06:40 | NUR ---
PATIENT IS OFF UNIT FOR SX
[2019-04-25] MEDS ORDERED: SODIUM CHLORIDE 0.9% 500ML 500 ML ONE (06:48)
--- NOTE | 2019-04-25 07:00 | NUR ---
RCD REPORT FROM THE NIGHT NURSE PT WENT TO PROCEDURE
[2019-04-25] MEDS ORDERED: LIDOCAINE HCL 1% LOCAL INJ 20 ML VIAL ONE (07:16)
[2019-04-25] MEDS ORDERED: TRAMADOL/APAP 37.5MG-325MG TAB PO PRN (07:30)
--- NOTE | 2019-04-25 08:05 | NUR ---
PT BACK AFTER PROCEDURE PT IS ALERT AND ORIENTED VITALS CHECKED NO SIGNS OF BLEEDING ON THE PD REMOVAL SITE BED LOW AND LOCKED CALL LIGHT IN REACH
[2019-04-25 08:19] VITALS: BP 142/70
[2019-04-25] MEDS: AMLODIPINE BESYLATE 5 MG TAB PO SCH ×2 (09:00→15:56)
[2019-04-25] MEDS: CALCITRIOL 0.25 MCG CAP PO SCH (09:00)
[2019-04-25] MEDS: CALCIUM CARBONATE 500 MG CHEWABLE TABS PO SCH ×2 (09:00→15:00)
[2019-04-25] MEDS: BALSAM PERU/CASTOR OIL 60 GM OINT...G. TP SCH ×2 (09:00→15:56)
[2019-04-25] MEDS: NYSTATIN 15 GM POWDER UD BTL TOP SCH ×2 (09:00→15:56)
[2019-04-25 09:04] VITALS: BP 142/70
[2019-04-25] MEDS ORDERED: ALBUTEROL/IPRATROPIUM 3 ML NEB NEB PRN (11:00)
[2019-04-25 11:46] VITALS: BP 141/68
--- NOTE | 2019-04-25 13:28 | Operative Report ---
DATE OF PROCEDURE: 04/25/2019 SURGEON: Bob Fernandes MD PREOPERATIVE DIAGNOSIS: Infected peritoneal dialysis catheter. POSTOPERATIVE DIAGNOSIS: Infected peritoneal dialysis catheter. PROCEDURE: Removal of tunneled peritoneal dialysis catheter. [employer] TALEO MANAGER: None. ANESTHESIA: Local with intravenous sedation. INDICATIONS AND FINDINGS: The patient is a 78-year-old female, who was admitted with abdominal pain with primary peritonitis, who has peritoneal dialysis catheter surgery. The catheter was removed intact. TECHNIQUE: After adequate intravenous sedation with the patient in supine position, the abdomen was prepped and draped in a sterile fashion with ChloraPrep solution. The skin and subcutaneous tissue in the area of the catheter were infiltrated with 1% lidocaine without epinephrine. Incision was made and the catheter was followed in the subcutaneous tissue. The first cuff was freed from the subcutaneous tissue. The catheter was then followed deeper down to the fascia and the fascia was opened and the second cuff, which was above the peritoneum was also freed from the surrounding tissues and then the catheter was removed intact. Hemostasis was seen to be adequate. The fascia was closed with [id number] suture of 0 Vicryl. The wound was irrigated with saline. Skin was closed with toro. Sterile dressing was applied. The patient tolerated the procedure well. Estimated blood loss was less than 5 mL. There were no complications. All counts were correct and the patient was taken to the recovery room in satisfactory condition. Bob Fernandes MD DWG/MODL /[id number]
[2019-04-25] MEDS ORDERED: MIDAZOLAM HCL 2 MG/2 ML VIAL ONE (14:25)
[2019-04-25] MEDS ORDERED: FENTANYL CITRATE/PF 100MCG/2 ML INJ ONE (14:25)
[2019-04-25] MEDS ORDERED: KETAMINE HCL INJ 50 MG/ML 10 ML VIAL ONE (14:25)
--- NOTE | 2019-04-25 14:30 | NUR ---
SON REQUESTED TO HIS MOTHER NEED CONSULTATION WITH NEUROLOGIST PAGEHeraclio AND NOTIFIED DR PERLA HE SAID SHE GOT THE ROOM AT [facility] IF SHE NEEDED THE NEUROLOGY CONSULTATION CAN BE IN OUTPATIENT BASIS
--- NOTE | 2019-04-25 14:43 | NUR ---
PT ACCEPTED TO TO [address] UNDER DR MAGI ROCA, CALLED NURSES ST[facility] AND GAVE INFORMATION TO COMPLETE TRANSFER
--- NOTE | 2019-04-25 14:49 | NUR ---
IMM letter delivered and explained to pt and family at bedside. Pt verbalized understanding. Signed copy placed in chart. Copy to pt's transition of care folder. Informed pt of acceptance at [facility]
[2019-04-25] MEDS ORDERED: PROPOFOL IV EMULSION 10 MG/ML 20 ML VIAL ONE (14:57)
--- NOTE | 2019-04-25 15:14 | Discharge Summary ---
PRIMARY CARE DOCTOR: Dr. Lizzeth Luevano. FINAL DIAGNOSIS: Peritonitis due to peritoneal dialysis catheter. SECONDARY DIAGNOSES: 1. Cardiac arrest due to complete heart block status post permanent pacemaker. 2. Acute respiratory failure, resolved. 3. End-stage renal disease. 4. Chronic obstructive pulmonary disease. 5. Hypertension. 6. History of deep venous thrombosis secondary to lupus anticoagulant. CONSULTANTS: 1. Dr. Fernandes, Surgery. 2. Dr. Fuchs, EP Cardiology. 3. Dr. Tamayo, Pulmonary. 4. Dr. Mcmillan, Psych. 5. Dr. Valdez, Renal. 6. Dr. Ganies, Cardiology. 7. Dr. Nuñez, Infectious Disease. PROCEDURES/STUDIES PERFORMED: 1. Status post permanent pacemaker. 2. Intubation and extubation. 3. Peritoneal dialysis catheter removal. 4. Tunneled catheter placement. 5. Bilateral thoracentesis. 6. Chest CT. 7. Abdominal CT. HISTORY: [facility] HOSPITAL COURSE: The patient initially presented to [place] [facility] for abdominal pain. The patient was found to have peritonitis based on the number of wbc in the ascites fluid. The patient was admitted to [facility] due to peritoneal dialysis. At this time, the ascites culture is still only showing gram-positive cocci at [place]. Apparently, they could not identify the organisms, therefore this is a send out at this time. Subsequently, at [facility], the patient was getting IV antibiotics per Dr. Nuñez. The patient was in the OR for the peritoneal dialysis catheter removal and tunneled catheter placement. However, as soon as the patient was under anesthesia, the patient had cardiac arrest before any surgeries were done. CPR was started, return of spontaneous circulation was achieved, the patient was intubated. Subsequently, this was found to be due to complete heart block. Temporary pacemaker was inserted. Subsequently, permanent pacemaker was placed. The patient was extubated successfully. Bilateral thoracentesis was performed. The patient slowly improved. Subsequently, peritoneal dialysis catheter was removed as well. At this time, due to debility, the patient will be discharged to [facility] for skilled PT. I will also resume her Eliquis as well. The patient was seen and examined today. It took 33 minutes total to discharge this patient. CONDITION ON DISCHARGE: Improved. DISCHARGE MEDICATIONS: Please see medication reconciliation form. Yiching MD CONCEPCION Frey /[id number] cc: [facility]
--- NOTE | 2019-04-25 15:18 | NUR ---
REPORT GIVEN TO CATRACHO SIFUENTES
[2019-04-25 15:39] VITALS: BP 188/84
--- NOTE | 2019-04-25 16:24 | Diagnostic Imaging Report ---
Procedure: Tunneled hemodialysis catheter placement. Trimming Cutter: Bob Ghosh M.D.. Automatic Buffing Wheel Former: None. Preprocedure diagnosis: End-stage renal disease Postprocedure diagnosis: End-stage renal disease Sedation/anesthesia: Versed 1 mg intravenous, fentanyl 50 mcg intravenous. The patient's heart rate and pulse oximetry were continuously monitored by the interventional radiology nurse. Blood pressure was monitored at 5 minute intervals. Total intraservice time for sedation: 30 minutes Fluoroscopy time: 2.1 minutes Dose area product: 258.1 cGycm2 Contrast used: None Estimated blood loss: Minimal. Blood products administered: None Implants/grafts: 16 Venezuelan, 19 cm tip-cuff tunneled hemodialysis catheter Specimens: Temporary hemodialysis catheter, discarded Complications: No immediate. Condition at completion: Stable Disposition: Returned to ICU Procedure in detail: Informed consent for the procedure was obtained from the patient's power of sewer inspector after discussion of risks and benefits. The right neck and upper chest was prepped and draped in the standard sterile fashion after the patient was placed in the supine position on the fluoroscopic table. Preliminary sonographic evaluation confirmed patency of the right internal jugular vein, evidenced by compressibility. 1% lidocaine was administered into the skin and subcutaneous tissues of the right lower neck for local anesthesia. Then, under continuous sonographic guidance, a 21-gauge micropuncture needle was advanced into the right internal jugular vein. A permanent sonographic image was stored in the medical record. A 0.018 inch wire was advanced centrally under fluoroscopic guidance. The needle was then removed and access was secured with a micropuncture sheath. Intravascular length to the upper right atrium was determined using the microwire, which was then removed along with the inner dilator of the micropuncture sheath. A 0.035 inch Amplatz wire was then advanced through the micropuncture sheath into the inferior vena cava under fluoroscopic guidance. Attention was then turned to the right upper chest. A suitable catheter exit site was determined, approximately 3 fingerbreadths inferior to the clavicle. The skin was marked. 1% lidocaine was used to anesthetize a subcutaneous tract extending from the planned catheter exit site to the venotomy at the right lower neck. A stab incision was made on the right upper chest. Subsequently, the catheter was tunneled from the exit site of the right upper chest to the venotomy at the right lower neck. The retention cuff of the catheter was advanced well into the subcutaneous tunnel. The micropuncture sheath was then removed over the wire and the tract was serially dilated. Finally, a 16.5-Venezuelan peel-away sheath was advanced over the wire under fluoroscopic guidance. The wire and inner dilator of the sheath were removed and the catheter was advanced through the peel-away sheath, which was then broken and removed. The catheter tip was positioned in the upper right atrium. Each catheter lumen showed good bidirectional flow. Each lumen was then packed with 2000 units of heparin. The catheter was secured at the exit site on the right upper chest with monofilament nylon suture. The venotomy at the right lower neck was closed with tissue adhesive. A sterile dressing was applied. The patient tolerated the procedure well without immediate complication. The retention sutures for the right internal jugular temporary hemodialysis catheter were then cut and the catheter was removed in total. Hemostasis was achieved with manual compression and a sterile dressing was applied. Impression: Successful placement of a tunneled dual-lumen hemodialysis catheter (16-Venezuelan, 19-cm tip-cuff length) by a right internal jugular approach, followed by removal of right internal jugular temporary hemodialysis catheter Signed by: Dr. Bob Ghosh M.D. on 04/18/2019 3:21 PM
--- NOTE | 2019-04-25 16:41 | NUR ---
PT DISCHARGED TO [facility] IN SAFE CONDITION
[2019-04-25] MEDS ORDERED: APIXABAN 5 MG TABLET PO SCH (17:00)
--- NOTE | 2019-04-25 23:07 | Progress Note ---
DATE: 04/25/2019 Cardiology Progress Note SUBJECTIVE: No complaints. OBJECTIVE: VITAL SIGNS: Temperature 97.8, heart rate 78, respiratory rate 16, blood pressure 141/68, and O2 saturation 99%. GENERAL: In no acute distress, alert. NECK: No JVD. CHEST: Clear to auscultation. CARDIOVASCULAR: Regular rate and rhythm. Normal S1, S2. ABDOMEN: Soft. EXTREMITIES: Trace edema. Cardiovascular medication reviewed. Amlodipine 5 mg b.i.d., Eliquis 5 mg b.i.d., and vancomycin. STUDIES: Reviewed. Creatinine 5.6. Hemoglobin 8.6 and platelets 192. INR 1.2. ASSESSMENT: 1. A 78-year-old woman with third-degree AV block, status post pacemaker implant. 2. Hypertension. 3. Anemia. 4. Secondary bacterial peritonitis. 5. End-stage renal disease. RECOMMENDATIONS: 1. Continue cardiovascular medications. 2. Upon discharge, follow up in office in 4-6 weeks and with EP in 2 weeks post discharge. MD MARTHA Ramirez/CHUCKIEL /[id number]
--- NOTE | 2019-04-30 12:55 | Operative Report ---
DATE OF PROCEDURE: 04/19/2019 SURGEON: Abiodun Fuchs MD PROCEDURES PERFORMED: Dual chamber permanent pacemaker placement and temporary pacemaker explanation. REASON FOR PROCEDURE: Due to high degree AV block and complete heart block and severe symptomatic bradycardia. DESCRIPTION OF PROCEDURE: The patient was brought into the EP Lab in fasting state. Left chest was prepped and draped in a sterile fashion. Conscious sedation administered with 12 of versed and 50 of fentanyl for 60 minutes while O2 sat, heart rate, and blood pressure were being monitored by me and the circulating nurse. Left subclavian venography was performed. Vancomycin and Ancef were given. A 3 cm skin incision was made. Subcutaneous tissue and pocket were formed. Two guide wires were inserted inside the left axillary vein using modified Seldinger technique with no complications. Pacing lead advanced to the RV apex, sensing 8, threshold 0.9, impendence 580 ohms. Another pacing lead advanced to the right atrial appendage, sensing 2.1, threshold 1.1, impedance 390 ohms. Both leads were sutured to the fascia using 0 silk. Pocket profusely irrigated using antibiotic solution and leads were connected to Jensen dual chamber permanent pacemaker, serial #[id number]. Generator placed inside the pocket and sutured to the fascia using 0 silk. Subcutaneous tissue approximated with 2-0 Vicryl in two layers. Skin was approximated with 4-0 Vicryl and Dermabond. The patient tolerated the procedure well. At this point, the sutures were removed from the left IJ temporary screw-in permanent pacemaker. Device was disconnected from the lead and by using a stylet, the helix was retracted and pacemaker lead was removed from the body. Minor compression was applied for 5 minutes. The patient tolerated the procedure well. No complications. CONCLUSION: Dual chamber permanent pacemaker placement, explantation of a temporary screw-in pacemaker lead. Moderate sedation. Clinical followup in 2 weeks. MD ADIS Henderson/LOKI /[id number]
== END 2019-04-25 16:41 | DRG 856 ==
LOC: MED/SURG2 22:22 → ICU 04-13 14:49 → MED/SURG2 04-20 10:25
PROVIDERS: ADMIT Internal Medicine; ATTEND Internal Medicine
PROC: 5A1D70Z Performance of Urinary Filtration, Intermittent, Less than 6 Hours Per Day (ICD-10-PCS; 2019-04-08)
PROC: 0JH606Z Insertion of Pacemaker, Dual Chamber into Chest Subcutaneous Tissue and Fascia, Open Approach (ICD-10-PCS; principal; 2019-04-09)
PROC: 0JPT0PZ Removal of Cardiac Rhythm Related Device from Trunk Subcutaneous Tissue and Fascia, Open Approach (ICD-10-PCS; 2019-04-09)
PROC: 02PA3MZ Removal of Cardiac Lead from Heart, Percutaneous Approach (ICD-10-PCS; 2019-04-09)
PROC: 02H63JZ Insertion of Pacemaker Lead into Right Atrium, Percutaneous Approach (ICD-10-PCS; 2019-04-09)
PROC: 02HK3JZ Insertion of Pacemaker Lead into Right Ventricle, Percutaneous Approach (ICD-10-PCS; 2019-04-09)
PROC: 5A1D70Z Performance of Urinary Filtration, Intermittent, Less than 6 Hours Per Day (ICD-10-PCS; 2019-04-10)
PROC: 02HV33Z Insertion of Infusion Device into Superior Vena Cava, Percutaneous Approach (ICD-10-PCS; 2019-04-11)
PROC: B548ZZA Ultrasonography of Superior Vena Cava, Guidance (ICD-10-PCS; 2019-04-11)
PROC: 5A02210 Assistance with Cardiac Output using Balloon Pump, Continuous (ICD-10-PCS; 2019-04-13)
PROC: 02H63JZ Insertion of Pacemaker Lead into Right Atrium, Percutaneous Approach (ICD-10-PCS; 2019-04-13)
PROC: 5A1945Z Respiratory Ventilation, 24-96 Consecutive Hours (ICD-10-PCS; 2019-04-13)
PROC: 02PYX3Z Removal of Infusion Device from Great Vessel, External Approach (ICD-10-PCS; 2019-04-13)
PROC: 02HV33Z Insertion of Infusion Device into Superior Vena Cava, Percutaneous Approach (ICD-10-PCS; 2019-04-13)
PROC: 5A1D70Z Performance of Urinary Filtration, Intermittent, Less than 6 Hours Per Day (ICD-10-PCS; 2019-04-13)
PROC: 5A1D70Z Performance of Urinary Filtration, Intermittent, Less than 6 Hours Per Day (ICD-10-PCS; 2019-04-14)
PROC: 0W993ZZ Drainage of Right Pleural Cavity, Percutaneous Approach (ICD-10-PCS; 2019-04-16)
PROC: 5A1D70Z Performance of Urinary Filtration, Intermittent, Less than 6 Hours Per Day (ICD-10-PCS; 2019-04-17)
PROC: 02PY33Z Removal of Infusion Device from Great Vessel, Percutaneous Approach (ICD-10-PCS; 2019-04-18)
PROC: 02HV33Z Insertion of Infusion Device into Superior Vena Cava, Percutaneous Approach (ICD-10-PCS; 2019-04-18)
PROC: 0JH63XZ Insertion of Tunneled Vascular Access Device into Chest Subcutaneous Tissue and Fascia, Percutaneous Approach (ICD-10-PCS; 2019-04-18)
PROC: B548ZZA Ultrasonography of Superior Vena Cava, Guidance (ICD-10-PCS; 2019-04-18)
PROC: 0W9B3ZZ Drainage of Left Pleural Cavity, Percutaneous Approach (ICD-10-PCS; 2019-04-18)
PROC: 5A1D70Z Performance of Urinary Filtration, Intermittent, Less than 6 Hours Per Day (ICD-10-PCS; 2019-04-21)
PROC: 5A1D70Z Performance of Urinary Filtration, Intermittent, Less than 6 Hours Per Day (ICD-10-PCS; 2019-04-24)
PROC: 0WPG03Z Removal of Infusion Device from Peritoneal Cavity, Open Approach (ICD-10-PCS; 2019-04-25)
DX: T80.29XA Infection following other infusion, transfusion and therapeutic injection, initial encounter (principal); A41.9 Sepsis, unspecified organism; K65.8 Other peritonitis; N18.6 End stage renal disease; I46.9 Cardiac arrest, cause unspecified; J96.00 Acute respiratory failure, unspecified whether with hypoxia or hypercapnia; R65.20 Severe sepsis without septic shock; R65.21 Severe sepsis with septic shock; J44.1 Chronic obstructive pulmonary disease with (acute) exacerbation; I44.2 Atrioventricular block, complete; I12.0 Hypertensive chronic kidney disease with stage 5 chronic kidney disease or end stage renal disease; F32.1 Major depressive disorder, single episode, moderate; B96.89 Other specified bacterial agents as the cause of diseases classified elsewhere; M10.9 Gout, unspecified; Z99.2 Dependence on renal dialysis; M32.9 Systemic lupus erythematosus, unspecified; Z79.01 Long term (current) use of anticoagulants; R53.81 Other malaise; F03.90 Unspecified dementia, unspecified severity, without behavioral disturbance, psychotic disturbance, mood disturbance, and anxiety; M89.8X9 Other specified disorders of bone, unspecified site; D63.8 Anemia in other chronic diseases classified elsewhere; Z87.442 Personal history of urinary calculi; Z85.828 Personal history of other malignant neoplasm of skin; F17.210 Nicotine dependence, cigarettes, uncomplicated; Z86.718 Personal history of other venous thrombosis and embolism; E87.70 Fluid overload, unspecified
CPT/HCPCS: 32555; 33208; 33210; 33216; 33234; 36415; 36556; 36558; 36580; 36600; 71045; 71250; 74018; 74176; 74470; 76937; 77001; 80048; 80053; 80202; 82330; 82805; 82948; 83615; 83880; 84100; 84132; 84157; 85025; 85610; 85730; 86706; 87040; 87070; 87205; 87340; 87350; 89051; 90962; 93005; 93306; 94002; 94003; 94640; 97139; C1750; C1769; C1785; C1898; J0461; J0610; J1580; J1644; J1885; J2001; J2250; J2270; J2405; J2550; J2997; J3010; J3370; J7030; J7040; J7050; J7070; J7799; Q0162